=== PATIENT | female | born 1945 | race Caucasian/White ===

== ENCOUNTER → 2016-08-25 | Outpatient (CLI) | payer MEDICARE, OTHER ==
[~2016-08-25] MED LIST: ACID1TAB5 PO; ALLO100T PO; ALPR0.254 PO; ALPR0.5T PO; AMIT25TA9; ASP81CT PO; BARIUM SUSPENSION 2.1% (VANILLA SILQ) 450 ML PO ONE; BSP10T PO; BUSP15TA60 PO; CETI10TA20 PO; CIPR-225 PO; CLCX200C PO; CNC1KV IJ; CYCL1DRO OP; DCS100C PO; DEXL60CA5 PO; ESCI10TA PO; ESCI10TA48 PO; ESCT10T PO; HYDR-3720 PO; HYDR-3812 PO; IBUP-1773 PO; IOHEXOL 350 MG/ML 100 ML (OMNIPAQUE 350) VIAL IV ONE; LACT1CAP62 PO; LANS30CA PO; LUBI24CA PO; LUBI24CA6 PO; LVT.025T PO; METH4TAB10 PO; METR500T PO; NAPR500T3 PO; NFAMINITAB PO; NS 100 ML (IVPB) BAG IV ONE; Nature-Throid; OSTEO BI-FLEX1 EACH PO; OXYC-12 PO; PANT40TA2 PO; POLY17PO23 PO; ROSU5TAB; SCR1T PO; SERT25TA PO; SUCR1TAB36 PO; TEMA30CA PO; THYR32.57 PO; TRAM50TA2 PO; TRAZ150T42 PO; TRAZ150T72 PO; amitiza; aspirin; excedrin; lexapro; mobic; temazepam
--- OUTSIDE RECORDS SUMMARY | 2016-08-25 08:32 | XMS REPORT | Continuity of Care Document ---
Author Author [facility] Organization [facility] Address Unknown Phone Unavailable Care Team Providers Care Patient Observation Assistant Name Role Phone Juan R Mann III PCP [phone] Source Comments Some departments are not documenting in the electronic medical record. If you do not see the information that you expected, contact Release of Information in the Health Information Management department at [phone] for further assistance in locating additional records.[facility] Active Allergies and Adverse Reactions No Known [...] C-Vit Take 1 Cap by mouth Active C-Lopbea-Lec-OM-3 daily. (OCUVITE) 605-54-1-150 zy-esyw-oo-mg cap Lactobacillus rhamnosus Take 1 Cap by [...] Adenocarcinoma of right lung (HCC) 09/16/2015 Overview: Isabelle Walls presents to clinic for consult up CT scan of his chest. As you know, we have been following Isabelle Walls for her history of right lower lobe adenocarcinoma. This was surgically resected via Right VATS right lower lobectomy with Dr. Iona Oconnor on 02/25/15. Pathology confirmed: Adenocarcinoma, papillary predominant, Pathologic Staging (pTNM) [id number], Tumor Size 3.1 x 2.8 x 2.2 [...] to call Dr. Michael Garza's office in [facility] for further care. I will be happy to see her anytime if needed. Pulmonary nodule 02/17/[address] 12/25/2014 Overview: All imaging from [place], [place]- will have all reports scanned RLL [...] Thu Rea 06/01/2016 Documentation Oncology Kika Espinosa, ARCENIOD Social History Tobacco Use Types Packs/Day Years Used Date Former Smoker Cigarettes 0.5 15 Quit: 06/19/1981 Smokeless Tobacco: Never Used Alcohol Use Drinks/Week oz/Week Comments Yes One glass of wine once a month Last Filed Vital Signs Vital Sign Reading Time Taken Blood Pressure 136/56 06/01/2016 2:36 PM MIDWIFE PRACTITIONER Pulse 72 06/01/2016 2:36 PM MIDWIFE PRACTITIONER Temperature 37.4 C (99.3 F) 05/16/2016 10:26 AM MIDWIFE PRACTITIONER Respiratory Rate 16 06/01/2016 2:36 PM MIDWIFE PRACTITIONER Height 1.549 m (5' 0.98") 06/01/2016 2:36 PM MIDWIFE PRACTITIONER Weight 84.641 kg (186 lb 9.6 oz) 06/01/2016 2:36 PM MIDWIFE PRACTITIONER Body Mass Index 35.28 06/01/2016 2:36 PM MIDWIFE PRACTITIONER Oxygen Saturation 98% 06/01/2016 2:36 PM MIDWIFE PRACTITIONER Plan of Care Health Maintenance Due Date Last Done Comments Hepatitis C Screening 1945 Physical (Comprehensive) 1953 Exam Pertussis Vaccine 1957 Tetanus Vaccine 1963 Breast Cancer Screening 1986 Colorectal Cancer 1996 Screening Shingles Vaccine 2006 Osteoporosis Screening 2011 Prevnar/Pneumovax (#1) 2011 Influenza Vaccine 02/17/2017 Results from Last 3 Months [facility] REF LAB SCAN (05/30/2016 9:47 AM)Only the most recent of 3 results within the time period is included. Narrative Ordered by an unspecified provider.
[2016-08-25] MEDS: CATHETER FLUSH 10 ML SYR IV PRN ×2 (08:44→09:00)
--- NOTE | 2016-08-25 12:56 | Diagnostic Imaging Report ---
PROCEDURE: CT chest and abdomen with contrast. TECHNIQUE: Multiple contiguous axial images were obtained through the chest and abdomen after the administration of intravenous contrast. INDICATION: Lung cancer. FINDINGS: The PET/CT exam performed on 11/18/2014 noted several nodular densities in the right lung base. These showed only slightly increased hypermetabolic activity. Reportedly, the patient subsequently underwent a surgical diagnosis and a diagnosis of non-small cell carcinoma was established. The previous CT abdomen/pelvis exam of 02/20/2016 noted a vague ground-glass density in the right lung base as well as several small nodules. Those findings are again visualized on this study and do not seem to have changed significantly. Even so, I am concerned that they could be related to recurrent neoplasm. The right upper lung and left lung are generally clear. There is no sign of a pleural effusion. The heart is enlarged. The aorta is not abnormally dilated. There is no defect within the pulmonary arteries to indicate a pulmonary embolus. There is no significant mediastinal or hilar adenopathy. The thyroid gland is unremarkable. There is no obvious breast mass. The sections through the abdomen and pelvis show that the liver is homogeneous and not enlarged. The liver is of lower density than usually seen. This appearance does suggest fatty metamorphosis. The spleen, pancreas, adrenals, kidneys, aorta, and inferior vena cava are unremarkable for an acute abnormality. As noted on the prior exam, the gallbladder is surgically absent. The stomach is partially filled with oral contrast and consequently difficult to assess. The previous study did show post-kyphoplasty changes involving T11 and T12. Those findings are again evident and no different. There is no fracture or acute bony abnormality appreciated. IMPRESSION: 1. The ground-glass density in the right lung base and the nodules seen in this area on the previous CT abdomen/pelvis exam are again evident and not significantly changed. Even so, these findings are worrisome for recurrent neoplasm. If further imaging is desired, then PET/CT would be recommended. 2. There is no acute cardiopulmonary abnormality noted otherwise. 3. The appearance of the abdomen is stable when compared to the prior exam. 4. These results were discussed with MARCELO Jason. Dictated by: Dictated on workstation # [id number]
--- NOTE | 2016-08-25 18:48 | Diagnostic Imaging Report ---
EXAMINATION: Whole body bone scan. INDICATION: Lung carcinoma. TECHNIQUE: This study was performed following administration of 26.4 mCi of 99m technetium MDP. Anterior and posterior whole body images as well as spot lateral films of the skull and thorax were obtained. COMPARISON: There are no previous bone scans available for comparison. FINDINGS: There is generalized distribution of the radiotracer throughout the osseous structures. There is no focal area of increased or decreased activity to suggest metastatic disease or an acute bony abnormality. There is increased activity about both shoulder and knee joints. This is probably degenerative in nature. Also, there does appear to be a total knee prosthesis in place on the left. There is slightly increased activity in the midportion of left tibia compared to the right tibia. This is of uncertain etiology but could be secondary to the presence of the prosthesis. This does not have the appearance of metastatic disease. Both kidneys do show excretion of the radiotracer. IMPRESSION: There is no abnormal uptake to suggest skeletal metastatic disease. Dictated by: Dictated on workstation # [id number]
== END ==
LOC: RAD 08:28
PROVIDERS: ATTEND Nurse Practitioner Adult Health
DX: C34.81 Malignant neoplasm of overlapping sites of right bronchus and lung (principal)
CPT/HCPCS: 71260; 74160; 78306

== ENCOUNTER 2016-09-13 13:10 | Outpatient (RCR) | payer MEDICARE, OTHER ==
--- OUTSIDE RECORDS SUMMARY | 2016-06-22 09:26 | XMS REPORT | Continuity of Care Document ---
Author Author [facility] Organization [facility] Address Unknown Phone Unavailable Care Team Providers Care Remote Sensing Technologist Name Role Phone Juan R Mann III PCP [phone] Source Comments Some departments are not documenting in the electronic medical record. If you do not see the information that you expected, contact Release of Information in the Health Information Management department at [phone] for further assistance in locating additional records.[facility] Active Allergies and Adverse Reactions No Known Allergies Current Medications Prescription Sig. Disp. Refills Start End Date Status Date busPIRone (BUSPAR) 15 mg Take 15 mg by mouth twice Active tablet daily. dexlansoprazole (+) Take 60 mg by mouth Active (DEXILANT) 60 mg capsule daily. escitalopram oxalate Take 10 mg by mouth at Active (LEXAPRO) 10 mg tablet bedtime daily. traZODone (DESYREL) 150 Take 150 mg by mouth at Active mg tablet bedtime daily. Vit C-Vit Take 1 Cap by mouth Active F-Svyprl-Suz-OM-3 daily. (OCUVITE) 939-97-1-150 yu-tbiw-wd-mg cap Lactobacillus rhamnosus Take 1 Cap by mouth daily Active GG (LACTOBACILLUS as needed. RHAMNOSUS (GG)) 15 billion cell cpSP polyethylene glycol 3350 Take 17 g by mouth daily. Active (GLYCOLAX; MIRALAX) 17 gram/dose powder cyanocobalamin(DIL) Inject 100 mcg to area(s) Active (VITAMIN B-12, RUBRAMIN) as directed every 30 100 mcg/mL days. NATURE-THROID 32.5 mg tab Take 1 Tab by mouth Active daily. traMADol (ULTRAM) 50 mg Take 1-2 Tabs by mouth 60 Tab 0 02/28/20 Active tablet every 6 hours as needed 15 for Pain. LUBIPROSTONE (AMITIZA PO) Take 2 Tabs by mouth. Active afatinib (GILOTRIF) 40 mg Take 1 Tab by mouth 30 Tab 3 06/01/20 Active tablet daily. Take on an empty 16 stomach, at least 1 hour before or 2 hours after food. afatinib (GILOTRIF) 40 mg Take 0.75 Tabs by mouth 30 Tab 3 06/01/20 06/01/20 Discontin tablet daily. Take on an empty 16 16 ued stomach, at least 1 hour before or 2 hours after food. Active Problems Problem Noted Date Adenocarcinoma of right lung (HCC) 09/16/2015 Overview: Mook Carrasco presents to clinic for consult up CT scan of his chest. As you know, we have been following Mook Carrasco for her history of right lower lobe adenocarcinoma. This was surgically resected via Right VATS right lower lobectomy with Dr. Iona Oconnor on 02/25/15. Pathology confirmed: Adenocarcinoma, papillary predominant, Pathologic Staging (pTNM) [id number], Tumor Size 3.1 x 2.8 x 2.2 cm. 04/08/16 CT chest IMPRESSION 1. Increase in size and number of bilateral nodular opacities, concerning for metastatic disease. Infection is an additional, though less likely consideration. 2. No thoracic lymphadenopathy. 04/21/2016- Bronchoscopy - Bronchial Alveolar Lavage, RML: Malignant cells present, consistent with adenocarcinoma. The Grocott stain is negative for Pneumocystis and other fungal organisms. 05/11/2016- Brain MRI- No evidence of intracranial metastatic disease. Moderate chronic microvascular ischemic changes. 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 Last Assessment & Plan: She is here for follow up. I reviewed molecular pathology with her showing exon 19 deletion, this is sensitive EGFR mutation , will have high response rate to EGFR TKI. I discussed I discussed afatinib , EGFR mutation and significant benefit of the drug. I also discussed toxicities including skin rash and diarrhea. Rash management with use of doxycycline and steroid cream discussed and instructed patient to use those medication properly. She will take Afatinib until progression. Dose reduction is possible to manage toxicities. She has knee replacement surgery next week, I want her to start after about a week of surgery. She signed consent, prescription sent to pharmacy. She desires to follow up [place] minimize travel. I encourage her to make appointment and switch care locally. She is planning to call Dr. Michael Garza's office in [facility] for further care. I will be happy to see her anytime if needed. Pulmonary nodule 02/17/[address] 12/25/2014 Overview: All imaging from [place], [place]- will have all reports scanned RLL nodularities near hemidiaphragm. Increased in number since 2009. SUV on PET 2.2 Bronch 6.3.2015- will have all path scanned RLL brush and lavage Negative for malignant cells. Negative AFB, fungal, scant haemophilus (given Levaquin). L ast Assessment & Plan: Reviewed all scans including scan from 2009 and all pathology. Recommending eval with CTS for consideration of resection. Dr. Saeed and I were able to review the prior scan (from 2009) with our radiologist. There is notable increase in nodularity noted in right lung base, despite lack of FDG uptake, there remains a concern for AIS (formally CARMEN). Discussed consultation with surgery, and she is somewhat reluctant. She was agreeable to go for consultation. We discuss alternative to surgery would be serial scan. We could possibly discuss CT guided biopsy with IR, but I think this location would be difficult for them to biopsy. Cough and wheezing 12/25/2014 Last Assessment & Plan: Normal spirometry. Recommended that she try albuterol to see if it helps with her symptoms. Seem to be intermittent. Additional considerations would include GERD she is on Dexilant. Will try the albuterol first to see if it improves her symptoms. Constipation 08/20/2012 Diverticulitis 08/20/2012 Heartburn 08/20/2012 Most Recent Encounters Date Type Specialty Providers Description 06/01/2016 Office Visit Oncology Nikhil Yang MD Adenocarcinoma of right lung (HCC) (Primary Dx) 06/01/2016 Documentation Thu Rea 06/01/2016 Documentation Oncology Kika Espinosa, PHARMD 05/18/2016 [facility] Nikhil Yang MD Malignant neoplasm of Encounter unspecified part of unspecified bronchus or lung 05/16/2016 Office Visit Oncology Iona Oconnor MD Primary lung cancer with Nikhil Yang MD metastasis from lung to other site, right (HCC) (Primary Dx); Adenocarcinoma of right lung (HCC) 05/10/2016 Hospital Radiology Iona Oconnor MD Encounter 05/10/2016 [facility] Radiology Iona Oconnor MD Encounter 05/10/2016 Telephone Oncology Nikhil Yang MD Navigation Assessment 05/10/2016 Screening Form 05/09/2016 Screening Form 04/28/2016 Cancer Cardiothoracic Surgery Luis A Gutierrez Conference MD 04/26/2016 Orders Only Cardiothoracic Surgery Farzaneh Norwood RN Adenocarcinoma of right lung (HCC) (Primary Dx); Recurrent adenocarcinoma of lung, right (HCC) 04/21/2016 [facility] Luis Tamez MD Lung cancer (HCC) Encounter 04/21/2016 Cancer Cardiothoracic Surgery Citlaly Segundo, Conference PLANT ECOLOGIST-AN/SQQ 89(V)15 SONAR SYSTEM JOURNEYMAN 04/21/2016 Surgery Alan Desouza MD BRONCHOSCOPY FLEXIBLE 04/20/2016 Anesthesia Jadyn Martinez MD Event 04/11/2016 Prep for Case Pulmonology Tarah Noel APRN-C 04/08/2016 [facility] Radiology Citlaly Segundo, Encounter PLANT ECOLOGIST-AN/SQQ 89(V)15 SONAR SYSTEM JOURNEYMAN 04/08/2016 Office Visit Cardiothoracic Surgery Citlaly Segundo, Adenocarcinoma of right PLANT ECOLOGIST-AN/SQQ 89(V)15 SONAR SYSTEM JOURNEYMAN lung (HCC) (Primary Dx); Pulmonary nodule; Cough and wheezing; Abnormal chest CT Social History Tobacco Use Types Packs/Day Years Used Date Former Smoker Cigarettes 0.5 15 Quit: 06/19/1981 Smokeless Tobacco: Never Used Alcohol Use Drinks/Week oz/Week Comments Yes One glass of wine once a month Last Filed Vital Signs Vital Sign Reading Time Taken Blood Pressure 136/56 06/01/2016 2:36 PM DIRECTOR BUSINESS DEVELOPMENT Pulse 72 06/01/2016 2:36 PM DIRECTOR BUSINESS DEVELOPMENT Temperature 37.4 C (99.3 F) 05/16/2016 10:26 AM DIRECTOR BUSINESS DEVELOPMENT Respiratory Rate 16 06/01/2016 2:36 PM DIRECTOR BUSINESS DEVELOPMENT Height 1.549 m (5' 0.98") 06/01/2016 2:36 PM DIRECTOR BUSINESS DEVELOPMENT Weight 84.641 kg (186 lb 9.6 oz) 06/01/2016 2:36 PM DIRECTOR BUSINESS DEVELOPMENT Body Mass Index 35.28 06/01/2016 2:36 PM DIRECTOR BUSINESS DEVELOPMENT Oxygen Saturation 98% 06/01/2016 2:36 PM DIRECTOR BUSINESS DEVELOPMENT Plan of Care Health Maintenance Due Date Last Done Comments Hepatitis C Screening 1945 Physical (Comprehensive) 1953 Exam Pertussis Vaccine 1957 Tetanus Vaccine 1963 Breast Cancer Screening 1986 Colorectal Cancer 1996 Screening Shingles Vaccine 2006 Osteoporosis Screening 2011 Prevnar/Pneumovax (#1) 2011 Influenza Vaccine 02/18/2016 Procedures from Last 3 Months Procedure Name Priority Date/Time Associated Diagnosis Comments PROCEDURE RECORD-SCAN 05/24/2016 Results for this 10:41 AM DIRECTOR BUSINESS DEVELOPMENT procedure are in the results section. BRONCHOSCOPY WITH 04/21/2016 Lung cancer (HCC) ULTRASOUND 11:44 AM CDT Special Needs SATTERWHIT E/FREED . PLEASE SCHEDULE 04/21/16 AT 12:00NOON. 90 MIN BLOCK. THANKS BRONCHOSCOPY WITH LAVAGE 04/21/2016 Lung cancer (HCC) 11:44 AM CDT Special Needs SATTERWHIT E/FREED . PLEASE SCHEDULE 04/21/16 AT 12:00NOON. 90 MIN BLOCK. THANKS BRONCHOSCOPY FLEXIBLE 04/21/2016 Lung cancer (HCC) 11:44 AM CDT Special Needs SATTERWHIT E/FREED . PLEASE SCHEDULE 04/21/16 AT 12:00NOON. 90 MIN BLOCK. THANKS Results from Last 3 Months [facility] PATH [facility]LEC REF LAB SCAN (05/30/2016 9:47 AM)Only the most recent of 3 results within the time period is included. Narrative Ordered by an unspecified provider. PROCEDURE RECORD-SCAN (05/24/2016 10:41 AM) Narrative Ordered by an unspecified provider. CYTOGENETICS SCAN (05/20/2016 1:03 PM)Only the most recent of 2 results within the time period is included. Narrative Ordered by an unspecified provider. MISCELLANEOUS SURGICAL PATHOLOGY REFERENCE LAB TEST (05/18/2016 4:00 PM) Component Value Range Test PDL 1 clone 22C3 Reference Lab [facility] Results Ref Lab SEE EMAIL MARKETING INTERN FOR REPORT Specimen Mail slides EPIDERMAL GROWTH FACTOR RECEPTOR (05/18/2016 4:00 PM) Component Value Range Epidermal GFR SEE EMAIL MARKETING INTERN FOR REPORT CHROMOSOMES FISH DNA PROBE (05/18/2016 10:00 AM)Only the most recent of 2 results within the time period is included. Component Value Range Chromosomes Fish DNA SEE EMAIL MARKETING INTERN FOR REPORT Probe MRI HEAD WO/W CONTRAST (05/10/2016 1:06 PM) Impressions 1.No evidence of intracranial metastatic disease. 2.Moderate chronic microvascular ischemic changes. Finalized by SHAYLEE CALRK M.D. on 05/10/2016 1:48 PM. Dictated by SHAYLEE CLARK M.D. on 05/10/2016 1:46 PM. Narrative MRI HEAD WO/W CONTRAST Clinical indication: LUNG CANCER, UNSPECIFIED. Technique: Pre and postcontrast MRI of the brain was performed. Comparison: None Findings: The subarachnoid spaces and ventricles are normal in size for the patient's age. There are moderate supratentorial and pontine white matter FLAIR hyperintensities. No enhancing lesions are identified. There is no mass effect or midline shift. There is no evidence of recent infarct or intracranial hemorrhage. The major and cranial flow voids are preserved. The globes and orbits are unremarkable part from prior bilateral lens surgeries. The paranasal sinuses and mastoid air cells are clear. Procedure Note Interface, Radiant Results - Tue May 10, 2016 1:51 PM DIRECTOR BUSINESS DEVELOPMENT MRI HEAD WO/W CONTRAST Clinical indication: LUNG CANCER, UNSPECIFIED. Technique: Pre and postcontrast MRI of the brain was performed. Comparison: None Findings: The subarachnoid spaces and ventricles are normal in size for the patient's age. There are moderate supratentorial and pontine white matter FLAIR hyperintensities. No enhancing lesions are identified. There is no mass effect or midline shift. There is no evidence of recent infarct or intracranial hemorrhage. The major and cranial flow voids are preserved. The globes and orbits are unremarkable part from prior bilateral lens surgeries. The paranasal sinuses and mastoid air cells are clear. IMPRESSION 1. No evidence of intracranial metastatic disease. 2. Moderate chronic microvascular ischemic changes. Finalized by SHAYLEE CLARK M.D. on 05/10/2016 1:48 PM. Dictated by SHAYLEE CLARK M.D. on 05/10/2016 1:46 PM. POC CREATININE, RAD (05/10/2016 12:42 PM) Component Value Range Creatinine, POC 0.7 0.4-1.00 MG/DL NM PET SCAN TORSO (SKULL-THIGHS) (05/10/2016 10:36 AM) Impressions Low level metabolic activity in known right lower lobe nodular infiltrate with additional nodules remaining to small to accurately characterize by PET. Unchanged differential considerations of infection versus metastatic disease. Biopsy could be obtained for further evaluation if indicated. Approved by Buddy Cao M.D. on 05/11/2016 3:58 PM By my electronic signature, I attest that I have personally reviewed the images for this examination and formulated the interpretations and opinions expressed in this report Finalized by Derek Mendez M.D. on 05/11/2016 3:58 PM. Dictated by Buddy Cao M.D. on 05/11/2016 3:45 PM. Narrative PET/CT NECK, CHEST, ABDOMEN AND PELVIS CLINICAL HISTORY: Female, 70 years old. Lung nodule. COMPARISON: November 18, 2014. RADIOPHARMACEUTICAL: 17.8 mCi IV Fluorine-18 fluorodeoxyglucose (FDG) BLOOD GLUCOSE LEVEL AT THE TIME OF RADIOPHARMACEUTICAL ADMINISTRATION: 86 mg / dL TECHNIQUE: Routine PET images ranging from the base of the skull to the upper thighs were obtained 60 minutes after IV administration of F-18 Fluorodeoxyglucose (FDG). PET images were reviewed in standard orthogonal projections. Low dose non- contrast CT imaging was performed for attenuation correction and localization purposes. FINDINGS: Mean hepatic SUV 2.84, maximum 4.35. Physiologic uptake of F-18 Fluorodeoxyglucose (FDG) tracer is seen within the brain, heart, kidneys, bladder, and bowel. Head / Neck: No metabolically active nodes are visualized in the head or neck. Chest: Low level activity is seen throughout the right lower lobe nodular infiltrates with max SUV of 2.96. Abdomen / Pelvis: No metabolically active nodes are visualized in the abdomen or pelvis. Osseous Structures: No metabolically active areas are visualized in the osseous structures. Additional significant low dose CT findings: Redemonstration of subcentimeter bilateral pulmonary nodules which remain too small to accurately characterize by PET imaging. Prior cholecystectomy. T12 and L1 compression fracture deformities with prior kyphoplasty. Uncorrected PET images:The uncorrected PET images demonstrate no additional abnormality. Procedure Note Interface, Radiant Results - MonMay 11, 2016 4:01 PM DIRECTOR BUSINESS DEVELOPMENT PET/CT NECK, CHEST, ABDOMEN AND PELVIS CLINICAL HISTORY: Female, 70 years old. Lung nodule. COMPARISON: November 18, 2014. RADIOPHARMACEUTICAL: 17.8 mCi IV Fluorine-18 fluorodeoxyglucose (FDG) BLOOD GLUCOSE LEVEL AT THE TIME OF RADIOPHARMACEUTICAL ADMINISTRATION: 86 mg / dL TECHNIQUE: Routine PET images ranging from the base of the skull to the upper thighs were obtained 60 minutes after IV administration of F-18 Fluorodeoxyglucose (FDG). PET images were reviewed in standard orthogonal projections. Low dose non- contrast CT imaging was performed for attenuation correction and localization purposes. FINDINGS: Mean hepatic SUV 2.84, maximum 4.35. Physiologic uptake of F-18 Fluorodeoxyglucose (FDG) tracer is seen within the brain, heart, kidneys, bladder, and bowel. Head / Neck: No metabolically active nodes are visualized in the head or neck. Chest: Low level activity is seen throughout the right lower lobe nodular infiltrates with max SUV of 2.96. Abdomen / Pelvis: No metabolically active nodes are visualized in the abdomen or pelvis. Osseous Structures: No metabolically active areas are visualized in the osseous structures. Additional significant low dose CT findings: Redemonstration of subcentimeter bilateral pulmonary nodules which remain too small to accurately characterize by PET imaging. Prior cholecystectomy. T12 and L1 compression fracture deformities with prior kyphoplasty. Uncorrected PET images: The uncorrected PET images demonstrate no additional abnormality. IMPRESSION Low level metabolic activity in known right lower lobe nodular infiltrate with additional nodules remaining to small to accurately characterize by PET. Unchanged differential considerations of infection versus metastatic disease. Biopsy could be obtained for further evaluation if indicated. Approved by Buddy Cao M.D. on 05/11/2016 3:58 PM By my electronic signature, I attest that I have personally reviewed the images for this examination and formulated the interpretations and opinions expressed in this report Finalized by Derek Mendez M.D. on 05/11/2016 3:58 PM. Dictated by Buddy Cao M.D. on 05/11/2016 3:45 PM. RVP VIRAL PANEL PCR (04/21/2016 2:02 PM) Component Value Range Specimen Source BRONCHIAL ALVEOLAR LAVAGE Adenovirus NOT DETECTED Coronavirus 229E NOT DETECTED Coronavirus HKU1 NOT DETECTED Coronavirus NL63 NOT DETECTED Coronavirus OC43 NOT DETECTED Human Metapneumovirus NOT DETECTED Human NOT DETECTED Rhinovirus/ENTEROVIRUS Influenza A H1N1 2009 NOT DETECTED Influenza A H1 NOT DETECTED Influenza A H3 NOT DETECTED Influenza B NOT DETECTED Parainfluenza 1 NOT DETECTED Parainfluenza 2 NOT DETECTED Parainfluenza 3 NOT DETECTED Parainfluenza 4 NOT DETECTED RSV NOT DETECTED Bordetella Pertussis NOT DETECTED Chlamydophila Pneumoniae NOT DETECTED Mycoplasma Pneumoniae NOT DETECTED Specimen Nasal Wash PJP JIROVECI QUANT PCR (04/21/2016 2:02 PM) Component Value Range PJP Jiroveci BAL PCR Not Detected Quant Unit: DNA copies/ml Assay Range: 84 copies/mL to 1x10e8 copies/mL Expected Value: Not Detected- The limit of quantitation (LOQ) is 84 copies/mL.- Pneumocystis jiroveci DNA detected below the LOQ will be reported as Detected: <84 copies/mL. This test was developed and its performance characteristics determined by [employer]. It has not been cleared or approved by the U.S. Food and Drug Administration.-Results should be used in conjunction with clinical findings, and should not form the sole basis for a diagnosis or treatment decision.- PCR tests are performed pursuant to a license agreement with [employer]. Testing Performed At: [facility] [place] [address] CLIA ID: [id number] Specimen Bronchial Washing RML ASPERGILLUS GALACTOMANN (04/21/2016 2:02 PM) Component Value Range Aspergillus Galactomann 0.057Comment: BAL Reference Value: Index value less than 0.5.- Interpretation:- Patients with an index value of greater than or equal to 0.5 are considered to be positive for galactomannan antigen.-The Platelia(TM) Aspergillus EIA package insert also recommends a new sample be collected from the patient for follow-up testing.-Patients with an index value of less than 0.5 are considered to be negative for galactomannan antigen.-A negative result may indicate that the patients result is below the detectable level of the assay.- Negative results do not rule out the diagnosis of Invasive Aspergillosis.-Pursuant to the package insert, repeat testing is recommended if the result is negative, but the disease is suspected. Due to the potential for environmental contamination when transferred to pour-off tubes, which can lead to false positive results, interpret positive results from samples provided in pour-off tubes with caution.-Results should be used in conjunction with clinical findings, and should not form the sole basis for a diagnosis or treatment decision.- The Platelia Aspergillus Galactomannan EIA is a product of [employer] and is FDA approved for in vitro diagnostic use. Testing Performed At: [facility] [address] [place] [address] CLIA ID: [id number] Specimen Bronchial Washing RML CMV QUANT PCR-FLUID (04/21/2016 2:02 PM) Component Value Range Specimen, CMV BRONCHIAL ALVEOLAR LAVAGE CMV by PCR-fluid Negative for CMV CMV Comment-Fluid This assay uses analyte specific reagents to detect CMV DNA in plasma or fluid. It has not been cleared or approved by the US Food and Drug Administration. The performance characteristics were determined by the [facility]. Results should be correlated with clinical findings. Specimen Fluid - Bronchial Alveolar Lavage GRAM STAIN (04/21/2016 2:02 PM) Component Value Range Battery Name GRAM STAIN Specimen Description BRONCHIAL ALVEOLAR LAVAGE, RML Special Requests NONE Gram Stain RARE NEUTROPHILS FEW RBC'S NO ORGANISMS SEEN Report Status FINAL 04/21/2016 Specimen Bronchial Alveolar Lavage,RML CULTURE-TB (AFB) (04/21/2016 2:02 PM) Component Value Range Battery Name AFB CULTURE Specimen Description BRONCHIAL ALVEOLAR LAVAGE, RML Special Requests NONE Acid Fast Stain NO ACID FAST BACILLI SEEN Culture NO GROWTH OF MYCOBACTERIA AT 6 WEEKS Report Status FINAL 06/06/2016 Specimen Bronchial Alveolar Lavage,RML CULTURE-FUNGAL,OTHER (04/21/2016 2:02 PM) Component Value Range Battery Name FUNGUS CULTURE Specimen Description BRONCHIAL ALVEOLAR LAVAGE, RML Special Requests NONE Culture NO GROWTH OF FUNGUS AT 4 WEEKS Report Status FINAL 05/23/2016 Specimen Bronchial Alveolar Lavage,RML CULTURE-RESP,LOWER W/SENSITIVITY (04/21/2016 2:02 PM) Component Value Range Battery Name LOWER RESP CULTURE Specimen Description BRONCHIAL ALVEOLAR LAVAGE, RML Special Requests NONE Direct Gram Stain RARE NEUTROPHILS FEW RBC'S NO ORGANISMS SEEN Culture Light growth NORMAL OROPHARYNGEAL ROSA Report Status FINAL 04/23/2016 Specimen Bronchial Alveolar Lavage,RML NON-ON AIR DIRECTOR CYTOLOGY (BODY FLUIDS/TISSUE) (04/21/2016 9:59 AM)Only the most recent of 2 results within the time period is included. Component Value Range Cytology [facility] [email or web address] Faith Lancaster MD, Director Cytopathology Department of Pathology and Laboratory Medicine [address] [place] [phone] Office: [phone] CYTOLOGY REPORT NAME: MOOK CARRASCO CYTOLOGY #: [id number] MR #: [id number] ALT ID #: [id number] #: [id number] LOCATION: DATE OF PROCEDURE: 04/21/2016 09:59 AGE: 70 SEX: F DATE RECEIVED: 04/22/2016 : 1945 TIME RECEIVED: 09:59 PHYSICIAN: LUIS TAMEZ DATE OF REPORT: 04/25/2016 COPY TO: Jhoana POLLOCK DATE OF PRINTIN04/25/2016 HISTORY: Date of Last Menstrual Period: None Given Menstrual History: None Given Contraceptive History: None Given Cancer History: None Given Infection History: None Given Treatment History: None Given Other Clinical Conditions: None Given CLINICAL DIAGNOSIS: 70 year old woman with history of adenocarcinoma of the right lung. MATERIAL RECEIVED: A: Bronchial Brushing, RML ################################################## ###################### Final Diagnosis: A. Bronchial Brushing, RML: Negative for malignant cells. Please also see cytology report ([id number]). Attestation: By this signature, I attest that I have personally formulated the final interpretation expressed in this report and that the above diagnosis is based upon my examination of the slides and/or other material indicated in this report. af/04/25/2016 +++Electronically Signed Out By Floyd Stack MD PhD, Attending Physician+++ Cervical cytology is a SCREENING TEST primarily for detecting cancers and precancerous lesions. This screening test has a well documented false negative rate. Your patient's pap test results should be interpreted in conjunction with history and clinical findings. Reported using [facility] terminology. ################################################## ###################### CT CHEST WO CONTRAST (04/08/2016 10:44 AM) Impressions 1.Increase in size and number of bilateral nodular opacities, concerning for metastatic disease. Infection is an additional, though less likely consideration. 2.No thoracic lymphadenopathy. Approved by Fatmata Clark M.D. on 04/08/2016 11:36 AM By my electronic signature, I attest that I have personally reviewed the images for this examination and formulated the interpretations and opinions expressed in this report Finalized by SARA COTE M.D. on 04/08/2016 12:00 PM. Dictated by Fatmata Clark M.D. on 04/08/2016 10:[address] Chest Clinical Indication:Female, 70 years old. Pulmonary nodule Technique: Multiple contiguous axial CT images were obtained through the chest without IV contrast. Post processing coronal and sagittal reconstruction images were made from the axial images. IV contrast: None. Comparison: CT chest from 09/15/2015 Findings: Evaluation of the mediastinum and sd, including the vasculature and for lymphadenopathy, is limited without the use of IV contrast. Axilla, Mediastinum and Sd: No hilar, mediastinal, or axillary lymphadenopathy is identified. Heart and Great Vessels: The heart size is normal without pericardial effusion. Airway, Lungs and Pleura: There has been a previous right lower lobectomy. Clustered nodules in the posterior right lower lung have increased in size and number with progression of adjacent surrounding groundglass opacity. Ground glass nodules have developed in the left upper lobe with a few tiny nodules in the left lower lobe. No pleural effusion or pneumothorax is identified. Upper Abdomen: Prior cholecystectomy is noted. Chest Wall and Osseous Structures: Prior cement augmentation is again seen at T11 and T12 with unchanged compression deformities at these levels. No destructive osseous lesion is identified. Procedure Note Interface, Radiant Results - MonApr 08, 2016 12:[address] Chest Clinical Indication: Female, 70 years old. Pulmonary nodule Technique: Multiple contiguous axial CT images were obtained through the chest without IV contrast. Post processing coronal and sagittal reconstruction images were made from the axial images. IV contrast: None. Comparison: CT chest from 09/15/2015 Findings: Evaluation of the mediastinum and sd, including the vasculature and for lymphadenopathy, is limited without the use of IV contrast. Axilla, Mediastinum and Sd: No hilar, mediastinal, or axillary lymphadenopathy is identified. Heart and Great Vessels: The heart size is normal without pericardial effusion. Airway, Lungs and Pleura: There has been a previous right lower lobectomy. Clustered nodules in the posterior right lower lung have increased in size and number with progression of adjacent surrounding groundglass opacity. Ground glass nodules have developed in the left upper lobe with a few tiny nodules in the left lower lobe. No pleural effusion or pneumothorax is identified. Upper Abdomen: Prior cholecystectomy is noted. Chest Wall and Osseous Structures: Prior cement augmentation is again seen at T11 and T12 with unchanged compression deformities at these levels. No destructive osseous lesion is identified. IMPRESSION 1. Increase in size and number of bilateral nodular opacities, concerning for metastatic disease. Infection is an additional, though less likely consideration. 2. No thoracic lymphadenopathy. Approved by Fatmata Clark M.D. on 04/08/2016 11:36 AM By my electronic signature, I attest that I have personally reviewed the images for this examination and formulated the interpretations and opinions expressed in this report Finalized by SARA COTE M.D. on 04/08/2016 12:00 PM. Dictated by Fatmata Clark M.D. on 04/08/2016 10:53 AM.
[2016-06-22 10:54] LABS: BASOPHILS % (AUTO) 1 % (0-10); EOSINOPHILS # (AUTO) 0.2 10^3/uL (0.0-0.3); EOSINOPHILS % (AUTO) 3 % (0-10); LYMPHOCYTES % (AUTO) 13 % (12-44); MEAN CORPUSCULAR HEMOGLOBIN 27 PG (25-34); MEAN CORPUSCULAR HGB CONC 32 G/DL (32-36); MEAN CORPUSCULAR VOLUME 86 FL (80-99); MEAN PLATELET VOLUME 8.5 FL (7.4-10.4); MONOCYTES # (AUTO) 0.8 X 10^3 (0.0-1.0); MONOCYTES % (AUTO) 10 % (0-12); NEUTROPHILS # (AUTO) 5.8 X 10^3 (1.8-7.8); NEUTROPHILS % (AUTO) 74 % (42-75); PLATELET COUNT 376 10^3/uL (130-400); RED BLOOD COUNT 4.14 10^6/uL (4.35-5.85); RED CELL DISTRIBUTION WIDTH 17.3 % (10.0-14.5); WHITE BLOOD COUNT 7.8 10^3/uL (4.3-11.0)
[2016-06-22 11:42] LABS: ALANINE AMINOTRANSFERASE 17 U/L (0-55); ANION GAP 9 MMOL/L (5-14); ASPARTATE AMINO TRANSFERASE 18 U/L (5-34); BILIRUBIN,TOTAL 0.5 MG/DL (0.1-1.0); BLOOD UREA NITROGEN 16 MG/DL (7-18); BUN/CREATININE RATIO 22; CALCIUM 9.1 MG/DL (8.5-10.1); CARBON DIOXIDE 23 MMOL/L (21-32); CHLORIDE 106 MMOL/L (98-107); CREATININE SERUM 0.74 MG/DL (0.60-1.30); GFR ESTIMATED > 60; GLUCOSE 90 MG/DL (70-105); LACTATE DEHYDROGENASE 276 U/L (125-220); POTASSIUM 4.3 MMOL/L (3.6-5.0); SODIUM 138 MMOL/L (135-145); TOTAL PROTEIN 7.1 G/DL (6.4-8.2)
--- NOTE | 2016-06-22 13:36 | Diagnostic Imaging Report ---
PA and lateral chest at 11:13 a.m. INDICATION: Wxi-lbzww-dwmo carcinoma of lung. FINDINGS: The heart size is within normal limits and stable when compared to 03/12/2015. The prominent epicardial fat pad in the right cardiophrenic angle seen previously is again evident and no different. The lungs are clear. There is no sign of failure, pneumonia or of a pleural effusion to suggest an acute abnormality. There is no parenchymal lung mass identified either. The mediastinum is not widened. The osseous structures are intact. Postkyphoplasty changes involving T12 and L1 are again noted. IMPRESSION: There is no evidence for an acute cardiopulmonary abnormality. Overall, there has been no adverse change since the prior exam. Dictated by: Dictated on workstation # [id number]
[2016-06-27 12:16] LABS: BILIRUBIN,URINE NEGATIVE (NEGATIVE); KETONES,URINE NEGATIVE (NEGATIVE); LEUKOCYTE ESTERASE ,URINE NEGATIVE (NEGATIVE); NITRITE,URINE NEGATIVE (NEGATIVE); PH,URINE 6 (5-9); PROTEIN,URINE NEGATIVE (NEGATIVE); UROBILINOGEN,URINE NORMAL (NORMAL)
[2016-06-27 12:38] LABS: SQUAMOUS EPITHELIAL CELL,UR RARE /HPF
[2016-07-20 11:13] LABS: BASOPHILS % (AUTO) 0 % (0-10); EOSINOPHILS # (AUTO) 0.3 10^3/uL (0.0-0.3); EOSINOPHILS % (AUTO) 6 % (0-10); LYMPHOCYTES % (AUTO) 21 % (12-44); MEAN CORPUSCULAR HEMOGLOBIN 27 PG (25-34); MEAN CORPUSCULAR HGB CONC 32 G/DL (32-36); MEAN CORPUSCULAR VOLUME 84 FL (80-99); MEAN PLATELET VOLUME 9.2 FL (7.4-10.4); MONOCYTES # (AUTO) 0.4 X 10^3 (0.0-1.0); MONOCYTES % (AUTO) 8 % (0-12); NEUTROPHILS % (AUTO) 64 % (42-75); PLATELET COUNT 317 10^3/uL (130-400); WHITE BLOOD COUNT 4.6 10^3/uL (4.3-11.0)
--- NOTE | 2016-07-20 11:25 | Diagnostic Imaging Report ---
INDICATION: Lung cancer EXAMINATION: PA and lateral chest Heart size and pulmonary vascularity are normal. Lungs are clear. There are no effusions or pneumothoraces. IMPRESSION: Negative chest. No change compared to 06/22/2016. Dictated by: Dictated on workstation # [id number]
[2016-07-20 11:46] LABS: ALANINE AMINOTRANSFERASE 14 U/L (0-55); ALBUMIN 4.3 G/DL (3.2-4.5); ANION GAP 10 MMOL/L (5-14); ASPARTATE AMINO TRANSFERASE 19 U/L (5-34); BILIRUBIN,TOTAL 0.6 MG/DL (0.1-1.0); BLOOD UREA NITROGEN 22 MG/DL (7-18); BUN/CREATININE RATIO 28; CALCIUM 9.1 MG/DL (8.5-10.1); CARBON DIOXIDE 25 MMOL/L (21-32); CHLORIDE 106 MMOL/L (98-107); GFR ESTIMATED > 60; GLUCOSE 91 MG/DL (70-105); POTASSIUM 3.7 MMOL/L (3.6-5.0); SODIUM 141 MMOL/L (135-145); TOTAL PROTEIN 7.3 G/DL (6.4-8.2)
[2016-07-21 11:10] LABS: MAGNESIUM 2.1 MG/DL (1.8-2.4)
[2016-08-18 11:10] LABS: BASOPHILS % (AUTO) 0 % (0-10); EOSINOPHILS # (AUTO) 0.2 10^3/uL (0.0-0.3); EOSINOPHILS % (AUTO) 4 % (0-10); LYMPHOCYTES # (AUTO) 1.2 X 10^3 (1.0-4.0); LYMPHOCYTES % (AUTO) 23 % (12-44); MEAN CORPUSCULAR HEMOGLOBIN 27 PG (25-34); MEAN CORPUSCULAR HGB CONC 32 G/DL (32-36); MEAN CORPUSCULAR VOLUME 84 FL (80-99); MEAN PLATELET VOLUME 9.7 FL (7.4-10.4); MONOCYTES # (AUTO) 0.7 X 10^3 (0.0-1.0); MONOCYTES % (AUTO) 12 % (0-12); NEUTROPHILS # (AUTO) 3.3 X 10^3 (1.8-7.8); NEUTROPHILS % (AUTO) 61 % (42-75); PLATELET COUNT 295 10^3/uL (130-400); RED BLOOD COUNT 4.66 10^6/uL (4.35-5.85); RED CELL DISTRIBUTION WIDTH 15.9 % (10.0-14.5); WHITE BLOOD COUNT 5.4 10^3/uL (4.3-11.0)
[2016-08-18 12:06] LABS: ALANINE AMINOTRANSFERASE 16 U/L (0-55); ALBUMIN 4.1 G/DL (3.2-4.5); ANION GAP 11 MMOL/L (5-14); ASPARTATE AMINO TRANSFERASE 21 U/L (5-34); BILIRUBIN,TOTAL 0.5 MG/DL (0.1-1.0); BLOOD UREA NITROGEN 22 MG/DL (7-18); BUN/CREATININE RATIO 29; CALCIUM 8.7 MG/DL (8.5-10.1); CARBON DIOXIDE 22 MMOL/L (21-32); CHLORIDE 108 MMOL/L (98-107); CREATININE SERUM 0.76 MG/DL (0.60-1.30); GFR ESTIMATED > 60; GLUCOSE 90 MG/DL (70-105); MAGNESIUM 2.1 MG/DL (1.8-2.4); POTASSIUM 4.2 MMOL/L (3.6-5.0); SODIUM 141 MMOL/L (135-145); TOTAL PROTEIN 6.5 G/DL (6.4-8.2)
[2016-08-18 14:29] LABS: THYROID STIMULATING HORMONE 1.79 UIU/ML (0.35-4.94)
[~2016-09-13 13:10] MED LIST changes: -BARIUM SUSPENSION 2.1% (VANILLA SILQ) 450 ML PO ONE; -IOHEXOL 350 MG/ML 100 ML (OMNIPAQUE 350) VIAL IV ONE; -NS 100 ML (IVPB) BAG IV ONE
[2016-09-13 13:27] LABS: BASOPHILS % (AUTO) 0 % (0-10); EOSINOPHILS # (AUTO) 0.2 10^3/uL (0.0-0.3); EOSINOPHILS % (AUTO) 3 % (0-10); LYMPHOCYTES # (AUTO) 1.2 X 10^3 (1.0-4.0); LYMPHOCYTES % (AUTO) 18 % (12-44); MEAN CORPUSCULAR HEMOGLOBIN 26 PG (25-34); MEAN CORPUSCULAR HGB CONC 33 G/DL (32-36); MEAN CORPUSCULAR VOLUME 81 FL (80-99); MEAN PLATELET VOLUME 9.6 FL (7.4-10.4); MONOCYTES # (AUTO) 0.6 X 10^3 (0.0-1.0); MONOCYTES % (AUTO) 9 % (0-12); NEUTROPHILS # (AUTO) 4.7 X 10^3 (1.8-7.8); NEUTROPHILS % (AUTO) 70 % (42-75); PLATELET COUNT 335 10^3/uL (130-400); RED BLOOD COUNT 4.95 10^6/uL (4.35-5.85); RED CELL DISTRIBUTION WIDTH 15.6 % (10.0-14.5); WHITE BLOOD COUNT 6.8 10^3/uL (4.3-11.0)
[2016-09-13 14:32] LABS: ALANINE AMINOTRANSFERASE 16 U/L (0-55); ALBUMIN 4.2 G/DL (3.2-4.5); ANION GAP 10 MMOL/L (5-14); ASPARTATE AMINO TRANSFERASE 18 U/L (5-34); BILIRUBIN,TOTAL 0.5 MG/DL (0.1-1.0); BLOOD UREA NITROGEN 14 MG/DL (7-18); BUN/CREATININE RATIO 18; CALCIUM 9.3 MG/DL (8.5-10.1); CARBON DIOXIDE 25 MMOL/L (21-32); CHLORIDE 105 MMOL/L (98-107); CREATININE SERUM 0.76 MG/DL (0.60-1.30); GFR ESTIMATED > 60; GLUCOSE 90 MG/DL (70-105); POTASSIUM 4.1 MMOL/L (3.6-5.0); SODIUM 140 MMOL/L (135-145); TOTAL PROTEIN 7.2 G/DL (6.4-8.2)
== END 2016-09-20 | disposition home or self-care (01) ==
LOC: ONC 13:10
PROVIDERS: ATTEND Internal Medicine Hematology & Oncology
DX: C34.81 Malignant neoplasm of overlapping sites of right bronchus and lung (principal); R53.83 Other fatigue; F41.9 Anxiety disorder, unspecified; F32.9 Major depressive disorder, single episode, unspecified; K21.9 Gastro-esophageal reflux disease without esophagitis; Z79.899 Other long term (current) drug therapy
CPT/HCPCS: 36415; 71020; 80053; 81000; 83615; 83735; 84443; 85025; 99213; 99214

== ENCOUNTER → 2016-11-21 | Outpatient (CLI) | payer MEDICARE, OTHER ==
[~2016-11-21] MED LIST changes: +BARIUM SUSPENSION 2.1% (VANILLA SILQ) 450 ML PO ONE; +CATHETER FLUSH 10 ML SYR IV PRN; +IOHEXOL 350 MG/ML 100 ML (OMNIPAQUE 350) VIAL IV ONE; +NS 100 ML (IVPB) BAG IV ONE
[2016-11-21] MEDS: CATHETER FLUSH 10 ML SYR IV PRN ×2 (11:01→11:24)
--- NOTE | 2016-11-21 13:18 | Diagnostic Imaging Report ---
PROCEDURE: CT chest and abdomen with contrast. INDICATION: Lung cancer. TECHNIQUE: CT imaging of the chest and abdomen following the administration of intravenous contrast. CORRELATION STUDY: 08/25/2016. FINDINGS: CT CHEST: Stable enlargement of the heart. Thoracic aortic contour is unremarkable. There are no pathologically enlarged mediastinal and/or hilar lymph nodes. Small hiatal hernia is present. Postoperative changes of the right lobectomy are noted. There is shift of the mediastinal structures towards the right hemithorax. There are again noted faint wispy-like nodular densities about the residual right lung base. However, these overall are stable to perhaps slightly less pronounced compared to prior imaging. A definitive enlarging mass type of appearance is not suggested. Left lung is clear. Tiny calcified granuloma of the lingula. Visualized osseous structures are without nicole destructive or sclerotic changes. Multilevel kyphoplasty changes of T11-T12 level. CT ABDOMEN: Liver is elongated at greater than 20 cm in length but overall size is likely within normal limits. There is diffuse low attenuation, suggestive of hepatic steatosis. Spleen, pancreas, and adrenal glands are unremarkable. Gallbladder is absent. Abdominal aorta is normal in contour. No pathologically enlarged central or retroperitoneal lymph nodes. Kidneys are with normal enhancement. Partially visualized gastrointestinal tract is unremarkable. The visualized osseous structures are with degenerative changes about the lumbar spine. No lytic or sclerotic changes suggested. Pelvis is not imaged. IMPRESSION: CT CHEST: 1. Postoperative changes of the right lung. Faint areas of nodularity of the right lung base are again demonstrated but overall stable to slightly less pronounced. No definitive new or enlarging mass-type lesion or evidence for thoracic lymphadenopathy. CT ABDOMEN: 1. Negative for acute findings and/or metastatic disease of the abdomen. Dictated by: Dictated on workstation # [id number]
--- NOTE | 2016-11-21 15:10 | Diagnostic Imaging Report ---
Whole body bone scan. Technique: After the intravenous administration of 26.6 mCi of Technetium 99m MDP, whole body delayed phase bone scan images were obtained with lateral views of the head and neck and the chest regions. Indication: Lung cancer. COMPARISON: 08/25/2016 Findings: There is normal distribution of the tracer in the osseous structures with superimposed mild to moderate increased activity around joints particularly the shoulders and the knees in a degenerative pattern. Photopenia in the left knee suggestive of knee replacement is identified. Excretion in the kidneys and bladder seen. There is no intense foci particularly within the axial skeleton to suggest metastasis. IMPRESSION: No scintigraphic evidence of metastasis. Dictated by: Dictated on workstation # [id number]
== END ==
LOC: CARD 10:33
PROVIDERS: ATTEND Nurse Practitioner Adult Health
DX: C34.31 Malignant neoplasm of lower lobe, right bronchus or lung (principal)
CPT/HCPCS: 71260; 74160; 78306

== ENCOUNTER 2016-12-01 14:06 | Outpatient (RCR) | payer MEDICARE, OTHER ==
[2016-09-26 12:08] LABS: BASOPHILS % (AUTO) 0 % (0-10); EOSINOPHILS # (AUTO) 0.2 10^3/uL (0.0-0.3); EOSINOPHILS % (AUTO) 5 % (0-10); LYMPHOCYTES % (AUTO) 22 % (12-44); MEAN CORPUSCULAR HEMOGLOBIN 26 PG (25-34); MEAN CORPUSCULAR HGB CONC 32 G/DL (32-36); MEAN CORPUSCULAR VOLUME 81 FL (80-99); MEAN PLATELET VOLUME 9.9 FL (7.4-10.4); MONOCYTES # (AUTO) 0.5 X 10^3 (0.0-1.0); MONOCYTES % (AUTO) 11 % (0-12); NEUTROPHILS # (AUTO) 2.9 X 10^3 (1.8-7.8); NEUTROPHILS % (AUTO) 62 % (42-75); PLATELET COUNT 287 10^3/uL (130-400); RED BLOOD COUNT 4.96 10^6/uL (4.35-5.85); RED CELL DISTRIBUTION WIDTH 16.3 % (10.0-14.5); WHITE BLOOD COUNT 4.6 10^3/uL (4.3-11.0)
[2016-09-26 13:05] LABS: ALANINE AMINOTRANSFERASE 21 U/L (0-55); ALBUMIN 4.1 G/DL (3.2-4.5); ANION GAP 11 MMOL/L (5-14); ASPARTATE AMINO TRANSFERASE 21 U/L (5-34); BILIRUBIN,TOTAL 0.7 MG/DL (0.1-1.0); BLOOD UREA NITROGEN 16 MG/DL (7-18); BUN/CREATININE RATIO 21; CALCIUM 9.2 MG/DL (8.5-10.1); CARBON DIOXIDE 24 MMOL/L (21-32); CHLORIDE 108 MMOL/L (98-107); CREATININE SERUM 0.76 MG/DL (0.60-1.30); GFR ESTIMATED > 60; GLUCOSE 108 MG/DL (70-105); POTASSIUM 3.8 MMOL/L (3.6-5.0); SODIUM 143 MMOL/L (135-145); TOTAL PROTEIN 7.2 G/DL (6.4-8.2)
--- NOTE | 2016-09-26 13:05 | Diagnostic Imaging Report ---
INDICATION: Lung cancer. COMPARISON: 07/20/2016. FINDINGS: Lower thoracic kyphoplasty treatments noted. No acute-appearing chest wall pathology. Heart size and vascularity are within normal limits. The lungs remain clear. Elevation of the right hemidiaphragm anteriorly a chronic finding. No effusion or pneumothorax. IMPRESSION: Stable chest. Dictated by: Dictated on workstation # [id number]
[2016-09-26 13:25] LABS: THYROID STIMULATING HORMONE 1.85 UIU/ML (0.35-4.94)
--- NOTE | 2016-10-25 13:04 | Diagnostic Imaging Report ---
INDICATION: Lung cancer. EXAMINATION: PA and lateral chest. FINDINGS: Heart size and pulmonary vascularity are normal. Lungs are clear. There are no effusions or pneumothoraces. IMPRESSION: No acute abnormalities of the chest. No interval change since comparison exam dated 09/26/2016. Dictated by: Dictated on workstation # [id number]
[2016-10-25 13:10] LABS: BASOPHILS % (AUTO) 1 % (0-10); EOSINOPHILS # (AUTO) 0.2 10^3/uL (0.0-0.3); EOSINOPHILS % (AUTO) 4 % (0-10); LYMPHOCYTES # (AUTO) 1.5 X 10^3 (1.0-4.0); LYMPHOCYTES % (AUTO) 28 % (12-44); MEAN CORPUSCULAR HEMOGLOBIN 26 PG (25-34); MEAN CORPUSCULAR HGB CONC 33 G/DL (32-36); MEAN CORPUSCULAR VOLUME 80 FL (80-99); MEAN PLATELET VOLUME 10.1 FL (7.4-10.4); MONOCYTES # (AUTO) 0.6 X 10^3 (0.0-1.0); MONOCYTES % (AUTO) 11 % (0-12); NEUTROPHILS % (AUTO) 57 % (42-75); PLATELET COUNT 282 10^3/uL (130-400); RED BLOOD COUNT 4.85 10^6/uL (4.35-5.85); RED CELL DISTRIBUTION WIDTH 16.8 % (10.0-14.5); WHITE BLOOD COUNT 5.3 10^3/uL (4.3-11.0)
[2016-10-25 13:34] LABS: ALANINE AMINOTRANSFERASE 16 U/L (0-55); ALBUMIN 4.2 G/DL (3.2-4.5); ANION GAP 10 MMOL/L (5-14); ASPARTATE AMINO TRANSFERASE 20 U/L (5-34); BILIRUBIN,TOTAL 0.8 MG/DL (0.1-1.0); BLOOD UREA NITROGEN 23 MG/DL (7-18); BUN/CREATININE RATIO 32; CALCIUM 9.1 MG/DL (8.5-10.1); CARBON DIOXIDE 24 MMOL/L (21-32); CHLORIDE 107 MMOL/L (98-107); CREATININE SERUM 0.73 MG/DL (0.60-1.30); GFR ESTIMATED > 60; GLUCOSE 89 MG/DL (70-105); POTASSIUM 3.8 MMOL/L (3.6-5.0); SODIUM 141 MMOL/L (135-145)
[~2016-12-01 14:06] MED LIST changes: -BARIUM SUSPENSION 2.1% (VANILLA SILQ) 450 ML PO ONE; -CATHETER FLUSH 10 ML SYR IV PRN; -IOHEXOL 350 MG/ML 100 ML (OMNIPAQUE 350) VIAL IV ONE; -NS 100 ML (IVPB) BAG IV ONE
[2016-12-01 14:40] LABS: BASOPHILS % (AUTO) 0 % (0-10); EOSINOPHILS # (AUTO) 0.2 10^3/uL (0.0-0.3); EOSINOPHILS % (AUTO) 3 % (0-10); LYMPHOCYTES # (AUTO) 1.4 X 10^3 (1.0-4.0); LYMPHOCYTES % (AUTO) 23 % (12-44); MEAN CORPUSCULAR HEMOGLOBIN 26 PG (25-34); MEAN CORPUSCULAR HGB CONC 32 G/DL (32-36); MEAN CORPUSCULAR VOLUME 82 FL (80-99); MONOCYTES # (AUTO) 0.7 X 10^3 (0.0-1.0); MONOCYTES % (AUTO) 12 % (0-12); NEUTROPHILS # (AUTO) 3.8 X 10^3 (1.8-7.8); NEUTROPHILS % (AUTO) 63 % (42-75); PLATELET COUNT 293 10^3/uL (130-400); RED BLOOD COUNT 4.75 10^6/uL (4.35-5.85); RED CELL DISTRIBUTION WIDTH 17.3 % (10.0-14.5); WHITE BLOOD COUNT 6.1 10^3/uL (4.3-11.0)
[2016-12-01 15:05] LABS: ALANINE AMINOTRANSFERASE 12 U/L (0-55); ALBUMIN 4.3 GM/DL (3.2-4.5); ANION GAP 9 MMOL/L (5-14); ASPARTATE AMINO TRANSFERASE 17 U/L (5-34); BILIRUBIN,TOTAL 0.7 MG/DL (0.1-1.0); BLOOD UREA NITROGEN 17 MG/DL (7-18); BUN/CREATININE RATIO 22 (0-20); CARBON DIOXIDE 22 MMOL/L (21-32); CHLORIDE 108 MMOL/L (98-107); CREATININE SERUM 0.76 MG/DL (0.60-1.30); GFR ESTIMATED > 60; GLUCOSE 93 MG/DL (70-105); HEMOLYSIS 9 (0-29); ICTERUS 0.6 (0-1.9); LIPEMIA 16 (0-49); SODIUM 139 MMOL/L (135-145); TOTAL PROTEIN 6.4 GM/DL (6.4-8.2)
== END 2016-12-25 | disposition home or self-care (01) ==
LOC: ONC 14:06
PROVIDERS: ATTEND Internal Medicine Hematology & Oncology
DX: C34.91 Malignant neoplasm of unspecified part of right bronchus or lung (principal); C78.01 Secondary malignant neoplasm of right lung; C78.02 Secondary malignant neoplasm of left lung; R53.83 Other fatigue; F41.9 Anxiety disorder, unspecified; F32.9 Major depressive disorder, single episode, unspecified; K21.9 Gastro-esophageal reflux disease without esophagitis; K59.00 Constipation, unspecified; R21 Rash and other nonspecific skin eruption; N39.3 Stress incontinence (female) (male); Z79.899 Other long term (current) drug therapy
CPT/HCPCS: 36415; 71020; 80053; 84443; 85025; 99213

== ENCOUNTER 2016-12-28 07:27 | Outpatient (CLI) | payer MEDICARE, OTHER ==
[~2016-12-28] VITALS: Ht 154.9 cm; Wt 77.6 kg
[2016-12-28] MEDS ORDERED: ZOLP10TA PO (10:08)
[2016-12-28] MEDS ORDERED: AFAT20TA PO (10:08)
== END 2016-12-28 10:10 ==
LOC: PREOP 07:27
PROVIDERS: ATTEND Surgery
DX: Z01.818 Encounter for other preprocedural examination (principal); K62.5 Hemorrhage of anus and rectum

== ENCOUNTER 2016-12-30 10:42 | Day surgery (SDC) | payer MEDICARE, OTHER ==
[~2016-12-30] VITALS: Ht 154.9 cm; Wt 77.6 kg
[~2016-12-30 10:42] MED LIST changes: +AFAT20TA PO; -NAPR500T3 PO; +NAPR500T4 PO; +ZOLP10TA PO
--- OUTSIDE RECORDS SUMMARY | 2016-12-30 10:46 | XMS REPORT | Continuity of Care Document ---
Author Author [facility] Organization [facility] Address Unknown Phone Unavailable Care Team Providers Care Emergency Service Worker Name Role Phone Baljit Mann III PCP [phone] Source Comments Some departments are not documenting in the electronic medical record. If you do not see the information that you expected, contact Release of Information in the Health Information Management department at [phone] for further assistance in locating additional records.[facility] Active Allergies and Adverse Reactions No Known Allergies Current Medications Prescription Sig. Disp. Refills Start End Date Status Date busPIRone (BUSPAR) 15 mg Take 15 mg by mouth twice Active tablet daily. dexlansoprazole (+) Take 60 mg by mouth Active (DEXILANT) 60 mg capsule daily. escitalopram oxalate Take 10 mg by mouth at Active (LEXAPRO) 10 mg tablet bedtime daily. Vit C-Vit Take 1 Cap by mouth Active Z-Heoirv-Yiy-OM-3 daily. (OCUVITE) 035-41-4-150 ma-ihvc-tt-mg cap Lactobacillus rhamnosus Take 1 Cap by mouth daily Active GG (LACTOBACILLUS as needed. RHAMNOSUS (GG)) 15 billion cell cpSP polyethylene glycol 3350 Take 17 g by mouth daily. Active (GLYCOLAX; MIRALAX) 17 gram/dose powder cyanocobalamin(DIL) Inject 100 mcg to area(s) Active (VITAMIN B-12, RUBRAMIN) as directed every 30 100 mcg/mL days. NATURE-THROID 32.5 mg tab Take 1 Tab by mouth Active daily. afatinib (GILOTRIF) 20 mg Take 20 mg by mouth Active tablet daily. Take on an empty stomach, at least 1 hour before or 2 hours after food. lubiprostone (AMITIZA) 24 Take 24 mcg by mouth Active mcg cap twice daily with meals. zolpidem (AMBIEN) 10 mg Take 10 mg by mouth at Active tablet bedtime daily. hyoscyamine (ANASPAZ; Place 125 mcg under Active NULEV; SYMAX FASTABS; tongue every 4 hours as HYOMAX-FT; ED-SPAZ; needed for Cramps. OSCIMIN) 0.125 mg rapid dissolve tablet traZODone (DESYREL) 150 Take 150 mg by mouth at 12/29/19 Discontin mg tablet bedtime daily. 17 ued traMADol (ULTRAM) 50 mg Take 1-2 Tabs by mouth 60 Tab 0 02/28/2006/07 Discontin tablet every 6 hours as needed 15 17 ued for Pain. LUBIPROSTONE (AMITIZA PO) Take 2 Tabs by mouth. 12/29/19 Discontin 17 ued afatinib (GILOTRIF) 40 mg Take 1 Tab by mouth 30 Tab 3 06/01/2006/07 Discontin tablet daily. Take on an empty 16 17 ued stomach, at least 1 hour before [...] confirmed: Adenocarcinoma, papillary predominant, Pathologic Staging (pTNM) [id number]/a, Tumor Size 3.1 x 2.8 x 2.2 [...] to call Dr. Michael Garza's office in [facility] for further care. I will be happy to see her anytime if needed. Pulmonary nodule 02/17/[address] 12/25/2014 Overview: All imaging from [place], [place]- will have all reports scanned RLL [...] Recent Encounters Date Type Specialty Providers Description 12/22/2016 Documentation Oncology Radha Chavez Social History Tobacco Use Types Packs/Day Years Used Date Former Smoker Cigarettes 0.5 15 Quit: 06/19/1981 Smokeless Tobacco: Never Used Alcohol Use Drinks/Week oz/Week Comments Yes One glass of wine once a month Last Filed Vital Signs Vital Sign Reading Time Taken Blood Pressure 136/56 06/01/2016 2:36 PM COFFEE SUPERVISOR Pulse 72 06/01/2016 2:36 PM COFFEE SUPERVISOR Temperature 37.4 C (99.3 F) 05/16/2016 10:26 AM COFFEE SUPERVISOR Respiratory Rate 16 06/01/2016 2:36 PM COFFEE SUPERVISOR Height 1.549 m (5' 0.98") 06/01/2016 2:36 PM COFFEE SUPERVISOR Weight 84.641 kg (186 lb 9.6 oz) 06/01/2016 2:36 PM COFFEE SUPERVISOR Body Mass Index 35.28 06/01/2016 2:36 PM COFFEE SUPERVISOR Oxygen Saturation 98% 06/01/2016 2:36 PM COFFEE SUPERVISOR Plan of Care Health Maintenance Due Date Last Done Comments Hepatitis C Screening 1945 Physical (Comprehensive) 1953 Exam Pertussis Vaccine 1957 Tetanus Vaccine 1963 Breast Cancer Screening 1986 Colorectal Cancer 1996 Screening Shingles Vaccine 2006 Osteoporosis Screening 2011 Prevnar/Pneumovax (#1) 2011 Influenza Vaccine 02/17/2017 Results from Last 3 Months Not on file
[2016-12-30] MEDS ORDERED: LIDOCAINE JELLY 2% (XYLOCAINE) 5 ML TUBE MM PRN (11:00)
[2016-12-30] MEDS ORDERED: NS IV 500 ML 500 ML IV PRN (11:15)
[2016-12-30 11:28] VITALS: BP 135/78
[2016-12-30] MEDS ORDERED: MIDAZOLAM 2 MG/2 ML (VERSED) VIAL ONE ×5 (11:30→13:21)
[2016-12-30] MEDS ORDERED: fentaNYL INJECTION 100 MCG/2 ML AMP ONE ×2 (11:31)
[2016-12-30] MEDS ORDERED: LIDOCAINE JELLY 2% (XYLOCAINE) 5 ML TUBE ONE (11:31)
--- NOTE | 2016-12-30 13:02 | Conscious Sedation/ASA ---
Conscious Sedation Pre-Proced Time Reviewed: 12:30 ASA Class: 3 Airway Mallampati Classification: (fort mojave appropriate class) I. II. III, IV Lungs Heart ASA score ASA 1: a normal healthy patient ASA 2: a patient with a mild systemic disease (mid diabetes, controlled hypertension, obesity ASA 3: a patient with a severe systemic disease that limits activity (angina , COPD, prior Myocardial infarction) ASA 4: a patient with an incapacitating disease that is a constant threat to life (CHF, renal failure) ASA 5: a moribund patient not expected to survive 24 hrs. (ruptured aneurysm) ASA 6: a declared brain patient whose organs are being harvested. For emergent operations, add the letter E after the classification Grade 2 Sedation Plan: Analgesia, Amnesia, Plan communicated to team members, Discussed options with patient/fam, Discussed risks with patient/fam Note The patient is an appropriate candidate to undergo the planned procedure, sedation, and anesthesia. The patient immediately re-assessed prior to indication. ROZ ARNOLD MD Dec 30, 2016 1:02 pm
--- NOTE | 2016-12-30 13:04 | Progress Note-Pre Operative ---
Pre-Operative Progress Note H&P Reviewed The H&P was reviewed, patient examined and no changes noted. Date Seen by Provider: Dec 30, 2016 Time Seen by Provider: 12:30 Date H&P Reviewed: Dec 30, 2016 Time H&P Reviewed: 12:30 Pre-Operative Diagnosis: rectal bleeding, hx lung ca ROZ ARNOLD MD Dec 30, 2016 1:04 pm
[2016-12-30] MEDS: MIDAZOLAM 2 MG/2 ML (VERSED) VIAL IVP PRN ×5 (13:05→13:24)
[2016-12-30] MEDS: fentaNYL INJECTION 100 MCG/2 ML AMP IVP PRN ×4 (13:06→13:18)
[2016-12-30] MEDS ORDERED: ONDANSETRON 4 MG/2 ML (SDV) Z0FRAN IV PRN (13:15)
[2016-12-30] MEDS ORDERED: morphine INJ 10 MG/ML 1ML (SYR OR VIAL) IV PRN (13:15)
[2016-12-30] MEDS ORDERED: HYDROcodone/APAP 5 MG/325 MG (LORTAB) TAB PO PRN (13:15)
[2016-12-30] MEDS ORDERED: ACETAMINOPHEN 325 MG TABLET/CAPLET (TYLENOL) PO PRN (13:15)
--- NOTE | 2016-12-30 14:01 | Progress Note-Post Operative ---
Post-Operative Progess Note Surgeon (s)/Software Test Engineer (s) Surgeon ROZ ARNOLD MD Software Test Engineer: none Pre-Operative Diagnosis rectal bleeding, hx lung ca Post-Operative Diagnosis chronic stage 2 ext and int hemorrhoids, moderate-severe sigmoid diverticulosis, mild colitis splenic flexure, no active bleeding. Procedure & Operative Findings Date of Procedure 12/30/16 Procedure Performed/Findings Colonoscopy with bx. Anesthesia Type CS Estimated Blood Loss Estimated blood loss (mL): minimal Specimens/Packing Specimens Removed splenic flexure ROZ ARNOLD MD Dec 30, 2016 2:01 pm
--- NOTE | 2016-12-30 14:04 | Discharge Inst-Surgical ---
D/C Lap Instructions-CAT[place] Follow Up PRN Activity as tolerated High Fiber Diet 25g or more per day Avoid Alcohol, Caffeine, Spicy Maben and Acid foods. Drink 64 fluid oz or more of fluids per day. Symptoms to Report: Fever over 101 degree F, Nausea/Vomiting If any problems/questions: Contact your physician or go to Emergency Room ROZ ARNOLD MD Dec 30, 2016 2:04 pm
[2016-12-30 14:05] VITALS: BP 106/66
[2016-12-30 14:30] VITALS: BP 106/66
--- NOTE | 2017-01-02 10:40 | OPERATIVE REPORT ---
PROCEDURE PHYSICIAN: ROZ HUERTAS DATE OF PROCEDURE: 12/30/2016 ATTENDING PRIMARY CARE PHYSICIAN: Dr. Kelly PREOPERATIVE DIAGNOSIS: Rectal bleeding with history of lung cancer. POSTOPERATIVE DIAGNOSES: 1. Chronic stage II external and internal hemorrhoids. 2. Moderate to severe sigmoid diverticulosis with no active bleeding. 3. Mild descending colitis with no active bleeding. 4. No polyps or any neoplasms identified. PROCEDURE: Colonoscopy with biopsy. SURGEON: Dr. Huertas. ANESTHESIA: Conscious sedation. ESTIMATED BLOOD LOSS: Minimal. FINDINGS: 1. Chronic, stage II external and internal hemorrhoids, not actively edematous or inflamed and no bleeding. 2. There was a moderate to severe sigmoid diverticulosis with no bleeding or mucosal inflammatory changes, as well as no bleeding. 3. There was a mild colitis of the descending colon near the splenic flexure. No other abnormalities were detected. DISPOSITION: The patient tolerated the procedure well. Ms. Isabelle Walls is a 71-year-old female known to us. She has had multiple gastrointestinal issues, including diarrhea, as well as rectal bleeding. She has undergone EGD and colonoscopy by us before in the past. She was found to have reflux esophagitis, mild diffuse gastritis and all biopsies negative. She has also had issues of moderate external and internal hemorrhoids as well as sigmoid diverticulosis. Her hemorrhoids became worse despite maximal medical therapy. She did undergo a formal hemorrhoidectomy In 2012. In 2014 she was diagnosed with lung cancer and underwent thoracotomy, right lower lobectomy February 2015. She did have issues with pain in the left lower abdominal quadrant and underwent another EGD and colonoscopy in 07/2015. EGD showed the same reflux esophagitis and small hiatal hernia, as well as gastritis. Colonoscopy showed chronic, stage II external and internal hemorrhoids and a moderate sigmoid diverticulosis. There was also a small area identified at the hepatic flexure that was inflamed consistent with a focal active colitis on pathology. She was referred to gastroenterology where some medication regimen was started; however, this discontinued. She was started on an oral chemotherapeutic regimen for her lung cancer called Afatinib 30 mg daily. Since that time she had reported noticing small amounts of red blood per rectum. The patient was brought to the endoscopy suite, laid in the left lateral decubitus position. After adequate IV pain and sedative medications and conscious sedation anesthesia, a digital rectal examination was performed. Chronic, stage II external and internal hemorrhoids were identified were identified which were not actively edematous or inflamed and no bleeding. Normal sphincter tone was felt and there were no palpable masses. The endoscope was then intubated into the anus, rectum gently insufflated. The endoscope was then advanced through the valves of [place] of the rectum with no polyps or any neoplasms identified. Through the sigmoid colon a moderate to severe sigmoid diverticulosis identified. There were no mucosal inflammatory changes to indicate any active diverticulitis as well as no bleeding. The endoscope was then advanced through descending colon around the splenic flexure. Around this region, there was a mild colitis identified once again. There was no active bleeding identified. A biopsy was taken of this area using forceps and visualization of good hemostasis. The endoscope was then advanced through the remainder of the transverse and ascending colon to the cecum. These segments were normal. Throughout the colon and rectum there were no active bleeding sites as well as no neoplasms identified. The endoscope was then slowly withdrawn while taking a second look and suctioning residual air with no additional findings. The patient tolerated the procedure well. We will await the biopsy results however treat her conservatively with a high fiber diet with at least 25 to 30 grams of fiber per day, as well as at least 64 fluid ounces of water to promote soft stools on a daily basis. We are unsure of etiology of the rectum bleeding, however, may be due to, internal hemorrhoid flare-up versus mild diverticular bleeding versus mild colitis. We feel that due to her previous history this might be related to a low-level underlying ischemic colitis. Job ID: [id number] Dictated Date: 12/30/2016 13:59:17 Fsr Date: 01/02/2017 10:18:57 / demi GARCIA
== END 2016-12-30 14:30 | disposition home or self-care (01) ==
LOC: ENDO 10:42
PROVIDERS: ATTEND Surgery
DX: K62.5 Hemorrhage of anus and rectum (principal); K64.1 Second degree hemorrhoids; K57.30 Diverticulosis of large intestine without perforation or abscess without bleeding; K52.9 Noninfective gastroenteritis and colitis, unspecified; K63.89 Other specified diseases of intestine; C34.91 Malignant neoplasm of unspecified part of right bronchus or lung; K21.9 Gastro-esophageal reflux disease without esophagitis; K58.1 Irritable bowel syndrome with constipation; E03.9 Hypothyroidism, unspecified; Z79.899 Other long term (current) drug therapy

== ENCOUNTER → 2017-02-16 | Outpatient (CLI) | payer MEDICARE, OTHER ==
[~2017-02-16] MED LIST changes: +BARIUM SUSPENSION 2.1% (VANILLA SILQ) 450 ML PO ONE; +CATHETER FLUSH 10 ML SYR IV PRN; +IOHEXOL 350 MG/ML 100 ML (OMNIPAQUE 350) VIAL IV ONE; +NAPR500T3 PO; -NAPR500T4 PO; +NS 100 ML (IVPB) BAG IV ONE
[2017-02-16] MEDS: CATHETER FLUSH 10 ML SYR IV PRN ×2 (11:06→11:24)
--- NOTE | 2017-02-16 14:04 | Diagnostic Imaging Report ---
PROCEDURE: CT chest and abdomen with contrast. TECHNIQUE: Multiple contiguous axial images were obtained through the chest and abdomen after the administration of intravenous contrast. INDICATION: Lung cancer. The previous CT chest and abdomen exam of 11/21/16 failed to show any sign of malignancy or of an acute abnormality. FINDINGS: As on the prior exam, there are postsurgical changes consistent with prior partial lobectomy of the right lung. The volume loss on the right seen previously is again evident and no different. The lungs are generally clear. The vague area of slightly increased density in the right midlung seen previously is again evident and no different. There is still no sign of an acute cardiopulmonary abnormality. The heart size is enlarged but stable. The aorta is not abnormally dilated and there is no defect within the pulmonary arteries to indicate a pulmonary embolus. There is no mediastinal or hilar adenopathy. The thyroid gland is generally unremarkable. There is no obvious breast mass. The sections through the abdomen show that the liver is of lower density than usually seen. This does suggest fatty metamorphosis. The liver itself is prominent but unchanged in size when compared to the prior exam. The spleen measures 10.4 cm in length and appears similar to the prior study. The pancreas, the adrenals, the aorta and the inferior vena cava are unchanged when compared to the prior exam. The gallbladder is surgically absent. The stomach is partially filled with oral contrast and consequently difficult to assess. There are a few small lymph nodes in the periaortic region. These are similar to the prior study. The bone windows are unremarkable for a fracture or for a destructive lesion. The post kyphoplasty changes involving T11 and T12 seen previously are again evident and no different. IMPRESSION: The appearance of the chest and abdomen is stable when compared to the prior exam. There is no acute cardiopulmonary abnormality identified and there is no sign of neoplastic disease. Dictated by: Dictated on workstation # [id number]
--- NOTE | 2017-02-16 20:32 | Diagnostic Imaging Report ---
EXAMINATION: Whole body bone scan. INDICATION: Lung CA. TECHNIQUE: This study was performed following administration of 25.7 mCi of 99m-technetium MDP. Anterior and posterior whole-body images were obtained. Spot films of the thorax and calvarium were also performed in the lateral projection. FINDINGS: The previous whole body bone scan performed on 11/21/2014 failed to show any sign of metastatic disease. On this exam, there is still generalized uptake of the radiotracer throughout the osseous structures. There is no focal area of increased or decreased activity to suggest metastatic disease. As noted on the prior exam, there is abnormal uptake involving both knee and shoulder joints. Most likely, this is due to degenerative disease. Also, as suggested on the prior exam, there does appear to be a total knee prosthesis in place on the left. Both kidneys do show excretion of the radiotracer. IMPRESSION: The appearance of the bone scan is stable when compared to the prior exam. There is still no abnormal uptake to suggest metastatic disease. Dictated by: Dictated on workstation # [id number]
== END ==
LOC: CARD 10:41
PROVIDERS: ATTEND Nurse Practitioner Adult Health
DX: C34.81 Malignant neoplasm of overlapping sites of right bronchus and lung (principal)
CPT/HCPCS: 71260; 74160; 78306

== ENCOUNTER 2017-03-06 08:41 | Outpatient (RCR) | payer MEDICARE, OTHER ==
[2017-01-12 13:24] LABS: BASOPHILS % (AUTO) 0 % (0-10); EOSINOPHILS # (AUTO) 0.2 10^3/uL (0.0-0.3); EOSINOPHILS % (AUTO) 3 % (0-10); LYMPHOCYTES # (AUTO) 1.3 X 10^3 (1.0-4.0); LYMPHOCYTES % (AUTO) 22 % (12-44); MEAN CORPUSCULAR HEMOGLOBIN 26 PG (25-34); MEAN CORPUSCULAR HGB CONC 32 G/DL (32-36); MEAN CORPUSCULAR VOLUME 82 FL (80-99); MEAN PLATELET VOLUME 9.4 FL (7.4-10.4); MONOCYTES # (AUTO) 0.6 X 10^3 (0.0-1.0); MONOCYTES % (AUTO) 10 % (0-12); NEUTROPHILS # (AUTO) 3.8 X 10^3 (1.8-7.8); NEUTROPHILS % (AUTO) 64 % (42-75); PLATELET COUNT 301 10^3/uL (130-400); RED BLOOD COUNT 4.55 10^6/uL (4.35-5.85); RED CELL DISTRIBUTION WIDTH 15.7 % (10.0-14.5); WHITE BLOOD COUNT 5.9 10^3/uL (4.3-11.0)
[2017-01-12 13:49] LABS: ALANINE AMINOTRANSFERASE 13 U/L (0-55); ALBUMIN 4.1 GM/DL (3.2-4.5); ANION GAP 12 MMOL/L (5-14); ASPARTATE AMINO TRANSFERASE 15 U/L (5-34); BILIRUBIN,TOTAL 0.6 MG/DL (0.1-1.0); BLOOD UREA NITROGEN 20 MG/DL (7-18); BUN/CREATININE RATIO 26; CALCIUM 8.7 MG/DL (8.5-10.1); CARBON DIOXIDE 22 MMOL/L (21-32); CHLORIDE 107 MMOL/L (98-107); CREATININE SERUM 0.76 MG/DL (0.60-1.30); GFR ESTIMATED > 60; GLUCOSE 102 MG/DL (70-105); SODIUM 141 MMOL/L (135-145); TOTAL PROTEIN 7.2 GM/DL (6.4-8.2)
--- NOTE | 2017-01-12 14:20 | Diagnostic Imaging Report ---
PA and lateral views of the chest. INDICATION: Lung cancer. FINDINGS: There is stable opacity in the left lung base probably related to right middle lobe atelectasis. The rest of the lungs appear grossly unremarkable. There is elevation of the right hemidiaphragm with colonic gas seen under the right hemidiaphragm eventration anteriorly. Kyphoplasty changes in the lower thoracic spine seen. When compared to 10/25/2016, no significant change is seen. IMPRESSION: Stable right middle lobe consolidation and atelectasis. Dictated by: Dictated on workstation # [id number]
[2017-02-21 12:37] LABS: BASOPHILS % (AUTO) 0 % (0-10); EOSINOPHILS # (AUTO) 0.3 10^3/uL (0.0-0.3); EOSINOPHILS % (AUTO) 4 % (0-10); LYMPHOCYTES # (AUTO) 1.3 X 10^3 (1.0-4.0); LYMPHOCYTES % (AUTO) 23 % (12-44); MEAN CORPUSCULAR HEMOGLOBIN 25 PG (25-34); MEAN CORPUSCULAR HGB CONC 32 G/DL (32-36); MEAN CORPUSCULAR VOLUME 79 FL (80-99); MEAN PLATELET VOLUME 9.7 FL (7.4-10.4); MONOCYTES # (AUTO) 0.8 X 10^3 (0.0-1.0); MONOCYTES % (AUTO) 14 % (0-12); NEUTROPHILS # (AUTO) 3.4 X 10^3 (1.8-7.8); NEUTROPHILS % (AUTO) 59 % (42-75); PLATELET COUNT 308 10^3/uL (130-400); RED BLOOD COUNT 4.84 10^6/uL (4.35-5.85); RED CELL DISTRIBUTION WIDTH 15.6 % (10.0-14.5); WHITE BLOOD COUNT 5.8 10^3/uL (4.3-11.0)
[2017-02-21 12:58] LABS: ALANINE AMINOTRANSFERASE 14 U/L (0-55); ALBUMIN 4.3 GM/DL (3.2-4.5); ANION GAP 11 MMOL/L (5-14); ASPARTATE AMINO TRANSFERASE 20 U/L (5-34); BILIRUBIN,TOTAL 0.7 MG/DL (0.1-1.0); BLOOD UREA NITROGEN 17 MG/DL (7-18); BUN/CREATININE RATIO 21; CALCIUM 9.2 MG/DL (8.5-10.1); CARBON DIOXIDE 23 MMOL/L (21-32); CHLORIDE 107 MMOL/L (98-107); GFR ESTIMATED > 60; GLUCOSE 95 MG/DL (70-105); POTASSIUM 3.9 MMOL/L (3.6-5.0); SODIUM 141 MMOL/L (135-145); TOTAL PROTEIN 7.6 GM/DL (6.4-8.2)
[~2017-03-06 08:41] MED LIST changes: -BARIUM SUSPENSION 2.1% (VANILLA SILQ) 450 ML PO ONE; -CATHETER FLUSH 10 ML SYR IV PRN; -IOHEXOL 350 MG/ML 100 ML (OMNIPAQUE 350) VIAL IV ONE; -NS 100 ML (IVPB) BAG IV ONE
[2017-03-06 09:15] LABS: BASOPHILS % (AUTO) 0 % (0-10); EOSINOPHILS # (AUTO) 0.2 10^3/uL (0.0-0.3); EOSINOPHILS % (AUTO) 4 % (0-10); LYMPHOCYTES # (AUTO) 1.4 X 10^3 (1.0-4.0); LYMPHOCYTES % (AUTO) 27 % (12-44); MEAN CORPUSCULAR HEMOGLOBIN 25 PG (25-34); MEAN CORPUSCULAR HGB CONC 32 G/DL (32-36); MEAN CORPUSCULAR VOLUME 78 FL (80-99); MEAN PLATELET VOLUME 9.8 FL (7.4-10.4); MONOCYTES # (AUTO) 0.6 X 10^3 (0.0-1.0); MONOCYTES % (AUTO) 12 % (0-12); NEUTROPHILS % (AUTO) 58 % (42-75); PLATELET COUNT 293 10^3/uL (130-400); RED BLOOD COUNT 4.79 10^6/uL (4.35-5.85); RED CELL DISTRIBUTION WIDTH 16.1 % (10.0-14.5); WHITE BLOOD COUNT 5.2 10^3/uL (4.3-11.0)
[2017-03-06 10:07] LABS: ALANINE AMINOTRANSFERASE 13 U/L (0-55); ALBUMIN 4.2 GM/DL (3.2-4.5); ANION GAP 7 MMOL/L (5-14); ASPARTATE AMINO TRANSFERASE 16 U/L (5-34); BILIRUBIN,TOTAL 0.8 MG/DL (0.1-1.0); BLOOD UREA NITROGEN 15 MG/DL (7-18); BUN/CREATININE RATIO 21; CALCIUM 9.1 MG/DL (8.5-10.1); CARBON DIOXIDE 26 MMOL/L (21-32); CHLORIDE 107 MMOL/L (98-107); CREATININE SERUM 0.72 MG/DL (0.60-1.30); GFR ESTIMATED > 60; GLUCOSE 99 MG/DL (70-105); POTASSIUM 3.7 MMOL/L (3.6-5.0); SODIUM 140 MMOL/L (135-145); TOTAL PROTEIN 7.1 GM/DL (6.4-8.2)
== END 2017-03-13 09:33 | disposition home or self-care (01) ==
LOC: ONC 08:41
PROVIDERS: ATTEND Internal Medicine Hematology & Oncology
DX: C34.31 Malignant neoplasm of lower lobe, right bronchus or lung (principal); C78.01 Secondary malignant neoplasm of right lung; C78.02 Secondary malignant neoplasm of left lung; R53.83 Other fatigue; F41.9 Anxiety disorder, unspecified; F32.9 Major depressive disorder, single episode, unspecified; K21.9 Gastro-esophageal reflux disease without esophagitis; K59.00 Constipation, unspecified; R21 Rash and other nonspecific skin eruption; N39.3 Stress incontinence (female) (male); Z79.899 Other long term (current) drug therapy
CPT/HCPCS: 36415; 71020; 80053; 85025; 99213

== ENCOUNTER 2017-07-14 10:21 | Outpatient (RCR) | payer MEDICARE, OTHER ==
[~2017-07-14 10:21] MED LIST changes: +ACHD5005 PO; -HYDR-3812 PO; +NAPR-915 PO; -NAPR500T3 PO
[2017-07-14 11:05] LABS: BASOPHILS % (AUTO) 0 % (0-10); EOSINOPHILS # (AUTO) 0.2 10^3/uL (0.0-0.3); EOSINOPHILS % (AUTO) 3 % (0-10); HEMATOCRIT 37 % (35-52); LYMPHOCYTES # (AUTO) 1.3 X 10^3 (1.0-4.0); LYMPHOCYTES % (AUTO) 25 % (12-44); MEAN CORPUSCULAR HEMOGLOBIN 25 PG (25-34); MEAN CORPUSCULAR HGB CONC 33 G/DL (32-36); MEAN CORPUSCULAR VOLUME 76 FL (80-99); MEAN PLATELET VOLUME 9.7 FL (7.4-10.4); MONOCYTES # (AUTO) 0.6 X 10^3 (0.0-1.0); MONOCYTES % (AUTO) 12 % (0-12); NEUTROPHILS # (AUTO) 3.3 X 10^3 (1.8-7.8); NEUTROPHILS % (AUTO) 61 % (42-75); PLATELET COUNT 313 10^3/uL (130-400); RED BLOOD COUNT 4.81 10^6/uL (4.35-5.85); RED CELL DISTRIBUTION WIDTH 16.7 % (10.0-14.5); WHITE BLOOD COUNT 5.5 10^3/uL (4.3-11.0)
[2017-07-14 11:40] LABS: ALANINE AMINOTRANSFERASE 12 U/L (0-55); ALBUMIN 4.2 GM/DL (3.2-4.5); ALKALINE PHOSPHATASE 147 U/L (40-136); BILIRUBIN,TOTAL 0.7 MG/DL (0.1-1.0); BUN/CREATININE RATIO 27; CARBON DIOXIDE 20 MMOL/L (21-32); CHLORIDE 107 MMOL/L (98-107); GFR ESTIMATED > 60; GLUCOSE 97 MG/DL (70-105); POTASSIUM 3.8 MMOL/L (3.6-5.0); SODIUM 139 MMOL/L (135-145); TOTAL PROTEIN 7.3 GM/DL (6.4-8.2)
--- NOTE | 2017-07-14 11:56 | Diagnostic Imaging Report ---
INDICATION: Lung cancer, followup. TIME OF EXAM: 10:44 AM COMPARISON: Correlation is made with prior chest from 01/12/2017. FINDINGS: The heart size is stable. The lungs appear clear. The pulmonary vascularity is normal. No infiltrate, effusion or pneumothorax is seen. Lower thoracic kyphoplasty changes are again noted. IMPRESSION: Stable chest. No acute feature is detected. Dictated by: Dictated on workstation # [id number]
== END 2017-08-17 | disposition home or self-care (01) ==
LOC: ONC 10:21
PROVIDERS: ATTEND Internal Medicine Hematology & Oncology
DX: C34.31 Malignant neoplasm of lower lobe, right bronchus or lung (principal); C78.01 Secondary malignant neoplasm of right lung; C78.02 Secondary malignant neoplasm of left lung; R53.83 Other fatigue; F41.9 Anxiety disorder, unspecified; F32.9 Major depressive disorder, single episode, unspecified; K21.9 Gastro-esophageal reflux disease without esophagitis; K59.00 Constipation, unspecified; R21 Rash and other nonspecific skin eruption; N39.3 Stress incontinence (female) (male); Z79.899 Other long term (current) drug therapy; C34.81 Malignant neoplasm of overlapping sites of right bronchus and lung
CPT/HCPCS: 36415; 71046; 80053; 85025; 99213

== ENCOUNTER → 2017-08-14 | Outpatient (CLI) | payer MEDICARE, OTHER ==
[~2017-08-14] MED LIST changes: +IOHEXOL 350 MG/ML 100 ML (OMNIPAQUE 350) VIAL IV ONE; +NS 250 ML (IVPB) BAG IV ONE
[2017-08-14 08:26] LABS: HEMOGLOBIN 11.9 G/DL (11.5-16.0); MEAN PLATELET VOLUME 9.4 FL (7.4-10.4); RED BLOOD COUNT 4.77 10^6/uL (4.35-5.85); RED CELL DISTRIBUTION WIDTH 16.8 % (10.0-14.5); WHITE BLOOD COUNT 4.7 10^3/uL (4.3-11.0)
[2017-08-14 08:51] LABS: ALANINE AMINOTRANSFERASE 13 U/L (0-55); ALBUMIN 4.2 GM/DL (3.2-4.5); ALKALINE PHOSPHATASE 137 U/L (40-136); BILIRUBIN,TOTAL 0.6 MG/DL (0.1-1.0); BUN/CREATININE RATIO 24; CALCIUM 8.9 MG/DL (8.5-10.1); CARBON DIOXIDE 22 MMOL/L (21-32); CHLORIDE 108 MMOL/L (98-107); CREATININE SERUM 0.71 MG/DL (0.60-1.30); GFR ESTIMATED > 60; GLUCOSE 98 MG/DL (70-105); POTASSIUM 4.1 MMOL/L (3.6-5.0); SODIUM 141 MMOL/L (135-145); TOTAL PROTEIN 6.9 GM/DL (6.4-8.2)
--- NOTE | 2017-08-14 09:41 | Diagnostic Imaging Report ---
PROCEDURE: CT abdomen and pelvis with contrast. TECHNIQUE: Multiple contiguous axial images were obtained through the abdomen and pelvis after administration of intravenous contrast. INDICATION: Left lower quadrant pain. COMPARISON: Comparison is made with prior exam from 02/16/2017. FINDINGS: Imaging through the lung bases demonstrates minimal subsegmental atelectasis or scarring in the right lower lobe. No discrete liver mass is identified. The gallbladder is surgically absent. Pancreas and spleen are unremarkable. No adrenal mass is identified. The kidneys are unremarkable. The aorta is non-aneurysmal. The small and large bowel loops are normal caliber. No obstruction is identified. There is mild sigmoid diverticulosis but no evidence of acute diverticulitis. There is no ascites. The bladder is unremarkable. No central retroperitoneal or mesenteric lymphadenopathy is seen. The pelvis is unremarkable. Bony structures demonstrate post-kyphoplasty changes at the T11 and T12 levels. IMPRESSION: Essentially unremarkable CT of the abdomen and pelvis. No acute features detected. There is sigmoid diverticulosis without evidence of acute diverticulitis. Dictated by: Dictated on workstation # [id number]
== END ==
LOC: RAD 08:11
PROVIDERS: ATTEND Surgery
DX: K57.30 Diverticulosis of large intestine without perforation or abscess without bleeding (principal); Z90.49 Acquired absence of other specified parts of digestive tract
CPT/HCPCS: 36415; 74177; 80053; 85027

== ENCOUNTER → 2017-08-30 | Outpatient (CLI) | payer MEDICARE, OTHER ==
[~2017-08-30] MED LIST changes: +CATHETER FLUSH 10 ML SYR IV PRN
--- NOTE | 2017-08-30 10:19 | Diagnostic Imaging Report ---
PROCEDURE: CT chest with contrast only. TECHNIQUE: Multiple contiguous axial images were obtained through the chest after administration of intravenous contrast. INDICATION: Lung cancer. FINDINGS: The previous CT chest exam performed on 02/16/2017 failed to show any sign of neoplastic disease or acute abnormality. On this study, the lungs remain clear. There is still no sign of failure, pneumonia or pleural effusion to suggest an acute abnormality. There is no parenchymal mass identified either. The heart is stable in size. The aorta is not abnormally dilated and there is no sign of a dissection. There is no defect within the pulmonary arteries to indicate a pulmonary embolus. There is no mediastinal or hilar adenopathy. Thyroid gland is unremarkable. There is no obvious breast mass. According to our records, the patient has not had a recent (within the last year) mammogram. If patient has had a recent mammogram elsewhere than no further imaging will be necessary. If the patient has not had a recent mammogram, then mammography would be recommended for further evaluation. The sections through the upper abdomen failed to show any sign of acute abnormality. The bone windows are unremarkable for fracture or for destructive lesion. The post kyphoplasty changes involving T11-T12 seen previously are again evident. IMPRESSION: 1. There is no evidence for an acute cardiopulmonary abnormality. There is no sign of a mass lesion to suggest neoplastic disease either. 2. There is no obvious breast mass. Recommendations as above. Dictated by: Dictated on workstation # [id number]
== END ==
LOC: RAD 08:53
PROVIDERS: ATTEND Internal Medicine Hematology & Oncology
DX: C34.31 Malignant neoplasm of lower lobe, right bronchus or lung (principal)
CPT/HCPCS: 71260

== ENCOUNTER → 2017-09-27 | Outpatient (CLI) | payer MEDICARE, OTHER ==
[~2017-09-27] MED LIST changes: -CATHETER FLUSH 10 ML SYR IV PRN; -IOHEXOL 350 MG/ML 100 ML (OMNIPAQUE 350) VIAL IV ONE; -NS 250 ML (IVPB) BAG IV ONE
--- NOTE | 2017-09-27 09:25 | Diagnostic Imaging Report ---
PROCEDURE: US Thyroid. TECHNIQUE: Multiple real-time grayscale images were obtained of the thyroid in various projections. INDICATION: Thyroid nodules. Study is performed for followup. Correlation is made with prior ultrasound from 08/31/2015. The right lobe of the thyroid measures 3.7 x 1.5 x 1.2 cm and the left lobe measures 3.7 x 1.2 x 1.7 cm. Previously noted circumscribed hypoechoic nodule in the lower pole right lobe is again noted measuring 5 mm x 5 mm x 8 mm, stable when compared with prior exam. No new thyroid mass is identified. IMPRESSION: Stable thyroid ultrasound when compared with examination from 08/31/2015. Dictated by: Dictated on workstation # [id number]
== END ==
LOC: RAD 07:47
PROVIDERS: ATTEND Internal Medicine
DX: E04.2 Nontoxic multinodular goiter (principal)
CPT/HCPCS: 76536

== ENCOUNTER → 2017-11-20 | Outpatient (CLI) | payer MEDICARE, OTHER ==
--- NOTE | 2017-11-20 16:56 | Diagnostic Imaging Report ---
PROCEDURE: MRI left joint lower extremity without contrast. TECHNIQUE: Multiplanar, multisequence non contrast-enhanced MRI of the left lower extremity was accomplished. INDICATION: Pain. FINDINGS: There is diffuse edema in the distal talus. There is an elliptical defect in the distal talus likely subchondral fracture or possibly osteochondral lesion. This does appear to fill in with fluid. There is diffuse soft tissue edema about the ankle. Talar dome and plafonds are intact. Distal fibula is intact. Calcaneus is unremarkable. Cuboid, tarsal navicular and cuneiforms are unremarkable. Achilles tendon is normal in appearance. Plantar fascia is unremarkable. IMPRESSION: Focal osteochondral fracture in the distal talus with diffuse marrow edema in the distal 50% of the talus. There is some overlying soft tissue edema and swelling as well. No other internal derangement of the ankle. Dictated by: Dictated on workstation # [id number]
== END ==
LOC: RAD 12:05
PROVIDERS: ATTEND Podiatrist
DX: M84.372A Stress fracture, left ankle, initial encounter for fracture (principal)
CPT/HCPCS: 73721

== ENCOUNTER → 2017-11-22 | Outpatient (CLI) | payer MEDICARE, OTHER ==
--- NOTE | 2017-11-22 12:46 | Diagnostic Imaging Report ---
PROCEDURE: MRI lumbar spine. TECHNIQUE: Multiplanar, multisequence MRI of the lumbar spine was performed without contrast. INDICATION: Back pain. FINDINGS: The previous MRI lumbar spine exam performed on 08/31/2010 noted a mild compression deformity of the superior endplate of T12 as well as a nonacute T11 inferior endplate compression. In the interval since the prior exam, the patient has undergone kyphoplasty procedure of both T11 and T12. The kyphoplasty cement appears to be in good position. On the T1 series of this exam, there are vague areas of diminished signal involving the inferior and anterior inferior endplate of L2, the anterior superior endplate of L3, and the anterior superior endplate of L4. There is also a very small area of slightly diminished signal involving the anterior inferior endplate of L5. There are corresponding areas of slight increased signal on the T2 fat-saturated series. These findings may be related to mild subacute compression deformities of L2, L3, and L4. It would be less likely that these are chronic in nature. If further imaging is desired, then a nuclear medicine bone scan would be recommended. There is no other abnormal signal arising from the osseous structures. The previous study did reveal degenerative disc disease throughout the lumbar spine including mild central stenosis at L4-L5. On this exam, the degenerative disc disease at the L4-L5 level does not appear to have progressed. There is a disc bulge centrally at this level which narrows the AP diameter of the thecal sac to 10.7 mm as opposed to 10.8 mm on the previous study. There is moderate narrowing of the neural foramina bilaterally. This may be slightly worse than on the prior study. In the interval since the prior study, a mild disc bulge has developed at the L3-L4 level. The disc indents the ventral aspect of the thecal sac and narrows the AP diameter to 9.5 mm. On the prior exam, the AP diameter of the thecal sac at this level measured 12.6 mm. There is also narrowing of the neural foramina bilaterally at this level. The neuroforaminal narrowing is somewhat more pronounced than on the prior exam as well. The remainder of the lumbar spine is unremarkable for spinal stenosis or any significant neuroforaminal narrowing. There is no abnormality involving the cord. The central canal is somewhat more prominent than on the prior study. The reason for this is not certain. There is no paraspinal mass visualized. IMPRESSION: 1. In the interval since the prior exam, the patient has undergone a kyphoplasty procedure of T11 and T12. The kyphoplasty cement appears to be in good position and there is no acute abnormality of T11 or T12. 2. The areas of altered signal involving L2, L3, L4, and L5 are of uncertain etiology. Considerations and recommendations as above. 3. The degenerative disc and bony disease at L4-L5 noted on the prior exam has not progressed; however, there is now borderline central stenosis at L3-L4 with moderate narrowing of the neural foramina bilaterally at this level. 4. No new area of spinal stenosis or nerve root encroachment has developed otherwise. Dictated by: Dictated on workstation # [id number]
== END ==
LOC: RAD 10:25
PROVIDERS: ATTEND Internal Medicine
DX: M51.36 Other intervertebral disc degeneration, lumbar region (principal); M99.73 Connective tissue and disc stenosis of intervertebral foramina of lumbar region
CPT/HCPCS: 72148

== ENCOUNTER 2017-11-27 08:55 | Outpatient (RCR) | payer MEDICARE, OTHER ==
[2017-08-30 08:55] LABS: BASOPHILS % (AUTO) 1 % (0-10); EOSINOPHILS # (AUTO) 0.2 10^3/uL (0.0-0.3); EOSINOPHILS % (AUTO) 4 % (0-10); HEMATOCRIT 38 % (35-52); HEMOGLOBIN 12.3 G/DL (11.5-16.0); LYMPHOCYTES # (AUTO) 1.3 X 10^3 (1.0-4.0); LYMPHOCYTES % (AUTO) 24 % (12-44); MEAN CORPUSCULAR HEMOGLOBIN 25 PG (25-34); MEAN CORPUSCULAR HGB CONC 33 G/DL (32-36); MEAN CORPUSCULAR VOLUME 77 FL (80-99); MEAN PLATELET VOLUME 9.7 FL (7.4-10.4); MONOCYTES # (AUTO) 0.5 X 10^3 (0.0-1.0); MONOCYTES % (AUTO) 10 % (0-12); NEUTROPHILS # (AUTO) 3.2 X 10^3 (1.8-7.8); NEUTROPHILS % (AUTO) 61 % (42-75); PLATELET COUNT 332 10^3/uL (130-400); RED BLOOD COUNT 4.95 10^6/uL (4.35-5.85); RED CELL DISTRIBUTION WIDTH 17.6 % (10.0-14.5); WHITE BLOOD COUNT 5.2 10^3/uL (4.3-11.0)
[2017-08-30 09:10] LABS: ALANINE AMINOTRANSFERASE 14 U/L (0-55); ALBUMIN 4.4 GM/DL (3.2-4.5); ALKALINE PHOSPHATASE 147 U/L (40-136); BILIRUBIN,TOTAL 0.6 MG/DL (0.1-1.0); BUN/CREATININE RATIO 18; CALCIUM 9.1 MG/DL (8.5-10.1); CARBON DIOXIDE 22 MMOL/L (21-32); CHLORIDE 108 MMOL/L (98-107); CREATININE SERUM 0.78 MG/DL (0.60-1.30); GFR ESTIMATED > 60; GLUCOSE 103 MG/DL (70-105); POTASSIUM 4.3 MMOL/L (3.6-5.0); SODIUM 139 MMOL/L (135-145); TOTAL PROTEIN 7.3 GM/DL (6.4-8.2)
[~2017-11-27 08:55] MED LIST changes: +FERRIC CARBOXYMALTOSE (CANCER) 750 MG in NS (IVPB) CANCER CENTER 250 ML IV SCH
[2017-11-27 09:14] LABS: BASOPHILS % (AUTO) 1 % (0-10); EOSINOPHILS # (AUTO) 0.2 10^3/uL (0.0-0.3); EOSINOPHILS % (AUTO) 4 % (0-10); HEMATOCRIT 43 % (35-52); HEMOGLOBIN 14.5 G/DL (11.5-16.0); LYMPHOCYTES # (AUTO) 1.2 X 10^3 (1.0-4.0); LYMPHOCYTES % (AUTO) 24 % (12-44); MEAN CORPUSCULAR HEMOGLOBIN 29 PG (25-34); MEAN CORPUSCULAR HGB CONC 34 G/DL (32-36); MEAN CORPUSCULAR VOLUME 85 FL (80-99); MEAN PLATELET VOLUME 9.4 FL (7.4-10.4); MONOCYTES # (AUTO) 0.5 X 10^3 (0.0-1.0); MONOCYTES % (AUTO) 10 % (0-12); NEUTROPHILS # (AUTO) 3.1 X 10^3 (1.8-7.8); NEUTROPHILS % (AUTO) 61 % (42-75); PLATELET COUNT 258 10^3/uL (130-400); RED BLOOD COUNT 5.06 10^6/uL (4.35-5.85); RED CELL DISTRIBUTION WIDTH 19.9 % (10.0-14.5)
[2017-11-27 09:39] LABS: ALANINE AMINOTRANSFERASE 16 U/L (0-55); ALBUMIN 4.4 GM/DL (3.2-4.5); ALKALINE PHOSPHATASE 269 U/L (40-136); BILIRUBIN,TOTAL 0.8 MG/DL (0.1-1.0); BUN/CREATININE RATIO 20; CALCIUM 9.2 MG/DL (8.5-10.1); CARBON DIOXIDE 20 MMOL/L (21-32); CHLORIDE 109 MMOL/L (98-107); CREATININE SERUM 0.69 MG/DL (0.60-1.30); GFR ESTIMATED > 60; GLUCOSE 106 MG/DL (70-105); POTASSIUM 3.8 MMOL/L (3.6-5.0); SODIUM 140 MMOL/L (135-145); TOTAL PROTEIN 7.2 GM/DL (6.4-8.2)
== END 2017-11-28 | disposition home or self-care (01) ==
LOC: ONC 08:55
PROVIDERS: ATTEND Internal Medicine Hematology & Oncology
DX: C34.31 Malignant neoplasm of lower lobe, right bronchus or lung (principal); C78.01 Secondary malignant neoplasm of right lung; C78.02 Secondary malignant neoplasm of left lung; E61.1 Iron deficiency; K90.49 Malabsorption due to intolerance, not elsewhere classified; R53.83 Other fatigue; F41.9 Anxiety disorder, unspecified; F32.9 Major depressive disorder, single episode, unspecified; K21.9 Gastro-esophageal reflux disease without esophagitis; R21 Rash and other nonspecific skin eruption; N39.3 Stress incontinence (female) (male); Z79.899 Other long term (current) drug therapy
CPT/HCPCS: 36415; 80053; 82728; 83540; 85025; 96365; 99213

== ENCOUNTER → 2017-12-18 | Outpatient (CLI) | payer MEDICARE, OTHER ==
[~2017-12-18] MED LIST changes: -FERRIC CARBOXYMALTOSE (CANCER) 750 MG in NS (IVPB) CANCER CENTER 250 ML IV SCH; +GADOBUTROL 10 MMOL/10 ML (GADAVIST) VIAL IV ONE
--- NOTE | 2017-12-18 14:32 | Diagnostic Imaging Report ---
PROCEDURE: MRI lumbar spine with and without contrast. TECHNIQUE: Multiplanar, multisequence MRI of the lumbar spine was performed with and without contrast. INDICATION: Lung cancer, pain. COMPARISON: Study is correlated with a CT performed on 12/14/2017 and also compared with nonenhanced MRI lumbar spine performed on 11/22/2017. FINDINGS: T11 and T12 kyphoplasty cement treats stable compression deformities of those levels without marrow edema or evidence for progressive stature loss. Lumbar statures are within normal limits. Some mild heterogeneity of the lumbar marrow signal intensity, probably reflective of combination of osteopenia as well as secondary arthritic change. No geographic lumbar marrow lesion is found and no abnormal lumbar enhancement following the administration of IV contrast is evident. There is however abnormal marrow signal intensity T2 hyper and T1 hypointense involving the partially visualized sacral ala, left more so than right. This is below the smywi-[id number] on the axial images and is only identified on the parasagittal sequences. These areas do show moderate enhancement following IV contrast, consistent with an active process. When the CT is reviewed, I cannot identify convincing evidence for lucent fracture line however there is some questionable sclerosis in the left sacral ala paralleling the left SI joint. We note that on a bone scan performed from an outside facility on 12/04/2017 at [facility], there was abnormal left greater than right uptake in the sacral ala as well as some mild degenerative lumbar endplate uptake. Findings in the sacral ala, left more so than right, are most suggestive of healing insufficiency-type fractures. Bilateral sacral alar bony metastatic disease would be felt less likely. As this area is only partially visualized and on a limited basis at today's study, pre and post contrast-enhanced MRI through the sacrococcygeal spine recommended. That would be useful particularly if treatment such as sacroplasty would be considered in a patient with painful recent sacral insufficiency fractures as well as to allow us to more confidently exclude the less likely consideration for metastatic disease accounting for these abnormalities. The lumbar alignment is anatomic. There was no paravertebral mass, hemorrhage, or fluid collection. The conus appeared normal. There is normal dispersal of the nerves of the cauda equina and there is no acute intrathecal abnormality. No high-grade lumbar canal, foraminal, or recess stenoses. [id number] lumbar spondylosis is stable and mild. IMPRESSION: 1. The lumbar spine appears nonacute. There are stable, chronic, treated lower thoracic compression fractures. 2. There is however marrow edema and likely an active process involving the patient's left greater than right sacral ala, most suggestive of but inconclusive for sacral insufficiency-type fractures. As this benign diagnosis cannot be confirmed upon review of recent CT, I would suggest a dedicated sacrococcygeal pre and post contrast-enhanced MRI as further evaluation. Dictated by: Dictated on workstation # [id number]
== END ==
LOC: RAD 11:37
PROVIDERS: ATTEND Internal Medicine Hematology & Oncology
DX: C34.31 Malignant neoplasm of lower lobe, right bronchus or lung (principal); M54.5 Low back pain
CPT/HCPCS: 72158

== ENCOUNTER 2018-02-14 10:21 | Outpatient (RCR) | payer MEDICARE, OTHER ==
[~2018-02-14 10:21] MED LIST changes: -GADOBUTROL 10 MMOL/10 ML (GADAVIST) VIAL IV ONE
== END 2018-02-16 | disposition home or self-care (01) ==
LOC: ONC 10:21
PROVIDERS: ATTEND Internal Medicine Hematology & Oncology
DX: C34.31 Malignant neoplasm of lower lobe, right bronchus or lung (principal); C78.01 Secondary malignant neoplasm of right lung; C78.02 Secondary malignant neoplasm of left lung; R53.83 Other fatigue; F41.9 Anxiety disorder, unspecified; F32.9 Major depressive disorder, single episode, unspecified; K21.9 Gastro-esophageal reflux disease without esophagitis; K59.00 Constipation, unspecified; R21 Rash and other nonspecific skin eruption; N39.3 Stress incontinence (female) (male); Z79.899 Other long term (current) drug therapy
CPT/HCPCS: 99213

== ENCOUNTER 2018-04-03 09:57 | Outpatient (CLI) | payer MEDICARE, OTHER ==
[~2018-04-03] VITALS: Ht 154.9 cm; Wt 77.6 kg
[2018-04-03] MEDS ORDERED: CYAN100092 IJ (10:29)
[2018-04-03] MEDS ORDERED: CHOL500049 PO (10:29)
[2018-04-03] MEDS ORDERED: BUSP15TA60 PO (11:04)
[2018-04-04] MEDS ORDERED: SUCR1TAB36 PO (13:22)
== END 2018-04-03 11:05 | disposition home or self-care (01) ==
LOC: PREOP 09:57
PROVIDERS: ATTEND Surgery
DX: Z01.818 Encounter for other preprocedural examination (principal)

== ENCOUNTER 2018-04-04 11:46 | Day surgery (SDC) | payer MEDICARE, OTHER ==
[~2018-04-04] VITALS: Ht 154.9 cm; Wt 77.6 kg
[~2018-04-04 11:46] MED LIST changes: +CHOL500049 PO; +CYAN100092 IJ
[2018-04-04] MEDS ORDERED: LIDOCAINE JELLY 2% 6 ML SYRINGE MM PRN (12:00)
[2018-04-04] MEDS ORDERED: HURRICAINE EXT TUBE (BENZOCAINE) XX PRN (12:00)
[2018-04-04] MEDS ORDERED: LACTATED RINGERS 1,000 ML IV PRN (12:00)
--- NOTE | 2018-04-04 12:10 | Conscious Sedation/ASA ---
Conscious Sedation Pre-Proced Time 11:30 ASA Score 3 For ASA 3 and 4: Consider anesthesia and medical clearance. Also, for patients with a history of failed moderate sedation consider anesthesia. Airway Lungs Heart ASA score ASA 1: a normal healthy patient ASA 2: a patient with a mild systemic disease (mid diabetes, controlled hypertension, obesity ASA 3: a patient with a severe systemic disease that limits activity (angina , COPD, prior Myocardial infarction) ASA 4: a patient with an incapacitating disease that is a constant threat to life (CHF, renal failure) ASA 5: a moribund patient not expected to survive 24 hrs. (ruptured aneurysm) ASA 6: a declared brain patient whose organs are being harvested. For emergent operations, add the letter E after the classification Mallampati Classification Grade 2 Sedation Plan Analgesia, Amnesia, Plan communicated to team members, Discussed options with patient/fam, Discussed risks with patient/fam The patient is an appropriate candidate to undergo the planned procedure, sedation, and anesthesia. The patient immediately re-assessed prior to indication. ROZ ARNOLD MD Apr 04, 2018 12:10 pm
--- NOTE | 2018-04-04 12:10 | Progress Note-Pre Operative ---
Pre-Operative Progress Note H&P Reviewed The H&P was reviewed, patient examined and no changes noted. Date Seen by Provider: Apr 04, 2018 Time Seen by Provider: 11:30 Date H&P Reviewed: Apr 04, 2018 Time H&P Reviewed: 11:30 Pre-Operative Diagnosis: GERD, hx lung cancer ROZ ARNOLD MD Apr 04, 2018 12:10 pm
[2018-04-04] MEDS ORDERED: ONDANSETRON 4 MG/2 ML (SDV) Z0FRAN IV PRN (12:15)
[2018-04-04] MEDS ORDERED: ACETAMINOPHEN 325 MG TABLET PO PRN (12:15)
[2018-04-04] MEDS ORDERED: HYDROcodone/APAP 5 MG/325 MG (LORTAB) TAB PO PRN (12:15)
[2018-04-04] MEDS ORDERED: morphine INJ 10 MG/ML 1ML (SYR OR VIAL) IV PRN (12:15)
[2018-04-04] MEDS ORDERED: proPOfol 200 MG/20 ML (DIPRIVAN) VIAL IV ONE (12:34)
[2018-04-04] MEDS ORDERED: MIDAZOLAM 2 MG/2 ML (VERSED) VIAL ONE (12:34)
[2018-04-04] MEDS ORDERED: LIDOCAINE JELLY 2% 6 ML SYRINGE ONE (12:52)
[2018-04-04] MEDS ORDERED: HURRICAINE EXT TUBE (BENZOCAINE) ONE (12:52)
[2018-04-04 13:20] VITALS: BP 135/64
[2018-04-04 13:21] VITALS: BP 126/71
--- NOTE | 2018-04-04 13:21 | Progress Note-Post Operative ---
Post-Operative Progess Note Surgeon (s)/Education Assistant (s) Surgeon ROZ ARNOLD MD Education Assistant: none Pre-Operative Diagnosis GERD, hx lung cancer Post-Operative Diagnosis reflux esophagitis(stage 2), moderate 3cm HH. moderate gastritis. Procedure & Operative Findings Date of Procedure 04/04/18 Procedure Performed/Findings EGD with bx. Anesthesia Type MAC Estimated Blood Loss Estimated blood loss (mL): minimal Specimens/Packing Specimens Removed GE jxn, antrum ROZ ARNOLD MD Apr 04, 2018 1:21 pm
[2018-04-04] MEDS ORDERED: SUCR1TAB36 PO (13:22)
--- NOTE | 2018-04-04 13:23 | Discharge Inst-Surgical ---
D/C Lap Instructions-KIDO New, Converted, or Re-Newed RX: RX on Chart Follow Up Appt in 6 weeks Activity as tolerated High Fiber Diet 25g or more per day Avoid Alcohol, Caffeine, Spicy [place] and Acid foods. Drink 64 fluid oz or more of fluids per day. Symptoms to Report: Fever over 101 degree F, Nausea/Vomiting If any problems/questions: Contact your physician or go to Emergency Room ROZ ARNOLD MD Apr 04, 2018 1:23 pm
[2018-04-04 13:40] VITALS: BP 136/68
[2018-04-04 13:58] VITALS: BP 136/68
--- NOTE | 2018-04-04 14:16 | Anesthesia-General Post-Op ---
MAC Patient Condition Mental Status/LOC: Same as Preop Cardiovascular: Satisfactory Nausea/Vomiting: Absent Respiratory: Satisfactory Pain: Controlled Complications: Absent Post Op Complications Complications None Follow Up Care/Instructions Patient Instructions None needed. Anesthesiology Discharge Order Discharge Order Patient is doing well, no complaints, stable vital signs, no apparent adverse anesthesia problems. No complications reported per nursing. MINA ROSA CRNA Apr 04, 2018 14:16
--- NOTE | 2018-04-04 21:08 | OPERATIVE REPORT ---
DATE OF SERVICE: 04/04/2018 ATTENDING PRIMARY CARE PHYSICIAN: Dr. Mann. PREOPERATIVE DIAGNOSIS: Worsening gastroesophageal reflux disease with history of right lung cancer. POSTOPERATIVE DIAGNOSES: Reflux esophagitis stage II. Moderate sized hiatal hernia approximately 3 cm in size. Moderate gastritis. PROCEDURE: EGD with biopsy. SURGEON: Roz Arnold MD ANESTHESIA: Monitored anesthesia care. ESTIMATED BLOOD LOSS: Minimal. FINDINGS: Reflux esophagitis stage II with no ulcerations or strictures. Moderate sized hiatal hernia approximately 3 cm in size, moderate severity gastritis with no formal ulcerations, polyps or any neoplasms and no distal obstructions. DISPOSITION: The patient tolerated the procedure well. INDICATIONS: The patient is a 72-year-old female known to us. She has had multiple gastrointestinal issues for many years. She has had reflux, diarrhea and rectal bleeding. We have done previous colonoscopies as well as EGDs on her in the past. We did a formal hemorrhoidectomy in 2012 due to stage III symptomatic hemorrhoids. She has also undergone EGDs with the last one done in 2015, which showed a stage II reflux esophagitis, small hiatal hernia as well as a moderate gastritis. In the fall of 2014, she was diagnosed with lung cancer and did undergo a right thoracotomy and right lower lobe lobectomy in 02/2015. She is currently undergoing oral chemotherapy and followed by [facility] by oncology for this. She also did have an episode of rectal bleeding and she was started on mesalamine, which she states did help her symptoms. She then underwent a followup colonoscopy, which did not show any inflammatory changes. She reports in the past 6 weeks, she has had worsening epigastric burning sensation as well as crampy pain with radiation towards the back. DESCRIPTION OF PROCEDURE: The patient was brought to the endoscopy suite, laid in the left lateral decubitus position with head slightly elevated. After adequate IV pain and sedative medications and monitored anesthesia care, the mouthpiece was applied. Endoscope was placed in the mouth, visualizing the pharynx and hypopharyngeal region. Vocal cords, epiglottis and vallecula identified and appeared normal. The endoscope was then gently intubated in the esophageal opening and esophagus insufflated. The endoscope was then advanced through the first, second and third portions of the esophagus at the level of the GE junction. A reflux esophagitis stage II was identified with no ulcers or strictures identified. A biopsy was taken of the GE junction with forceps with visualization of good hemostasis. The endoscope was then advanced into the stomach and endoscope retroflexed, visualizing a moderate sized hiatal hernia approximately 3 cm in size. We feel that this is the most likely cause of her symptomatology. There was also a moderate severity gastritis; however, no formal ulcerations, polyps or any neoplasms. A biopsy was taken of the stomach antrum to rule out H. pylori with visualization of good hemostasis. The endoscope was then advanced to the pylorus into the first and second portion of the duodenum, which appeared normal with no distal obstructions. The patient tolerated the procedure well. We feel that the majority of her symptoms are due to reflux and hiatal hernia as well as acid hypersecretion. She is currently on Dexilant; however, is still symptomatic. We will add Carafate 1 gram q.i.d. for the next two weeks on a p.r.n. basis. She will also need to proceed with the necessary lifestyle and diet accommodation including small and more frequent meals, avoidance of eating at night as well as head elevation while lying supine. She does have a history of lung cancer with active disease and does not appear to be a surgical candidate at this time. We will continue with medical management at this time and continue to monitor her progress. Job ID: [id number] DocumentID: [id number] Dictated Date: 04/04/2018 13:21:04 Casing In Line Feeder Date: 04/04/2018 21:07:37 Dictated By: ROZ ARNOLD MD MTDD
== END 2018-04-04 13:45 | disposition home or self-care (01) ==
LOC: ENDO 11:46
PROVIDERS: ATTEND Surgery
DX: K21.0 Gastro-esophageal reflux disease with esophagitis (principal); K44.9 Diaphragmatic hernia without obstruction or gangrene; K29.70 Gastritis, unspecified, without bleeding; C34.91 Malignant neoplasm of unspecified part of right bronchus or lung; E03.9 Hypothyroidism, unspecified; Z79.899 Other long term (current) drug therapy; Z87.891 Personal history of nicotine dependence
CPT/HCPCS: 88305

== ENCOUNTER → 2018-04-13 | Outpatient (CLI) | payer MEDICARE, OTHER ==
--- NOTE | 2018-04-13 16:56 | Diagnostic Imaging Report ---
PROCEDURE: US Thyroid. TECHNIQUE: Multiple real-time grayscale images were obtained of the thyroid in various projections. INDICATION: Thyromegaly. FINDINGS: The previous thyroid ultrasound exam performed on 09/27/2017 noted that the thyroid gland was not enlarged but there was a circumscribed hypoechoic nodule in the lower pole of the right lobe measuring 5 x 5 x 8 mm. On this exam, that nodule is again identified and does measure slightly larger. It is now estimated to be 7 x 5 x 6 mm. Furthermore in the interval since the prior exam, a new solid-appearing nodule has developed in the midportion of the left lobe. This measures 7 x 4 x 5 mm. I suspect that these nodules are benign and as they are less than 1 cm in size, I doubt that they could be resolved by nuclear medicine thyroid imaging. I would recommend that a short-term (three month) followup ultrasound exam be performed for further study. The thyroid gland itself is not enlarged. The right lobe measures 3.3 x 1.2 x 1.5 cm while the left lobe is estimated to be 3.3 x 1.7 x 0.5 cm (normal gland size 4-5 x 2 x 2 cm or less). IMPRESSION: 1. The small nodule in the inferior pole of the right lobe seen previously is minimally larger on this exam. A new small nodule has also developed in the left lobe. These nodules are most likely benign. Even so, a short-term (three month) followup ultrasound exam would be recommended for continued evaluation. Dictated by: Dictated on workstation # [id number]
== END ==
LOC: RAD 12:13
PROVIDERS: ATTEND Internal Medicine
DX: E01.0 Iodine-deficiency related diffuse (endemic) goiter (principal)
CPT/HCPCS: 76536

== ENCOUNTER 2018-05-24 14:52 | Outpatient (CLI) | payer MEDICARE, OTHER ==
[~2018-05-24] VITALS: Ht 154.9 cm; Wt 81.2 kg
[2018-05-24 14:59] VITALS: BP 140/75
[2018-05-24] MEDS ORDERED: ESCI10TA PO (15:05)
[2018-05-24] MEDS ORDERED: LEVO50TA6 PO (15:05)
[2018-05-24] MEDS ORDERED: AFAT20TA PO (15:05)
[2018-05-24] MEDS ORDERED: ACYC400T PO (15:05)
[2018-05-24] MEDS ORDERED: POLY119P5 PO (15:05)
[2018-05-24] MEDS ORDERED: DEXL60CA PO (15:05)
== END 2018-05-24 15:15 | disposition home or self-care (01) ==
LOC: PREOP 14:52
PROVIDERS: ATTEND Obstetrics & Gynecology
DX: Z01.818 Encounter for other preprocedural examination (principal)
CPT/HCPCS: 87081

== ENCOUNTER 2018-05-29 08:45 | Day surgery (SDC) | payer MEDICARE, OTHER ==
[~2018-05-29] VITALS: Ht 154.9 cm; Wt 80.3 kg
[~2018-05-29 08:45] MED LIST changes: +ACYC400T PO; +DEXL60CA PO; +LEVO50TA6 PO; +POLY119P5 PO
[2018-05-29 09:00] VITALS: BP 133/63
[2018-05-29] MEDS ORDERED: FAMOTIDINE 20MG/2ML IV (PEPCID) IV ONE (09:30)
[2018-05-29] MEDS ORDERED: ceFAZolin INJECTION 1,000 MG in NS (IVPB) 50 ML IV ONE (09:30)
[2018-05-29] MEDS ORDERED: fentaNYL INJECTION 100 MCG/2 ML AMP ONE (09:31)
[2018-05-29] MEDS ORDERED: LIDOCAINE PF 2% 5 ML (XYLOCAINE) VIAL ONE (09:31)
[2018-05-29] MEDS ORDERED: ONDANSETRON 4 MG/2 ML (SDV) Z0FRAN ONE (09:31)
[2018-05-29] MEDS ORDERED: proPOfol 200 MG/20 ML (DIPRIVAN) VIAL IV ONE (09:31)
[2018-05-29] MEDS ORDERED: DEXAMETHASONE 10 MG/ML (DECADRON) 1 ML VIAL ONE (09:31)
[2018-05-29] MEDS ORDERED: SEVOFLURANE (ULTANE) 15 ML INHAL SOLN ONE (09:31)
[2018-05-29] MEDS ORDERED: VASOPRESSIN INJECTION 20 UNIT/ML VIAL ONE (09:36)
[2018-05-29] MEDS ORDERED: NS (IVPB) 100 ML ONE (09:36)
[2018-05-29] MEDS: LACTATED RINGERS 1,000 ML IV PRN ×2 (09:40→10:50)
--- NOTE | 2018-05-29 09:46 | Progress Note-Pre Operative ---
Pre-Operative Progress Note H&P Reviewed The H&P was reviewed, patient examined and no changes noted. Date Seen by Provider: May 29, 2018 Time Seen by Provider: 09:45 Date H&P Reviewed: May 29, 2018 Time H&P Reviewed: 09:45 Pre-Operative Diagnosis: cystocele, stress incontinence MABEL ROBERT DO May 29, 2018 09:46
[2018-05-29] MEDS ORDERED: ESTRADIOL VAGINAL CREAM 42.5 GM (ESTRACE) VG ONE (10:54)
--- NOTE | 2018-05-29 11:12 | Operative Report ---
Operative Report Date of Procedure/Surgery May 29, 2018 Surgeon (s) MABEL ROBERT DO Carton Marker Machine (s): NA Post-Operative Diagnosis cystocele Procedure Performed anterior colporrhaphy Description of Procedure Anesthesia Type: General Estimated blood loss (mL): 50 Specimen(s) collected/removed none Description of the Procedure With informed consent the patient was taken to the operating room where general anesthesia was found to be adequate. A Albert catheter was placed in the bladder. She was then prepped and draped in the usual sterile fashion. The previously repaired cystocele had recurred after previous cystocele raid. She also had previously had a Solyx pubovaginal sling. I was concerned that this felt as though one of the wings (the left side) had flipped. However, once she was asleep and relaxed, I could not feel the sling. Her urethra was well supported. There was no evidence of mesh visible or palpable. I injected the anterior vaginal epithelium with dilute Vasopressin. I then grasped in the midline with an Allis clamp and then made a midline incision with the scalpel. I then dissected the pubovaginal fascia off of the vaginal epithelium. I then repaired the midline defect with 2-0 Vicryl in mattress style interrupted sutures in two layers reducing the defect laterally to the white line. Then I did a Tiffanie plication under the urethra with the 2-0 Vicryl supporting the urethra. The excessive vaginal epithelium was now excised and the defect was closed with 2-0 Vicryl in a running fashion. The vagina was now irrigated with saline and then packed with a vaginal pack coated with Estrace cream. The patient was now awakened and taken to the recovery room in a stable condition. Sponge, lap, needle and instrument counts were correct times two. Findings of the Procedure 3-4 + cystocele with good support of the urethra Allergies and Home Medications Allergies Coded Allergies: No Known Drug Allergies (Unverified , 11/09/15) Home Medications Acyclovir 400 Mg Tablet, 400 MG PO DAILY PRN for mouth sores, (Reported) Afatinib Dimaleate 20 Mg Tablet, 20 MG PO DAILY, (Reported) Alprazolam 0.25 Mg Tablet, 0.25 MG PO BID, (Reported) Buspirone HCl 15 Mg Tablet, 15 MG PO BID, (Reported) Cetirizine HCl 10 Mg Tablet, 10 MG PO HS PRN for allergies, (Reported) Cyanocobalamin (Vitamin B-12) 1,000 Mcg/1 Ml Kit, 1,000 MCG IJ monthly, ( Reported) Dexlansoprazole 60 Mg , 60 MG PO DAILY, (Reported) Escitalopram Oxalate 10 Mg Tablet, 10 MG PO DAILY, (Reported) Hydrocodone Bit/Acetaminophen 1 Tab Tab, 2 TAB PO Q6H PRN for PAIN Prescribed by: MABEL ROBERT on 05/29/181226 Ibuprofen 600 Mg Tablet, 600 MG PO Q6H Prescribed by: MABEL ROBERT on 05/29/181226 Levothyroxine Sodium 50 Mcg Tablet, 50 MCG PO DAILY, (Reported) Lubiprostone 24 Mcg Capsule, 24 MCG PO BID, (Reported) Polyethylene Glycol 3350 119 Gm Powder, 17 GM PO DAILY, (Reported) Zolpidem Tartrate 10 Mg Tablet, 10 MG PO HS, (Reported) [Benzocaine/Menthol] 56 ML AEROSOL, 56 ML TP UD PRN for PAIN-MILD EXTERNAL USE ONLY Prescribed by: MABEL ROBERT on 05/29/187 Patient Home Medication List Home Medication List Reviewed: Yes MABEL ROBERT DO May 29, 2018 11:12 am
[2018-05-29] MEDS ORDERED: morphine INJ 10 MG/ML 1ML (SYR OR VIAL) ONE (11:16)
[2018-05-29] MEDS ORDERED: KETOROLAC 30 MG/ML VIAL ONE (11:16)
[2018-05-29] MEDS: KETOROLAC 15 MG/ML VIAL IVP SCH ×2 (11:20→17:02)
[2018-05-29] MEDS ORDERED: morphine INJ 10 MG/ML 1ML (SYR OR VIAL) IVP ONE (11:30)
[2018-05-29] MEDS ORDERED: HYDROmorphone 2 MG/ML VIAL (DILAUDID) IV ONE (11:30)
[2018-05-29] MEDS ORDERED: ONDANSETRON 4 MG/2 ML (SDV) Z0FRAN IVP PRN (11:30)
[2018-05-29] MEDS ORDERED: LACTATED RINGERS 1,000 ML IV SCH (12:18)
[2018-05-29 12:27] VITALS: BP 93/52
[2018-05-29] MEDS ORDERED: IBUP-844 PO (12:27)
[2018-05-29] MEDS ORDERED: ACHD5005 PO (12:27)
[2018-05-29] MEDS ORDERED: Benzocaine/Menthol TP (12:27)
--- NOTE | 2018-05-29 12:28 | Discharge Inst-Women's Service ---
Discharge Inst-Women's Serv Depart Medication/Instructions New, Converted or Re-Newed RX: RX on Chart Final Diagnosis recurrent cystocele Proc - cystocele repair/anterior colporrhaphy Consults/Follow Up Additional Follow Up: Yes (2 weeks with Shea Gomez and 6 weeks with [facility]) Activity Activity: Activity as Tolerated Driving Instructions: No Driving for 24 Hours NO SMOKING: NO SMOKING Nothing Inside Vagina: No Douching, No [place], No Tampons Diet Discharge Diet: No Restrictions Symptoms to Report to : Bleeding Excessive, Pain Increased, Fever Over 101 Degrees F, Urination Difficulty, Cramps in Feet or Legs, Vaginal Discharge Foul For Any Problems or Questions: Contact Your Physician Skin/Wound Care Bathing Instructions: MABEL Gallegos DO May 29, 2018 12:28
[2018-05-29] MEDS ORDERED: HYDROcodone/APAP 5 MG/325 MG (LORTAB) TAB PO PRN (12:30)
[2018-05-29] MEDS ORDERED: morphine INJ 10 MG/ML 1ML (SYR OR VIAL) IV PRN (12:30)
[2018-05-29] MEDS ORDERED: BENZOCAINE/MENTHOL (DERMOPLAST) 56 ML CAN TP PRN (12:30)
[2018-05-29 16:50] VITALS: BP 116/62
[2018-05-30] MEDS ORDERED: IBUPROFEN 600 MG (MOTRIN) TAB PO SCH (08:00)
[2018-05-30] MEDS ORDERED: DOCUSATE SODIUM 100 MG (COLACE) CAP PO SCH (09:00)
--- NOTE | 2018-05-30 14:03 | Anesthesia-General Post-Op ---
General Patient Condition Mental Status/LOC: Same as Preop Cardiovascular: Satisfactory Nausea/Vomiting: Absent Respiratory: Satisfactory Pain: Controlled Complications: Absent Post Op Complications Complications None Follow Up Care/Instructions Patient Instructions None needed. Anesthesia/Patient Condition Patient Condition Patient is already discharged to home. No complications noted per nursing staff. JULY HOUSER DO May 30, 2018 14:03
== END 2018-05-29 18:23 | disposition home or self-care (01) ==
LOC: SDC 08:45 → WS 12:10 → SDC 18:23
PROVIDERS: ATTEND Obstetrics & Gynecology
DX: N81.11 Cystocele, midline (principal); R39.14 Feeling of incomplete bladder emptying; E03.9 Hypothyroidism, unspecified; K21.9 Gastro-esophageal reflux disease without esophagitis; F41.9 Anxiety disorder, unspecified; Z85.118 Personal history of other malignant neoplasm of bronchus and lung; Z79.899 Other long term (current) drug therapy; Z87.891 Personal history of nicotine dependence
CPT/HCPCS: 94664

== ENCOUNTER 2018-06-20 12:57 | Outpatient (RCR) | payer MEDICARE, OTHER ==
[2018-04-17 13:05] LABS: BASOPHILS % (AUTO) 1 % (0-10); EOSINOPHILS # (AUTO) 0.2 10^3/uL (0.0-0.3); EOSINOPHILS % (AUTO) 4 % (0-10); HEMATOCRIT 42 % (35-52); HEMOGLOBIN 14.2 G/DL (11.5-16.0); LYMPHOCYTES # (AUTO) 1.4 X 10^3 (1.0-4.0); LYMPHOCYTES % (AUTO) 25 % (12-44); MEAN CORPUSCULAR HEMOGLOBIN 30 PG (25-34); MEAN CORPUSCULAR HGB CONC 34 G/DL (32-36); MEAN CORPUSCULAR VOLUME 89 FL (80-99); MEAN PLATELET VOLUME 9.7 FL (7.4-10.4); MONOCYTES # (AUTO) 0.6 X 10^3 (0.0-1.0); MONOCYTES % (AUTO) 10 % (0-12); NEUTROPHILS # (AUTO) 3.5 X 10^3 (1.8-7.8); NEUTROPHILS % (AUTO) 61 % (42-75); PLATELET COUNT 231 10^3/uL (130-400); RED CELL DISTRIBUTION WIDTH 14.3 % (10.0-14.5); WHITE BLOOD COUNT 5.8 10^3/uL (4.3-11.0)
[2018-04-17 13:23] LABS: ALANINE AMINOTRANSFERASE 14 U/L (0-55); ALBUMIN 4.4 GM/DL (3.2-4.5); ALKALINE PHOSPHATASE 129 U/L (40-136); BILIRUBIN,TOTAL 0.6 MG/DL (0.1-1.0); BUN/CREATININE RATIO 22; CALCIUM 9.4 MG/DL (8.5-10.1); CARBON DIOXIDE 23 MMOL/L (21-32); CHLORIDE 105 MMOL/L (98-107); CREATININE SERUM 0.72 MG/DL (0.60-1.30); GFR ESTIMATED > 60; GLUCOSE 85 MG/DL (70-105); SODIUM 138 MMOL/L (135-145); TOTAL PROTEIN 7.4 GM/DL (6.4-8.2)
[~2018-06-20 12:57] MED LIST changes: +Benzocaine/Menthol TP; +IBUP-844 PO
[2018-06-20 13:11] LABS: BASOPHILS % (AUTO) 0 % (0-10); EOSINOPHILS # (AUTO) 0.2 10^3/uL (0.0-0.3); EOSINOPHILS % (AUTO) 3 % (0-10); HEMATOCRIT 42 % (35-52); LYMPHOCYTES # (AUTO) 1.6 X 10^3 (1.0-4.0); LYMPHOCYTES % (AUTO) 20 % (12-44); MEAN CORPUSCULAR HEMOGLOBIN 29 PG (25-34); MEAN CORPUSCULAR HGB CONC 33 G/DL (32-36); MEAN CORPUSCULAR VOLUME 89 FL (80-99); MEAN PLATELET VOLUME 9.6 FL (7.4-10.4); MONOCYTES # (AUTO) 0.9 X 10^3 (0.0-1.0); MONOCYTES % (AUTO) 11 % (0-12); NEUTROPHILS % (AUTO) 65 % (42-75); PLATELET COUNT 267 10^3/uL (130-400); RED CELL DISTRIBUTION WIDTH 14.9 % (10.0-14.5); WHITE BLOOD COUNT 7.7 10^3/uL (4.3-11.0)
[2018-06-20 13:37] LABS: ALANINE AMINOTRANSFERASE 18 U/L (0-55); ALBUMIN 4.3 GM/DL (3.2-4.5); ALKALINE PHOSPHATASE 141 U/L (40-136); BILIRUBIN,TOTAL 0.6 MG/DL (0.1-1.0); BUN/CREATININE RATIO 21; CALCIUM 8.8 MG/DL (8.5-10.1); CARBON DIOXIDE 24 MMOL/L (21-32); CHLORIDE 104 MMOL/L (98-107); CREATININE SERUM 0.76 MG/DL (0.60-1.30); GFR ESTIMATED > 60; GLUCOSE 112 MG/DL (70-105); POTASSIUM 3.9 MMOL/L (3.6-5.0); SODIUM 138 MMOL/L (135-145); TOTAL PROTEIN 7.2 GM/DL (6.4-8.2)
== END 2018-07-16 | disposition home or self-care (01) ==
LOC: ONC 12:57
PROVIDERS: ATTEND Internal Medicine Hematology & Oncology
DX: C34.31 Malignant neoplasm of lower lobe, right bronchus or lung (principal); C78.01 Secondary malignant neoplasm of right lung; C78.02 Secondary malignant neoplasm of left lung; R53.83 Other fatigue; F41.9 Anxiety disorder, unspecified; F32.9 Major depressive disorder, single episode, unspecified; K21.9 Gastro-esophageal reflux disease without esophagitis; K59.00 Constipation, unspecified; R21 Rash and other nonspecific skin eruption; N39.3 Stress incontinence (female) (male); Z79.899 Other long term (current) drug therapy
CPT/HCPCS: 36415; 80053; 85025; 99213

== ENCOUNTER → 2018-08-14 | Outpatient (CLI) | payer MEDICARE, OTHER ==
--- NOTE | 2018-08-14 13:28 | Diagnostic Imaging Report ---
Indication: Lung cancer. Comparison made with prior examination of 07/14/2017. Findings: Heart size normal. Mediastinum is unremarkable. No pleural effusion, pneumothorax or pneumonia. Impression: No acute cardiopulmonary abnormality. Dictated by: Dictated on workstation # [id number]
== END ==
LOC: RAD 06-20 13:08
PROVIDERS: ATTEND Nurse Practitioner Adult Health
DX: C34.91 Malignant neoplasm of unspecified part of right bronchus or lung (principal)
CPT/HCPCS: 71046

== ENCOUNTER → 2018-10-12 | Outpatient (CLI) | payer MEDICARE, OTHER ==
[~2018-10-12] MED LIST changes: +CATHETER FLUSH 10 ML SYR IV PRN
--- NOTE | 2018-10-12 13:05 | Diagnostic Imaging Report ---
PROCEDURE: CT chest with contrast, CT abdomen with and without contrast. TECHNIQUE: Precontrast acquisitions were acquired through the abdomen. Multiple contiguous axial images were obtained through the chest and abdomen after administration of intravenous contrast. Auto Exposure Controls were utilized during the CT exam to meet ALARA standards for radiation dose reduction. INDICATION: Lung cancer Comparison made to study from 12/14/2017. Lungs appear clear. There are no infiltrates, effusions or pneumothoraces. Axilla are clear. There is no hilar or mediastinal lymphadenopathy. IMPRESSION: Stable negative CT chest. CT abdomen: Liver appears normal. The gallbladder is surgically absent. The adrenal glands appear normal. The spleen is not enlarged. Kidneys appear normal. There is no mesenteric or retroperitoneal lymphadenopathy. Visualized portions of bowel appear normal. IMPRESSION: Stable negative CT abdomen. Dictated by: Dictated on workstation # [id number]
--- NOTE | 2018-10-12 17:41 | Diagnostic Imaging Report ---
INDICATION: History of lung cancer. TECHNIQUE: Patient received 27.1 mCi technetium 99m MDP intravenously and after 4 hours whole body planar imaging was performed. FINDINGS: There is an arthritic pattern of uptake about the medial compartment of the right knee and findings presumed to reflect left knee replacement. Mild degenerative uptake about the shoulders appears symmetric. Calvarium, spine, ribs, sternum, manubrium and pelvis appear unremarkable. Some mild heterogeneity of uptake about the distal ribs, inferiorly, at the costochondral junctions is present, believed to be incidental and with no CT pathological correlate from an earlier exam. There were no findings suggestive of scintigraphic evidence of metastatic disease. IMPRESSION: Degenerative and postsurgical changes. No findings of healing fracture or bony metastases. Dictated by: Dictated on workstation # [id number]
== END ==
LOC: CARD 11:24
PROVIDERS: ATTEND Internal Medicine Hematology & Oncology
DX: C34.81 Malignant neoplasm of overlapping sites of right bronchus and lung (principal)
CPT/HCPCS: 71260; 74170; 78306

== ENCOUNTER 2018-10-15 13:26 | Outpatient (RCR) | payer MEDICARE, OTHER ==
[2018-08-14 13:11] LABS: BASOPHILS % (AUTO) 0 % (0-10); EOSINOPHILS # (AUTO) 0.2 10^3/uL (0.0-0.3); EOSINOPHILS % (AUTO) 2 % (0-10); HEMATOCRIT 43 % (35-52); LYMPHOCYTES # (AUTO) 1.6 X 10^3 (1.0-4.0); LYMPHOCYTES % (AUTO) 19 % (12-44); MEAN CORPUSCULAR HEMOGLOBIN 30 PG (25-34); MEAN CORPUSCULAR HGB CONC 35 G/DL (32-36); MEAN CORPUSCULAR VOLUME 88 FL (80-99); MEAN PLATELET VOLUME 9.4 FL (7.4-10.4); MONOCYTES # (AUTO) 0.8 X 10^3 (0.0-1.0); MONOCYTES % (AUTO) 9 % (0-12); NEUTROPHILS % (AUTO) 70 % (42-75); PLATELET COUNT 337 10^3/uL (130-400); RED CELL DISTRIBUTION WIDTH 15.3 % (10.0-14.5); WHITE BLOOD COUNT 8.6 10^3/uL (4.3-11.0)
[2018-08-14 13:33] LABS: ALANINE AMINOTRANSFERASE 15 U/L (0-55); ALBUMIN 4.4 GM/DL (3.2-4.5); ALKALINE PHOSPHATASE 134 U/L (40-136); BILIRUBIN,TOTAL 0.7 MG/DL (0.1-1.0); BUN/CREATININE RATIO 21; CARBON DIOXIDE 24 MMOL/L (21-32); CHLORIDE 105 MMOL/L (98-107); CREATININE SERUM 0.84 MG/DL (0.60-1.30); GFR ESTIMATED > 60; GLUCOSE 120 MG/DL (70-105); POTASSIUM 3.7 MMOL/L (3.6-5.0); SODIUM 140 MMOL/L (135-145); TOTAL PROTEIN 7.4 GM/DL (6.4-8.2)
[2018-10-10 10:14] LABS: BASOPHILS % (AUTO) 0 % (0-10); EOSINOPHILS # (AUTO) 0.2 10^3/uL (0.0-0.3); EOSINOPHILS % (AUTO) 3 % (0-10); HEMATOCRIT 45 % (35-52); HEMOGLOBIN 14.8 G/DL (11.5-16.0); LYMPHOCYTES # (AUTO) 1.3 X 10^3 (1.0-4.0); LYMPHOCYTES % (AUTO) 19 % (12-44); MEAN CORPUSCULAR HEMOGLOBIN 29 PG (25-34); MEAN CORPUSCULAR HGB CONC 33 G/DL (32-36); MEAN CORPUSCULAR VOLUME 88 FL (80-99); MEAN PLATELET VOLUME 9.2 FL (7.4-10.4); MONOCYTES # (AUTO) 0.7 X 10^3 (0.0-1.0); MONOCYTES % (AUTO) 10 % (0-12); NEUTROPHILS # (AUTO) 4.7 X 10^3 (1.8-7.8); NEUTROPHILS % (AUTO) 68 % (42-75); PLATELET COUNT 289 10^3/uL (130-400)
[2018-10-10 10:39] LABS: ALANINE AMINOTRANSFERASE 21 U/L (0-55); ALBUMIN 4.5 GM/DL (3.2-4.5); ALKALINE PHOSPHATASE 132 U/L (40-136); BILIRUBIN,TOTAL 1.1 MG/DL (0.1-1.0); BUN/CREATININE RATIO 17; CALCIUM 9.7 MG/DL (8.5-10.1); CARBON DIOXIDE 23 MMOL/L (21-32); CHLORIDE 108 MMOL/L (98-107); CREATININE SERUM 0.75 MG/DL (0.60-1.30); GFR ESTIMATED > 60; GLUCOSE 102 MG/DL (70-105); POTASSIUM 3.7 MMOL/L (3.6-5.0); SODIUM 141 MMOL/L (135-145); TOTAL PROTEIN 7.5 GM/DL (6.4-8.2)
[~2018-10-15 13:26] MED LIST changes: -CATHETER FLUSH 10 ML SYR IV PRN
== END 2018-11-12 | disposition home or self-care (01) ==
LOC: ONC 13:26
PROVIDERS: ATTEND Internal Medicine Hematology & Oncology
DX: C34.31 Malignant neoplasm of lower lobe, right bronchus or lung (principal); C78.01 Secondary malignant neoplasm of right lung; C78.02 Secondary malignant neoplasm of left lung; R53.83 Other fatigue; F41.9 Anxiety disorder, unspecified; F32.9 Major depressive disorder, single episode, unspecified; K21.9 Gastro-esophageal reflux disease without esophagitis; K59.00 Constipation, unspecified; R21 Rash and other nonspecific skin eruption; N39.3 Stress incontinence (female) (male); Z79.899 Other long term (current) drug therapy
CPT/HCPCS: 36415; 71046; 80053; 85025; 99213

== ENCOUNTER → 2018-11-14 | Outpatient (CLI) | payer MEDICARE, OTHER ==
--- NOTE | 2018-11-14 15:25 | Diagnostic Imaging Report ---
INDICATION: Right shoulder pain. Time of exam 1:44 p.m. FINDINGS: Three views of the right shoulder show normal glenohumeral and acromioclavicular alignment. There are calcific densities projected in the acromiohumeral space. There are likely calcifications within the rotator cuff from calcific tendinitis. No fractures are seen. IMPRESSION: Calcific tendinitis of the rotator cuff. Dictated by: Dictated on workstation # [id number]
--- NOTE | 2018-11-14 18:49 | Diagnostic Imaging Report ---
INDICATION: Right shoulder pain. Time of exam: 1:42 PM Glenohumeral and acromioclavicular alignment are normal. There are some calcific densities projected in the acromiohumeral space suggestive of calcific tendinitis of the rotator cuff. No fractures are seen. No osteolytic or blastic lesions are seen. IMPRESSION: Findings suggestive of calcific tendinitis of the rotator cuff. Dictated by: Dictated on workstation # [id number]
== END ==
LOC: RAD 13:29
PROVIDERS: ATTEND Nurse Practitioner Adult Health
DX: M75.31 Calcific tendinitis of right shoulder (principal); C34.31 Malignant neoplasm of lower lobe, right bronchus or lung
CPT/HCPCS: 73030; 73060

== ENCOUNTER → 2018-12-04 | Outpatient (CLI) | payer MEDICARE, OTHER ==
--- NOTE | 2018-12-04 13:29 | Diagnostic Imaging Report ---
INDICATION: Lung cancer. TIME OF EXAM: 1:01 p.m. COMPARISON: Comparison is made with prior chest from 08/14/2018. FINDINGS: Volume loss in the right hemithorax is stable. Heart size is stable. Pulmonary vascularity is unremarkable. No infiltrate, effusion, or pneumothorax is seen. No mass is detected. There are kyphoplasty changes in the lower thoracic spine. IMPRESSION: Stable chest. No acute feature is detected. Dictated by: Dictated on workstation # [id number]
== END ==
LOC: RAD 12:43
PROVIDERS: ATTEND Nurse Practitioner Adult Health
DX: C34.90 Malignant neoplasm of unspecified part of unspecified bronchus or lung (principal); Z98.890 Other specified postprocedural states
CPT/HCPCS: 71046

== ENCOUNTER 2019-02-04 12:50 | Outpatient (RCR) | payer MEDICARE, OTHER ==
[2018-12-04 13:18] LABS: BASOPHILS % (AUTO) 0 % (0-10); EOSINOPHILS # (AUTO) 0.2 10^3/uL (0.0-0.3); EOSINOPHILS % (AUTO) 3 % (0-10); HEMATOCRIT 42 % (35-52); HEMOGLOBIN 13.9 G/DL (11.5-16.0); LYMPHOCYTES # (AUTO) 1.2 X 10^3 (1.0-4.0); LYMPHOCYTES % (AUTO) 16 % (12-44); MEAN CORPUSCULAR HEMOGLOBIN 29 PG (25-34); MEAN CORPUSCULAR HGB CONC 33 G/DL (32-36); MEAN CORPUSCULAR VOLUME 88 FL (80-99); MEAN PLATELET VOLUME 9.6 FL (7.4-10.4); MONOCYTES # (AUTO) 0.7 X 10^3 (0.0-1.0); MONOCYTES % (AUTO) 9 % (0-12); NEUTROPHILS # (AUTO) 5.7 X 10^3 (1.8-7.8); NEUTROPHILS % (AUTO) 73 % (42-75); PLATELET COUNT 258 10^3/uL (130-400); RED CELL DISTRIBUTION WIDTH 14.9 % (10.0-14.5); WHITE BLOOD COUNT 7.8 10^3/uL (4.3-11.0)
[2018-12-04 13:39] LABS: ALANINE AMINOTRANSFERASE 22 U/L (0-55); ALBUMIN 4.4 GM/DL (3.2-4.5); ALKALINE PHOSPHATASE 135 U/L (40-136); BILIRUBIN,TOTAL 0.9 MG/DL (0.1-1.0); BUN/CREATININE RATIO 21; CALCIUM 9.2 MG/DL (8.5-10.1); CARBON DIOXIDE 19 MMOL/L (21-32); CHLORIDE 108 MMOL/L (98-107); CREATININE SERUM 0.84 MG/DL (0.60-1.30); GFR ESTIMATED > 60; GLUCOSE 93 MG/DL (70-105); POTASSIUM 3.5 MMOL/L (3.6-5.0); SODIUM 139 MMOL/L (135-145); TOTAL PROTEIN 7.3 GM/DL (6.4-8.2)
[2019-02-04 13:08] LABS: BASOPHILS % (AUTO) 0 % (0-10); EOSINOPHILS # (AUTO) 0.3 10^3/uL (0.0-0.3); EOSINOPHILS % (AUTO) 4 % (0-10); HEMATOCRIT 42 % (35-52); HEMOGLOBIN 13.9 G/DL (11.5-16.0); LYMPHOCYTES # (AUTO) 1.3 X 10^3 (1.0-4.0); LYMPHOCYTES % (AUTO) 18 % (12-44); MEAN CORPUSCULAR HEMOGLOBIN 29 PG (25-34); MEAN CORPUSCULAR HGB CONC 33 G/DL (32-36); MEAN CORPUSCULAR VOLUME 89 FL (80-99); MEAN PLATELET VOLUME 9.4 FL (7.4-10.4); MONOCYTES # (AUTO) 0.8 X 10^3 (0.0-1.0); MONOCYTES % (AUTO) 11 % (0-12); NEUTROPHILS # (AUTO) 4.7 X 10^3 (1.8-7.8); NEUTROPHILS % (AUTO) 67 % (42-75); PLATELET COUNT 276 10^3/uL (130-400); RED CELL DISTRIBUTION WIDTH 15.3 % (10.0-14.5); WHITE BLOOD COUNT 7.1 10^3/uL (4.3-11.0)
[2019-02-04 13:31] LABS: ALANINE AMINOTRANSFERASE 11 U/L (0-55); ALBUMIN 4.4 GM/DL (3.2-4.5); ALKALINE PHOSPHATASE 130 U/L (40-136); BILIRUBIN,TOTAL 0.6 MG/DL (0.1-1.0); BUN/CREATININE RATIO 28; CALCIUM 9.3 MG/DL (8.5-10.1); CARBON DIOXIDE 25 MMOL/L (21-32); CHLORIDE 107 MMOL/L (98-107); CREATININE SERUM 0.74 MG/DL (0.60-1.30); GFR ESTIMATED > 60; GLUCOSE 82 MG/DL (70-105); SODIUM 141 MMOL/L (135-145); TOTAL PROTEIN 7.2 GM/DL (6.4-8.2)
== END 2019-02-12 | disposition home or self-care (01) ==
LOC: ONC 12:50
PROVIDERS: ATTEND Internal Medicine Hematology & Oncology
DX: C34.31 Malignant neoplasm of lower lobe, right bronchus or lung (principal); C78.01 Secondary malignant neoplasm of right lung; C78.02 Secondary malignant neoplasm of left lung; R53.83 Other fatigue; F41.9 Anxiety disorder, unspecified; F32.9 Major depressive disorder, single episode, unspecified; K21.9 Gastro-esophageal reflux disease without esophagitis; K59.00 Constipation, unspecified; R21 Rash and other nonspecific skin eruption; N39.3 Stress incontinence (female) (male); Z79.899 Other long term (current) drug therapy
CPT/HCPCS: 36415; 80053; 85025; 99213

== ENCOUNTER → 2019-02-04 | Outpatient (CLI) | payer MEDICARE, OTHER ==
--- NOTE | 2019-02-04 14:23 | Diagnostic Imaging Report ---
Indication: Lung cancer. Time of exam 1:07 PM Correlation is made with prior study 12/04/2018. The heart size is stable. Volume loss right hemithorax is similar to prior study. No infiltrates are detected. Pulmonary vascularity is normal. No effusion is seen. Kyphoplasty changes lower thoracic spine are noted. Impression: Stable chest since exam from 12/04/2018. No acute feature is identified. Dictated by: Dictated on workstation # [id number]
== END ==
LOC: RAD 12:55
PROVIDERS: ATTEND Nurse Practitioner Adult Health
DX: C34.91 Malignant neoplasm of unspecified part of right bronchus or lung (principal)
CPT/HCPCS: 71046; 99213

== ENCOUNTER → 2019-02-06 | Outpatient (CLI) | payer MEDICARE, OTHER ==
[~2019-02-06] MED LIST changes: +HOLD METFORMIN - RECEIVED CONTRAST 20 ML VIAL IV SCH; +IOHEXOL 350 MG/ML 100 ML (OMNIPAQUE 350) VIAL IV ONE; +NS 100 ML (IVPB) BAG IV ONE
--- NOTE | 2019-02-06 14:27 | Diagnostic Imaging Report ---
PROCEDURE: CT head with and without contrast. TECHNIQUE: Multiple contiguous axial images were obtained through the brain before and after the administration of intravenous contrast. Auto Exposure Controls were utilized during the CT exam to meet ALARA standards for radiation dose reduction. INDICATION: Lung cancer. Patient has headaches and dizziness. COMPARISON: No prior studies are available for comparison. FINDINGS: Ventricular size and sulcal pattern are within normal limits. Significant periventricular hypodensity is noted consistent with chronic microvascular ischemia. No sulcal effacement, midline shift or hemorrhage is detected. Postcontrast imaging is without an abnormal enhancing lesion. Cisterns are patent. Visualized paranasal sinuses are clear. IMPRESSION: Changes of chronic microvascular ischemia. No acute intracranial process is detected. There are no findings to suggest intracranial metastatic disease. Dictated by: Dictated on workstation # [id number]
--- NOTE | 2019-02-06 14:47 | Diagnostic Imaging Report ---
PROCEDURE: CT chest with contrast only. TECHNIQUE: Multiple contiguous axial images were obtained through the chest after administration of intravenous contrast. Auto Exposure Controls were utilized during the CT exam to meet ALARA standards for radiation dose reduction. INDICATION: Lung cancer. FINDINGS: Comparison is 10/12/2018. There are postsurgical changes of right lower lobectomy. No evidence for local recurrence of disease. No suspicious pulmonary nodules. No edema or pneumonia. No pleural effusion or pneumothorax. Heart size is normal. No pericardial effusion. Aorta is normal in caliber. There is no axillary, supraclavicular or mediastinal lymphadenopathy. Gallbladder is absent. Upper abdomen is otherwise normal. There are no suspicious osseous lesions. Two lower thoracic compression fractures have been treated with vertebroplasty. IMPRESSION: 1. Right lower lobectomy without evidence for local recurrence. Dictated by: Dictated on workstation # [id number]
== END ==
LOC: RAD 12:23
PROVIDERS: ATTEND Internal Medicine Hematology & Oncology
DX: I67.82 Cerebral ischemia (principal); Z90.2 Acquired absence of lung [part of]; Z85.118 Personal history of other malignant neoplasm of bronchus and lung
CPT/HCPCS: 70470; 71260

== ENCOUNTER 2019-07-02 12:57 | Outpatient (RCR) | payer MEDICARE, OTHER ==
[2019-04-04 13:53] LABS: BASOPHILS % (AUTO) 0 % (0-10); EOSINOPHILS % (AUTO) 0 % (0-10); HEMATOCRIT 43 % (35-52); HEMOGLOBIN 14.3 G/DL (11.5-16.0); LYMPHOCYTES # (AUTO) 0.6 X 10^3 (1.0-4.0); LYMPHOCYTES % (AUTO) 8 % (12-44); MEAN CORPUSCULAR HEMOGLOBIN 30 PG (25-34); MEAN CORPUSCULAR HGB CONC 33 G/DL (32-36); MEAN CORPUSCULAR VOLUME 90 FL (80-99); MEAN PLATELET VOLUME 9.6 FL (7.4-10.4); MONOCYTES # (AUTO) 0.3 X 10^3 (0.0-1.0); MONOCYTES % (AUTO) 4 % (0-12); NEUTROPHILS # (AUTO) 6.8 X 10^3 (1.8-7.8); NEUTROPHILS % (AUTO) 88 % (42-75); PLATELET COUNT 234 10^3/uL (130-400); RED CELL DISTRIBUTION WIDTH 14.9 % (10.0-14.5); WHITE BLOOD COUNT 7.8 10^3/uL (4.3-11.0)
[2019-04-04 14:20] LABS: ALANINE AMINOTRANSFERASE 14 U/L (0-55); ALBUMIN 4.4 GM/DL (3.2-4.5); ALKALINE PHOSPHATASE 140 U/L (40-136); BILIRUBIN,TOTAL 0.6 MG/DL (0.1-1.0); BUN/CREATININE RATIO 20; CALCIUM 9.1 MG/DL (8.5-10.1); CARBON DIOXIDE 23 MMOL/L (21-32); CHLORIDE 105 MMOL/L (98-107); CREATININE SERUM 0.74 MG/DL (0.60-1.30); GFR ESTIMATED > 60; GLUCOSE 124 MG/DL (70-105); POTASSIUM 4.2 MMOL/L (3.6-5.0); SODIUM 138 MMOL/L (135-145); TOTAL PROTEIN 7.3 GM/DL (6.4-8.2)
[~2019-07-02 12:57] MED LIST changes: -HOLD METFORMIN - RECEIVED CONTRAST 20 ML VIAL IV SCH; -IOHEXOL 350 MG/ML 100 ML (OMNIPAQUE 350) VIAL IV ONE; -NS 100 ML (IVPB) BAG IV ONE; -TRAM50TA2 PO; +TRM50T PO
[2019-07-02 13:35] LABS: BASOPHILS % (AUTO) 0 % (0-10); EOSINOPHILS # (AUTO) 0.2 10^3/uL (0.0-0.3); EOSINOPHILS % (AUTO) 5 % (0-10); HEMATOCRIT 42 % (35-52); HEMOGLOBIN 13.6 G/DL (11.5-16.0); LYMPHOCYTES # (AUTO) 1.1 X 10^3 (1.0-4.0); LYMPHOCYTES % (AUTO) 21 % (12-44); MEAN CORPUSCULAR HEMOGLOBIN 29 PG (25-34); MEAN CORPUSCULAR HGB CONC 33 G/DL (32-36); MEAN CORPUSCULAR VOLUME 88 FL (80-99); MEAN PLATELET VOLUME 9.6 FL (7.4-10.4); MONOCYTES # (AUTO) 0.5 X 10^3 (0.0-1.0); MONOCYTES % (AUTO) 11 % (0-12); NEUTROPHILS # (AUTO) 3.2 X 10^3 (1.8-7.8); NEUTROPHILS % (AUTO) 63 % (42-75); PLATELET COUNT 289 10^3/uL (130-400); RED CELL DISTRIBUTION WIDTH 15.4 % (10.0-14.5)
[2019-07-02 13:54] LABS: ALANINE AMINOTRANSFERASE 23 U/L (0-55); ALBUMIN 4.5 GM/DL (3.2-4.5); ALKALINE PHOSPHATASE 111 U/L (40-136); BILIRUBIN,TOTAL 0.7 MG/DL (0.1-1.0); BUN/CREATININE RATIO 18; CALCIUM 9.2 MG/DL (8.5-10.1); CARBON DIOXIDE 21 MMOL/L (21-32); CHLORIDE 109 MMOL/L (98-107); CREATININE SERUM 0.74 MG/DL (0.60-1.30); GFR ESTIMATED > 60; GLUCOSE 115 MG/DL (70-105); POTASSIUM 3.7 MMOL/L (3.6-5.0); SODIUM 141 MMOL/L (135-145); TOTAL PROTEIN 7.2 GM/DL (6.4-8.2)
== END 2019-07-03 | disposition home or self-care (01) ==
LOC: ONC 12:57
PROVIDERS: ATTEND Internal Medicine Hematology & Oncology
DX: C34.31 Malignant neoplasm of lower lobe, right bronchus or lung (principal); C34.81 Malignant neoplasm of overlapping sites of right bronchus and lung; M84.48XA Pathological fracture, other site, initial encounter for fracture; R51 Headache; Z90.2 Acquired absence of lung [part of]; Z79.899 Other long term (current) drug therapy
CPT/HCPCS: 36415; 80053; 85025; 99213

== ENCOUNTER → 2019-08-13 | Outpatient (CLI) | payer MEDICARE, OTHER ==
[~2019-08-13] VITALS: Ht 172 cm; Wt 98.0 kg
[~2019-08-13] MED LIST changes: +CATHETER FLUSH 10 ML SYR IV PRN; -CETI10TA20 PO; +CETI10TA21 PO; +REGADENOSON 0.4 MG/5 ML SYR (LEXISCAN) IV ONE
[2019-08-13] MEDS: CATHETER FLUSH 10 ML SYR IV PRN ×2 (07:15→07:21)
[2019-08-13 08:11] VITALS: BP 139/76
--- NOTE | 2019-08-13 18:26 | STRESS TEST ---
DATE OF SERVICE: 08/13/2019 RESTING AND POST REGADENOSON TECHNETIUM-99M TETROFOSMIN SPECT CT IMAGING Baseline images were carried out after injection of 10.62 mCi of technetium-99m Tetrofosmin. This was followed by 0.4 mg regadenoson and 32.2 mCi of technetium-99m Tetrofosmin for stress imaging. The electrocardiogram showed sinus rhythm with isolated premature ventricular contractions. The study was performed under Dr. Mann's supervision and the electrocardiographic portion of the study is reported separately by him. Review of images at rest and following stress does not indicate any significant perfusion defects consistent with significant myocardial ischemia or infarction. Gated images show normal global left ventricular systolic function with normal regional wall motion. Left ventricular ejection fraction is calculated to be 79%. Left ventricular end diastolic volume is 30 mL. TID is absent (1.03). CONCLUSIONS: 1. No evidence of any significant myocardial ischemia or infarction on this study. 2. Normal regional wall motion. 3. Normal global left ventricular systolic function with a calculated ejection fraction of 79%. Job ID: [id number] DocumentID: [id number] Dictated Date: 08/13/2019 17:39:13 Electro Mechanical Technologist Date: 08/13/2019 18:25:28 Dictated By: SHAHZAD HACKETT MD, MA, FACP, FACC,
== END ==
LOC: CARD 06:38
PROVIDERS: ATTEND Internal Medicine
DX: R42 Dizziness and giddiness (principal)
CPT/HCPCS: 78452; 93017

== ENCOUNTER → 2019-08-19 | Outpatient (CLI) | payer MEDICARE, OTHER ==
[~2019-08-19] MED LIST changes: -CATHETER FLUSH 10 ML SYR IV PRN; -REGADENOSON 0.4 MG/5 ML SYR (LEXISCAN) IV ONE
--- NOTE | 2019-08-19 13:57 | Diagnostic Imaging Report ---
INDICATION: Cancer follow-up. PA and lateral chest. FINDINGS: Heart size and pulmonary vascularity are normal. Lungs are clear. There are no effusions or pneumothoraces. IMPRESSION: No acute abnormalities in the chest. Dictated by: Dictated on workstation # [id number]
== END ==
LOC: RAD 12:48
PROVIDERS: ATTEND Nurse Practitioner Adult Health
DX: C34.90 Malignant neoplasm of unspecified part of unspecified bronchus or lung (principal)
CPT/HCPCS: 71046

== ENCOUNTER → 2019-08-30 | Outpatient (CLI) | payer MEDICARE, OTHER ==
--- NOTE | 2019-08-30 15:37 | Diagnostic Imaging Report ---
PROCEDURE: US Thyroid. TECHNIQUE: Multiple real-time grayscale images were obtained of the thyroid in various projections. INDICATION: Thyroid nodules. COMPARISON: Correlation is made with prior thyroid ultrasound from 04/13/2018. FINDINGS: Right lobe of the thyroid measures 4.8 x 1.6 x 1.0 cm and the left lobe measures 3.6 x 1.4 x 0.9 cm. Isthmus is 3 mm in thickness. Circumscribed hypoechoic nodule in lower pole of right lobe is stable at 6 mm x 4 mm x 6 mm. Mixed echogenicity nodule in mid left lobe of the thyroid is stable at 7 mm x 3 mm x 5 mm. No new mass is seen. No dominant lesion is identified. IMPRESSION: Stable bilateral thyroid nodules when compared with examination from 04/13/2018. Dictated by: Dictated on workstation # [id number]
--- NOTE | 2019-08-30 16:05 | Diagnostic Imaging Report ---
INDICATION: Routine screening. COMPARISON: 09/06/2011 and 06/10/2010. TECHNIQUE: 2D and 3D bilateral screening mammography was performed with CAD. FINDINGS: Scattered fibroglandular densities are identified bilaterally. No dominant mass or malignant appearing microcalcifications are identified. The axillae are unremarkable. IMPRESSION: No mammographic features suspicious for malignancy are identified. ACR BI-RADS Category 1: Negative. Result letter will be mailed to the patient. Note: At least 10% of breast cancer is not imaged by mammography. Dictated by: Dictated on workstation # [id number]
== END ==
LOC: RAD 14:56
PROVIDERS: ATTEND Nurse Practitioner Family
DX: Z12.31 Encounter for screening mammogram for malignant neoplasm of breast (principal); E04.2 Nontoxic multinodular goiter
CPT/HCPCS: 76536; 77067

== ENCOUNTER 2019-11-14 09:40 | Outpatient (RCR) | payer MEDICARE, OTHER ==
[2019-08-19 13:22] LABS: BASOPHILS % (AUTO) 0 % (0-10); EOSINOPHILS # (AUTO) 0.2 10^3/uL (0.0-0.3); EOSINOPHILS % (AUTO) 3 % (0-10); HEMATOCRIT 43 % (35-52); LYMPHOCYTES # (AUTO) 1.4 X 10^3 (1.0-4.0); LYMPHOCYTES % (AUTO) 21 % (12-44); MEAN CORPUSCULAR HEMOGLOBIN 29 PG (25-34); MEAN CORPUSCULAR HGB CONC 32 G/DL (32-36); MEAN CORPUSCULAR VOLUME 89 FL (80-99); MEAN PLATELET VOLUME 9.6 FL (7.4-10.4); MONOCYTES # (AUTO) 0.7 X 10^3 (0.0-1.0); MONOCYTES % (AUTO) 10 % (0-12); NEUTROPHILS # (AUTO) 4.4 X 10^3 (1.8-7.8); NEUTROPHILS % (AUTO) 66 % (42-75); PLATELET COUNT 244 10^3/uL (130-400); WHITE BLOOD COUNT 6.6 10^3/uL (4.3-11.0)
[2019-08-19 13:42] LABS: ALANINE AMINOTRANSFERASE 24 U/L (0-55); ALBUMIN 4.5 GM/DL (3.2-4.5); ALKALINE PHOSPHATASE 119 U/L (40-136); BILIRUBIN,TOTAL 0.6 MG/DL (0.1-1.0); BUN/CREATININE RATIO 15; CALCIUM 9.2 MG/DL (8.5-10.1); CARBON DIOXIDE 24 MMOL/L (21-32); CHLORIDE 107 MMOL/L (98-107); CREATININE SERUM 0.75 MG/DL (0.60-1.30); GFR ESTIMATED > 60; GLUCOSE 95 MG/DL (70-105); POTASSIUM 3.8 MMOL/L (3.6-5.0); SODIUM 139 MMOL/L (135-145); TOTAL PROTEIN 7.2 GM/DL (6.4-8.2)
[2019-09-12 11:04] LABS: BASOPHILS % (AUTO) 0 % (0-10); EOSINOPHILS # (AUTO) 0.2 10^3/uL (0.0-0.3); EOSINOPHILS % (AUTO) 4 % (0-10); HEMATOCRIT 44 % (35-52); HEMOGLOBIN 14.4 G/DL (11.5-16.0); LYMPHOCYTES # (AUTO) 1.2 X 10^3 (1.0-4.0); LYMPHOCYTES % (AUTO) 20 % (12-44); MEAN CORPUSCULAR HEMOGLOBIN 29 PG (25-34); MEAN CORPUSCULAR HGB CONC 33 G/DL (32-36); MEAN CORPUSCULAR VOLUME 88 FL (80-99); MEAN PLATELET VOLUME 9.6 FL (7.4-10.4); MONOCYTES # (AUTO) 0.6 X 10^3 (0.0-1.0); MONOCYTES % (AUTO) 10 % (0-12); NEUTROPHILS # (AUTO) 3.9 X 10^3 (1.8-7.8); NEUTROPHILS % (AUTO) 66 % (42-75); PLATELET COUNT 275 10^3/uL (130-400); RED CELL DISTRIBUTION WIDTH 16.2 % (10.0-14.5); WHITE BLOOD COUNT 5.9 10^3/uL (4.3-11.0)
[2019-09-12 11:25] LABS: ALANINE AMINOTRANSFERASE 22 U/L (0-55); ALBUMIN 4.6 GM/DL (3.2-4.5); ALKALINE PHOSPHATASE 124 U/L (40-136); BILIRUBIN,TOTAL 0.7 MG/DL (0.1-1.0); BUN/CREATININE RATIO 26; CALCIUM 9.2 MG/DL (8.5-10.1); CARBON DIOXIDE 24 MMOL/L (21-32); CHLORIDE 106 MMOL/L (98-107); CREATININE SERUM 0.73 MG/DL (0.60-1.30); GFR ESTIMATED > 60; GLUCOSE 102 MG/DL (70-105); POTASSIUM 3.9 MMOL/L (3.6-5.0); SODIUM 141 MMOL/L (135-145); TOTAL PROTEIN 7.4 GM/DL (6.4-8.2)
[2019-11-14 10:10] LABS: BASOPHILS % (AUTO) 0 % (0-10); EOSINOPHILS # (AUTO) 0.2 10^3/uL (0.0-0.3); EOSINOPHILS % (AUTO) 3 % (0-10); HEMATOCRIT 42 % (35-52); HEMOGLOBIN 13.8 G/DL (11.5-16.0); LYMPHOCYTES # (AUTO) 1.1 X 10^3 (1.0-4.0); LYMPHOCYTES % (AUTO) 20 % (12-44); MEAN CORPUSCULAR HEMOGLOBIN 30 PG (25-34); MEAN CORPUSCULAR HGB CONC 33 G/DL (32-36); MEAN CORPUSCULAR VOLUME 91 FL (80-99); MEAN PLATELET VOLUME 9.2 FL (7.4-10.4); MONOCYTES # (AUTO) 0.6 X 10^3 (0.0-1.0); MONOCYTES % (AUTO) 10 % (0-12); NEUTROPHILS # (AUTO) 3.5 X 10^3 (1.8-7.8); NEUTROPHILS % (AUTO) 66 % (42-75); PLATELET COUNT 264 10^3/uL (130-400); RED CELL DISTRIBUTION WIDTH 15.2 % (10.0-14.5); WHITE BLOOD COUNT 5.3 10^3/uL (4.3-11.0)
[2019-11-14 10:36] LABS: ALANINE AMINOTRANSFERASE 14 U/L (0-55); ALBUMIN 4.4 GM/DL (3.2-4.5); ALKALINE PHOSPHATASE 113 U/L (40-136); BILIRUBIN,TOTAL 0.7 MG/DL (0.1-1.0); BUN/CREATININE RATIO 19; CALCIUM 9.3 MG/DL (8.5-10.1); CARBON DIOXIDE 26 MMOL/L (21-32); CHLORIDE 107 MMOL/L (98-107); CREATININE SERUM 0.72 MG/DL (0.60-1.30); GFR ESTIMATED > 60; GLUCOSE 95 MG/DL (70-105); POTASSIUM 4.1 MMOL/L (3.6-5.0); SODIUM 142 MMOL/L (135-145); TOTAL PROTEIN 7.5 GM/DL (6.4-8.2)
== END 2019-11-17 | disposition home or self-care (01) ==
LOC: ONC 09:40
PROVIDERS: ATTEND Internal Medicine Hematology & Oncology
DX: C34.31 Malignant neoplasm of lower lobe, right bronchus or lung (principal); C34.81 Malignant neoplasm of overlapping sites of right bronchus and lung; M84.48XA Pathological fracture, other site, initial encounter for fracture; R51 Headache; Z90.2 Acquired absence of lung [part of]; Z79.899 Other long term (current) drug therapy
CPT/HCPCS: 80053; 85025; 99213

== ENCOUNTER → 2019-11-14 | Outpatient (CLI) | payer MEDICARE, OTHER ==
--- NOTE | 2019-11-14 10:17 | Diagnostic Imaging Report ---
INDICATION: Lung cancer. Time of exam 9:59 AM Correlation is made with prior chest from 08/19/2019. Heart size stable. Lungs remain clear. Vascularity is normal. No infiltrates are seen. There is no effusion or pneumothorax. There are kyphoplasty changes lower thoracic spine. IMPRESSION: Stable chest. No acute features detected. Dictated by: Dictated on workstation # [id number]
== END ==
LOC: RAD 09:43
PROVIDERS: ATTEND Nurse Practitioner Adult Health
DX: C34.31 Malignant neoplasm of lower lobe, right bronchus or lung (principal); C34.81 Malignant neoplasm of overlapping sites of right bronchus and lung
CPT/HCPCS: 71046

== ENCOUNTER → 2019-12-10 | Outpatient (CLI) | payer MEDICARE, OTHER ==
[~2019-12-10] MED LIST changes: +CATHETER FLUSH 10 ML SYR IV PRN; +HOLD METFORMIN - RECEIVED CONTRAST 20 ML VIAL IV SCH; +IOHEXOL 350 MG/ML 100 ML (OMNIPAQUE 350) VIAL IV ONE; +NS 100 ML (IVPB) BAG IV ONE
--- NOTE | 2019-12-10 11:01 | Diagnostic Imaging Report ---
PROCEDURE: CT chest with contrast, CT abdomen with and without contrast. TECHNIQUE: Precontrast acquisitions were acquired through the abdomen. Multiple contiguous axial images were obtained through the chest and abdomen after administration of intravenous contrast. Auto Exposure Controls were utilized during the CT exam to meet ALARA standards for radiation dose reduction. INDICATION: Lung cancer. Correlation is made with prior CT chest from 02/06/[address] abdomen from 10/12/2018. CT CHEST: No axillary lymphadenopathy is detected. No mediastinal or hilar lymphadenopathy is detected. No pericardial or pleural fluid is identified. Postsurgical changes right lower lobectomy are again noted. No recurrent mass is identified. No infiltrates are seen. There are no nodules. Kyphoplasty changes lower thoracic spine are again noted. IMPRESSION: Stable CT chest since exam from 02/06/2019. There are postoperative changes right lower lobectomy. No recurrence or metastatic disease is detected. CT ABDOMEN: There is mild generalized low density throughout the liver suggestive of hepatic steatosis. No discrete liver mass is detected. Gallbladder is surgically absent. No biliary ductal dilatation is identified. The pancreas and spleen are unremarkable. No adrenal mass is detected. Kidneys are unremarkable. Aorta is nonaneurysmal. No central retroperitoneal or mesenteric lymphadenopathy is seen. The bowel loops are of normal caliber. There is no ascites. IMPRESSION: Stable CT abdomen since 10/12/2018. There is no evidence of metastatic disease. Dictated by: Dictated on workstation # [id number]
--- NOTE | 2019-12-10 14:01 | Diagnostic Imaging Report ---
INDICATION: Lung carcinoma. Patient was administered 27.0 mCi technetium 99m MDP intravenously and whole-body imaging was performed after a three-hour delay. Comparison is made with prior whole body bone scan from 10/12/2018. There is normal uptake of activity by the axial and appendicular skeleton. There is uptake by the kidneys with excretion into urinary bladder. Postoperative changes total knee arthroplasty on the left again noted. There are some degenerative changes involving the medial compartment of the right knee. Mild degenerative changes lower cervical spine on the left are noted, likely facet arthropathy. No suspicious focus is identified to suggest osseous metastatic disease. IMPRESSION: Stable whole body bone scan with no scintigraphic evidence of osseous metastatic disease. Dictated by: Dictated on workstation # [id number]
== END ==
LOC: CARD 10:13
PROVIDERS: ATTEND Nurse Practitioner Adult Health
DX: Z51.11 Encounter for antineoplastic chemotherapy (principal); C34.81 Malignant neoplasm of overlapping sites of right bronchus and lung; Z98.890 Other specified postprocedural states; Z90.49 Acquired absence of other specified parts of digestive tract; Z96.652 Presence of left artificial knee joint
CPT/HCPCS: 71260; 74170; 78306; A9503

== ENCOUNTER 2020-01-21 14:53 | Outpatient (RCR) | payer MEDICARE, OTHER ==
[~2020-01-21 14:53] MED LIST changes: +ALPR.25T PO; -ALPR0.254 PO; -CATHETER FLUSH 10 ML SYR IV PRN; -CETI10TA21 PO; +CETI10TA49 PO; -HOLD METFORMIN - RECEIVED CONTRAST 20 ML VIAL IV SCH; -IOHEXOL 350 MG/ML 100 ML (OMNIPAQUE 350) VIAL IV ONE; -NS 100 ML (IVPB) BAG IV ONE
[2020-01-21 15:05] LABS: BASOPHILS % (AUTO) 0 % (0-10); EOSINOPHILS # (AUTO) 0.2 10^3/uL (0.0-0.3); EOSINOPHILS % (AUTO) 3 % (0-10); HEMATOCRIT 42 % (35-52); HEMOGLOBIN 13.8 G/DL (11.5-16.0); LYMPHOCYTES # (AUTO) 1.4 X 10^3 (1.0-4.0); LYMPHOCYTES % (AUTO) 22 % (12-44); MEAN CORPUSCULAR HEMOGLOBIN 30 PG (25-34); MEAN CORPUSCULAR HGB CONC 33 G/DL (32-36); MEAN CORPUSCULAR VOLUME 90 FL (80-99); MONOCYTES # (AUTO) 0.5 X 10^3 (0.0-1.0); MONOCYTES % (AUTO) 8 % (0-12); NEUTROPHILS # (AUTO) 4.1 X 10^3 (1.8-7.8); NEUTROPHILS % (AUTO) 67 % (42-75); PLATELET COUNT 254 10^3/uL (130-400); WHITE BLOOD COUNT 6.1 10^3/uL (4.3-11.0)
[2020-01-21 15:21] LABS: ALANINE AMINOTRANSFERASE 17 U/L (0-55); ALBUMIN 4.3 GM/DL (3.2-4.5); ALKALINE PHOSPHATASE 110 U/L (40-136); BILIRUBIN,TOTAL 0.6 MG/DL (0.1-1.0); BUN/CREATININE RATIO 25; CALCIUM 8.6 MG/DL (8.5-10.1); CARBON DIOXIDE 24 MMOL/L (21-32); CHLORIDE 106 MMOL/L (98-107); CREATININE SERUM 0.79 MG/DL (0.60-1.30); GFR ESTIMATED > 60; GLUCOSE 107 MG/DL (70-105); POTASSIUM 4.1 MMOL/L (3.6-5.0); SODIUM 140 MMOL/L (135-145)
== END 2020-04-20 | disposition home or self-care (01) ==
LOC: ONC 14:53
PROVIDERS: ATTEND Internal Medicine Hematology & Oncology
DX: C34.81 Malignant neoplasm of overlapping sites of right bronchus and lung (principal); M84.48XA Pathological fracture, other site, initial encounter for fracture; R51.9 Headache, unspecified; K21.9 Gastro-esophageal reflux disease without esophagitis; Z79.899 Other long term (current) drug therapy; Z90.2 Acquired absence of lung [part of]
CPT/HCPCS: 80053; 85025; G0463; 99213

== ENCOUNTER 2020-04-22 10:36 | Outpatient (RCR) | payer MEDICARE, OTHER ==
[2020-04-22 10:47] LABS: BASOPHILS % (AUTO) 0 % (0-10); EOSINOPHILS # (AUTO) 0.2 10^3/uL (0.0-0.3); EOSINOPHILS % (AUTO) 3 % (0-10); HEMATOCRIT 41 % (35-52); HEMOGLOBIN 12.8 g/dL (11.5-16.0); LYMPHOCYTES # (AUTO) 1.1 10^3/uL (1.0-4.0); LYMPHOCYTES % (AUTO) 20 % (12-44); MEAN CORPUSCULAR HEMOGLOBIN 28 pg (25-34); MEAN CORPUSCULAR HGB CONC 31 g/dL (32-36); MEAN CORPUSCULAR VOLUME 91 fL (80-99); MEAN PLATELET VOLUME 9.2 fL (9.0-12.2); MONOCYTES # (AUTO) 0.4 10^3/uL (0.0-1.0); MONOCYTES % (AUTO) 8 % (0-12); NEUTROPHILS # (AUTO) 3.7 10^3/uL (1.8-7.8); NEUTROPHILS % (AUTO) 69 % (42-75); PLATELET COUNT 277 10^3/uL (130-400); WHITE BLOOD COUNT 5.4 10^3/uL (4.3-11.0)
[2020-04-22 11:08] LABS: ALANINE AMINOTRANSFERASE 20 U/L (0-55); ALBUMIN 4.5 GM/DL (3.2-4.5); ALKALINE PHOSPHATASE 128 U/L (40-136); BILIRUBIN,TOTAL 0.9 MG/DL (0.1-1.0); BUN/CREATININE RATIO 25; CARBON DIOXIDE 24 MMOL/L (21-32); CHLORIDE 105 MMOL/L (98-107); CREATININE SERUM 0.72 MG/DL (0.60-1.30); GFR ESTIMATED > 60; GLUCOSE 118 MG/DL (70-105); SODIUM 138 MMOL/L (135-145); TOTAL PROTEIN 7.1 GM/DL (6.4-8.2)
== END 2020-06-22 09:23 | disposition home or self-care (01) ==
LOC: ONC 10:36
PROVIDERS: ATTEND Internal Medicine Hematology & Oncology
DX: C34.81 Malignant neoplasm of overlapping sites of right bronchus and lung (principal); M84.48XA Pathological fracture, other site, initial encounter for fracture; K21.9 Gastro-esophageal reflux disease without esophagitis; R51.9 Headache, unspecified; Z79.899 Other long term (current) drug therapy; Z90.2 Acquired absence of lung [part of]
CPT/HCPCS: 80053; 85025; G0463

== ENCOUNTER → 2020-04-22 | Outpatient (CLI) | payer MEDICARE, OTHER ==
--- NOTE | 2020-04-22 11:54 | Diagnostic Imaging Report ---
INDICATION: Lung carcinoma. TIME OF EXAM: 11:32 a.m. COMPARISON: Correlation is made with prior chest 11/14/2019. FINDINGS: Heart size is stable. Pulmonary vascularity is normal. Volume loss in right hemithorax is unchanged. No mass is detected. There is no infiltrate. No effusion or pneumothorax is seen. Kyphoplasty changes in lower thoracic spine are noted. IMPRESSION: Stable chest. No acute feature is identified. Dictated by: Dictated on workstation # [id number]
== END ==
LOC: RAD 11:23
PROVIDERS: ATTEND Nurse Practitioner Adult Health
DX: C34.81 Malignant neoplasm of overlapping sites of right bronchus and lung (principal)
CPT/HCPCS: 71046

== ENCOUNTER 2020-06-02 12:50 | Outpatient (RCR) | payer MEDICARE, OTHER ==
[2020-07-03] MEDS ORDERED: DOCU-238 PO (12:59)
== END 2020-07-06 | disposition home or self-care (01) ==
PROVIDERS: ATTEND Orthopaedic Surgery
DX: Z47.1 Aftercare following joint replacement surgery (principal); Z96.651 Presence of right artificial knee joint

== ENCOUNTER → 2020-06-15 | Outpatient (CLI) | payer MEDICARE, OTHER ==
[~2020-06-15] MED LIST changes: +CATHETER FLUSH 10 ML SYR IV PRN; +HOLD METFORMIN - RECEIVED CONTRAST 20 ML VIAL IV SCH; +IOHEXOL 350 MG/ML 100 ML (OMNIPAQUE 350) VIAL IV ONE; +NS 100 ML (IVPB) BAG IV ONE
--- NOTE | 2020-06-15 13:41 | Diagnostic Imaging Report ---
INDICATION: Lung carcinoma and anterior right-sided rib pain. Patient was administered 27.1 mCi technetium 99m MDP intravenously and whole-body imaging was performed after a three-hour delay. Correlation is made with prior whole body bone scan from 12/10/2019. Normal uptake of activity by the axial and appendicular skeleton is noted. There is uptake by the kidneys with excretion into the urinary bladder. Photopenia over bilateral knees is noted consistent with bilateral knee replacements. Vague uptake involving anterior right lower rib is noted, nonspecific. There is mild uptake in the lower cervical spine, likely owing to degenerative facet disease. No other suspicious foci are seen. IMPRESSION: Very mild uptake involving the lower anterior right rib, indeterminate between a solitary metastasis versus posttraumatic changes. The remainder of the study is unremarkable. Dictated by: Dictated on workstation # [id number]
--- NOTE | 2020-06-15 14:04 | Diagnostic Imaging Report ---
PROCEDURE: CT chest with contrast, CT abdomen and pelvis with and without contrast. TECHNIQUE: Pre and post intravenous contrast axial imaging of the abdomen and pelvis and post contrast axial imaging of the chest were performed. Auto Exposure Controls were utilized during the CT exam to meet ALARA standards for radiation dose reduction. INDICATION: Lung carcinoma, follow-up. COMPARISON: Correlation is made with prior CT from 12/10/2019. FINDINGS: CT chest: No axillary lymphadenopathy is identified. No mediastinal or hilar lymphadenopathy is identified. There is no pericardial or pleural fluid detected. Postsurgical changes from right lower lobectomy are noted. No recurrent mass is detected. No nodular infiltrate is detected. Kyphoplasty changes in lower thoracic spine are noted. IMPRESSION: Stable post lobectomy changes in the right lower lobe. No thoracic lymphadenopathy or evidence of pulmonary metastatic disease is identified. CT abdomen and pelvis: No discrete liver mass is detected. Gallbladder is surgically absent. There is no biliary ductal dilatation. Pancreas and spleen are unremarkable. No adrenal mass is detected. Kidneys are unremarkable. Aorta is nonaneurysmal. No central retroperitoneal or mesenteric lymphadenopathy is seen. Small and large bowel loops are normal caliber. There is no obstruction. There is no free fluid or fluid collection. Bladder is unremarkable. Uterus appears to be surgically absent. No pelvic lymphadenopathy is seen. Bony structures are unremarkable. IMPRESSION: Stable CT abdomen and pelvis since exam from 12/10/2019. No lymphadenopathy or evidence of metastatic disease is identified. Dictated by: Dictated on workstation # [id number]
== END ==
LOC: CARD 09:38
PROVIDERS: ATTEND Nurse Practitioner Adult Health
DX: C34.31 Malignant neoplasm of lower lobe, right bronchus or lung (principal)
CPT/HCPCS: 71260; 74178; 78306; A9503

== ENCOUNTER 2020-07-07 05:29 | Outpatient (RCR) | payer MEDICARE, OTHER ==
[~2020-07-07] VITALS: Ht 154.9 cm; Wt 81.7 kg
[~2020-07-07 05:29] MED LIST changes: -CATHETER FLUSH 10 ML SYR IV PRN; +DOCU-238 PO; -HOLD METFORMIN - RECEIVED CONTRAST 20 ML VIAL IV SCH; -IOHEXOL 350 MG/ML 100 ML (OMNIPAQUE 350) VIAL IV ONE; -NS 100 ML (IVPB) BAG IV ONE
== END 2020-07-07 09:27 | disposition home or self-care (01) ==
LOC: PREOP 05:29
PROVIDERS: ATTEND Surgery
DX: Z01.818 Encounter for other preprocedural examination (principal); R10.9 Unspecified abdominal pain; Z85.118 Personal history of other malignant neoplasm of bronchus and lung

== ENCOUNTER 2020-07-09 08:22 | Day surgery (SDC) | payer MEDICARE, OTHER ==
[2020-07-09] VITALS (10 sets, daily range): BP systolic 103–125; BP diastolic 51–80
[~2020-07-09] VITALS: Ht 154.9 cm; Wt 81.7 kg
[2020-07-09] MEDS: LACTATED RINGERS 1,000 ML IV PRN ×2 (08:39→10:24)
[2020-07-09] MEDS ORDERED: ROCURONIUM 10 MG/ML 5 ML SYRINGE IV ONE (08:44)
[2020-07-09] MEDS ORDERED: GLYCOPYRROLATE 0.2 MG/ML (ROBINUL) 2 ML VIAL ONE (08:44)
[2020-07-09] MEDS ORDERED: proPOfol 200 MG/20 ML (DIPRIVAN) VIAL IV ONE ×2 (08:44→10:58)
[2020-07-09] MEDS ORDERED: ONDANSETRON 4 MG/2 ML (SDV) Z0FRAN ONE (08:44)
[2020-07-09] MEDS ORDERED: LIDOCAINE PF 2% 5 ML (XYLOCAINE) VIAL ONE (08:44)
[2020-07-09] MEDS ORDERED: NEOSTIGMINE 3 MG/3 ML VIAL ONE (08:44)
[2020-07-09] MEDS ORDERED: ISOFLURANE (FORANE) 15 ML/15 MIN INHALATION ONE (08:44)
[2020-07-09] MEDS ORDERED: fentaNYL INJECTION 100 MCG/2 ML AMP ONE (08:45)
[2020-07-09] MEDS ORDERED: MIDAZOLAM 2 MG/2 ML (VERSED) VIAL ONE (08:45)
[2020-07-09] MEDS ORDERED: ceFAZolin 2 GM IV Premixed 50 ML IV ONE (08:45)
[2020-07-09] MEDS ORDERED: CATHETER FLUSH 10 ML SYR IV PRN (08:45)
--- NOTE | 2020-07-09 08:46 | Progress Note-Pre Operative ---
Pre-Operative Progress Note H&P Reviewed The H&P was reviewed, patient examined and no changes noted. Date Seen by Provider: Jul 09, 2020 Time Seen by Provider: 08:45 Date H&P Reviewed: Jul 09, 2020 Time H&P Reviewed: 08:40 Pre-Operative Diagnosis: Right side abdominal pain, history of right lung cancer CHANTEL BURKETT APRN Jul 09, 2020 08:46
--- NOTE | 2020-07-09 08:49 | Discharge Inst-Surgical ---
D/C Lap Instructions-KIDO Reconcile Patient Problems Problems Reviewed?: Yes New, Converted, or Re-Newed RX: RX on Chart Follow Up Appt in 2 weeks Activity as tolerated No driving for 24 hours No driving while on pain medications Incentive Spirometry use every 2 hours while awake High Fiber Diet 25g or more per day Avoid Alcohol, Caffeine, Spicy [place] and Acid foods. Drink 64 fluid oz or more of fluids per day. Bathing instructions: May shower Operative Area Clean/Dry; Keep incision clean/dry Symptoms to Report: Fever over 101 degree F, Nausea/Vomiting Infection Signs and Symptoms to report: Increased redness, Foul odor of wound, Increased drainage If any problems/questions: Contact your physician or go to Emergency Room CHANTEL BURKETT APRN Jul 09, 2020 08:49
[2020-07-09] MEDS ORDERED: HYDR-3817 PO (08:51)
[2020-07-09 08:56] LABS: BASOPHILS % (AUTO) 1 % (0-10); EOSINOPHILS # (AUTO) 0.2 10^3/uL (0.0-0.3); EOSINOPHILS % (AUTO) 4 % (0-10); HEMATOCRIT 44 % (35-52); LYMPHOCYTES % (AUTO) 19 % (12-44); MEAN CORPUSCULAR HEMOGLOBIN 28 pg (25-34); MEAN CORPUSCULAR HGB CONC 32 g/dL (32-36); MEAN CORPUSCULAR VOLUME 87 fL (80-99); MEAN PLATELET VOLUME 9.6 fL (9.0-12.2); MONOCYTES # (AUTO) 0.6 10^3/uL (0.0-1.0); MONOCYTES % (AUTO) 11 % (0-12); NEUTROPHILS # (AUTO) 3.5 10^3/uL (1.8-7.8); NEUTROPHILS % (AUTO) 65 % (42-75); PLATELET COUNT 275 10^3/uL (130-400); WHITE BLOOD COUNT 5.4 10^3/uL (4.3-11.0)
[2020-07-09] MEDS ORDERED: ONDANSETRON 4 MG/2 ML (SDV) Z0FRAN IVP PRN ×2 (09:00→11:45)
[2020-07-09] MEDS ORDERED: morphine INJ 10 MG/ML 1ML (SYR OR VIAL) IVP PRN (09:00)
[2020-07-09] MEDS ORDERED: HYDROcodone/APAP 5 MG/325 MG (LORTAB) TAB PO ONE (09:00)
[2020-07-09] MEDS ORDERED: ACETAMINOPHEN 325 MG TABLET PO PRN (09:00)
[2020-07-09] MEDS ORDERED: LIDOCAINE/EPI 1%-1:100,000 (XYLOCAINE) 50 ML ONE (09:07)
--- NOTE | 2020-07-09 11:07 | Progress Note-Post Operative ---
Post-Operative Progess Note Surgeon (s)/Spacer Type Bar And Segment (s) Surgeon Dr. Sloan Huertas M.D. Spacer Type Bar And Segment: Gilmar Burkett CORDWAINER Pre-Operative Diagnosis Right side abdominal pain, history of right lung cancer Post-Operative Diagnosis Right side abdominal wall subcutaneous lipoma 4x4 cm in size, reflux esophagitis stage II, small hiatal hernia (2 cm), moderate gastritis, mild anal stricture, moderate to severe sigmoid diverticulosis Procedure & Operative Findings Date of Procedure 07/09/20 Procedure Performed/Findings Excision of right abdominal wall lipoma 4x4 cm in size, EGD with biopsy, and colonoscopy Anesthesia Type GET Estimated Blood Loss Estimated blood loss (mL): minimal Specimens/Packing Specimens Removed 1) Right side abdominal wall lipoma 2) Antrum 3) GE junction GILMAR BURKETT CORDWAINER Jul 09, 2020 11:07
--- NOTE | 2020-07-09 11:41 | Anesthesia-General Post-Op ---
General Patient Condition Mental Status/LOC: Same as Preop Cardiovascular: Satisfactory Nausea/Vomiting: Absent Respiratory: Satisfactory Pain: Controlled Complications: Absent Post Op Complications Complications None Follow Up Care/Instructions Patient Instructions None needed. Anesthesia/Patient Condition Patient Condition Patient is doing well, no complaints, stable vital signs, no apparent adverse anesthesia problems. No complications reported per nursing. MICHAEL HAYES CRNA Jul 09, 2020 11:41
[2020-07-09] MEDS ORDERED: morphine INJ 10 MG/ML 1ML (SYR OR VIAL) IVP ONE (11:45)
[2020-07-09] MEDS ORDERED: fentaNYL INJECTION 100 MCG/2 ML AMP IVP ONE (11:45)
[2020-07-09] MEDS ORDERED: MEPERIDINE (DEMEROL) INJ 50 MG/ML IVP ONE (11:45)
--- NOTE | 2020-07-09 17:17 | OPERATIVE REPORT ---
DATE OF SERVICE: 07/09/2020 ATTENDING PRIMARY CARE PHYSICIAN: Baljit Mann DO PREOPERATIVE DIAGNOSES: Right lateral abdominal wall pain. PET scan showing hypermetabolic activity along the right upper abdomen with history of lung cancer. POSTOPERATIVE DIAGNOSES: Subcutaneous abdominal wall lipoma, 4 x 4 cm in size of the right lateral and mid abdomen, reflux esophagitis stage II, small hiatal hernia 2 cm in size, moderate gastritis, mild anal stenosis, moderate to severe sigmoid diverticulosis, no polyps or any neoplasms identified. PROCEDURE: Excision of abdominal wall subcutaneous lipoma, 4 x 4 cm in size. PROCEDURE: EGD with biopsy, colonoscopy. SURGEON: Roz Huertas MD TOOL SHAPER SET UP OPERATOR: Gilmar Khoury APRN ANESTHESIA: General endotracheal. ESTIMATED BLOOD LOSS: Minimal. FINDINGS: Same as postoperative diagnoses. DISPOSITION: The patient tolerated the procedure well. INDICATIONS: The patient is a 74-year-old female known to us. She has had multiple gastrointestinal issues for years including reflux, diarrhea as well as rectal bleeding. We had done a formal hemorrhoidectomy in 2012 due to stage III symptomatic external and internal hemorrhoids. She also has a known history of a hiatal hernia as well as a reflux esophagitis. She was diagnosed with right lung cancer in 2014 and underwent a right thoracotomy and right lower lobe lobectomy in 02/2015. She reports that she has had pain along the right lateral abdomen for some amount of time; however, the past few months this has worsened. She states that if there is mild pressure or trauma to the area. This makes her more. She had a CT scan performed, which did not show any lesions. She did have a PET scan done, which did show a small amount of hypermetabolic activity along the right upper abdomen. She was seen in the office and examined and she was found to have pain along the mid right lateral abdomen as well as a small lesion, which we could not ascertain as a neoplastic lesion versus a lipoma versus a hernia. Due to the positive PET scan, recommendation was to proceed with exploration as well as an EGD and colonoscopy. DESCRIPTION OF PROCEDURE: The patient was brought to the operating room, laid supine on the table. After adequate IV pain and sedative medications and general endotracheal intubation, the abdomen was prepped and draped in standard surgical fashion. A 0.5% Marcaine with epinephrine was used to anesthetize overlying skin in the mid right lateral abdomen and a transverse skin incision made using a 15 blade. We then proceeded with opening of the subcutaneous tissue and finger dissection and palpation with no hernias identified. There was a circumscribed lesion in the subcutaneous fat approximately 4 x 4 cm in size, which appeared to be a benign lipoma. This was excised using electrocautery with visualization of good hemostasis. Good hemostasis was observed and the subcutaneous tissue was reapproximated using 3-0 Vicryl interrupted sutures. Skin was closed using 4-0 Monocryl running subcuticular suture. Wound was then cleaned and covered with Dermabond, followed by a pressure dressing. We then proceeded with the EGD with the mouthpiece was applied and the endoscope was placed in the mouth, visualizing the pharynx and hypopharyngeal region. Vocal cords, epiglottis and vallecula identified and appeared to be normal. The endoscope was then intubated into esophageal opening and esophagus insufflated. The endoscope was then advanced to the first, second and third portion of esophagus at the level of the GE junction, reflux esophagitis stage II identified. There were no ulcers or strictures identified in this region. A biopsy was taken with forceps with visualization of good hemostasis. The endoscope was then advanced into the stomach and endoscope retroflexed, visualizing a small hiatal hernia approximately 2 to 3 cm in size. There was a moderate severity gastritis. No formal ulcerations, polyps, or any neoplasms. A biopsy was taken of the antrum to rule out H. pylori with visualization of good hemostasis. The endoscope was then advanced through the pylorus and the first and second portion of the duodenum, which appeared normal with no neoplastic lesions identified. The endoscope was then slowly withdrawn while taking a second look and suctioning of residual air with no additional findings. The patient was then placed in frog leg position and a digital rectal examination was performed, which revealed a mild anal stricture. Normal sphincter tone was felt and there were no palpable masses. The endoscope was then placed intubated into the anus and rectum gently insufflated. The endoscope was then advanced through the valves of [place] of the rectum with no polyps or any neoplasms identified. Through the sigmoid colon, there was a moderate to severe sigmoid diverticulosis. There were no inflammatory changes to indicate any active diverticulitis. The endoscope was then advanced through the remainder of the descending, transverse and ascending colon to the cecum. These segments were normal. There were no mucosal inflammatory changes as well as no neoplastic lesions identified. The endoscope was then slowly withdrawn while taking a second look and suctioning residual air with no additional findings. The patient tolerated the procedure well. We will recommend the necessary lifestyle and diet accommodation for reflux esophagitis as well as a hiatal hernia including small and more frequent meals, avoidance of eating at night as well as head elevation while lying supine. 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 We also recommend a high fiber diet with at least 30 grams of fiber daily or more as well as significant amounts of water to promote soft stools on a daily basis. We will have her follow up in approximately 2 weeks to reevaluate the wound as well as discuss the pathology results. Job ID: [id number] DocumentID: [id number] Dictated Date: 07/09/2020 11:39:15 Financial Officer Date: 07/09/2020 17:16:39 Dictated By: ROZ HUERTAS MD
== END 2020-07-09 13:20 | disposition home or self-care (01) ==
LOC: SDC 08:22
PROVIDERS: ATTEND Surgery
DX: K29.50 Unspecified chronic gastritis without bleeding (principal); K21.00 Gastro-esophageal reflux disease with esophagitis, without bleeding; K44.9 Diaphragmatic hernia without obstruction or gangrene; K62.4 Stenosis of anus and rectum; K57.30 Diverticulosis of large intestine without perforation or abscess without bleeding; D17.1 Benign lipomatous neoplasm of skin and subcutaneous tissue of trunk; F41.9 Anxiety disorder, unspecified; F32.9 Major depressive disorder, single episode, unspecified; E03.9 Hypothyroidism, unspecified; M19.90 Unspecified osteoarthritis, unspecified site; E66.9 Obesity, unspecified; Z68.34 Body mass index [BMI] 34.0-34.9, adult; Z79.899 Other long term (current) drug therapy; Z85.118 Personal history of other malignant neoplasm of bronchus and lung; Z83.3 Family history of diabetes mellitus
CPT/HCPCS: 36415; 85025; 87081; 88304; 88305

== ENCOUNTER 2020-08-17 10:17 | Outpatient (RCR) | payer MEDICARE, OTHER ==
[~2020-08-17 10:17] MED LIST changes: +HYDR-3817 PO
[2020-08-17 10:58] LABS: BASOPHILS % (AUTO) 0 % (0-10); EOSINOPHILS # (AUTO) 0.4 10^3/uL (0.0-0.3); EOSINOPHILS % (AUTO) 6 % (0-10); HEMATOCRIT 40 % (35-52); HEMOGLOBIN 12.9 g/dL (11.5-16.0); LYMPHOCYTES # (AUTO) 1.4 10^3/uL (1.0-4.0); LYMPHOCYTES % (AUTO) 24 % (12-44); MEAN CORPUSCULAR HEMOGLOBIN 28 pg (25-34); MEAN CORPUSCULAR HGB CONC 32 g/dL (32-36); MEAN CORPUSCULAR VOLUME 89 fL (80-99); MEAN PLATELET VOLUME 9.5 fL (9.0-12.2); MONOCYTES # (AUTO) 0.8 10^3/uL (0.0-1.0); MONOCYTES % (AUTO) 14 % (0-12); NEUTROPHILS # (AUTO) 3.2 10^3/uL (1.8-7.8); NEUTROPHILS % (AUTO) 56 % (42-75); PLATELET COUNT 264 10^3/uL (130-400); WHITE BLOOD COUNT 5.7 10^3/uL (4.3-11.0)
[2020-08-17 11:23] LABS: ALANINE AMINOTRANSFERASE 20 U/L (0-55); ALBUMIN 4.2 GM/DL (3.2-4.5); ALKALINE PHOSPHATASE 130 U/L (40-136); BILIRUBIN,TOTAL 0.5 MG/DL (0.1-1.0); BUN/CREATININE RATIO 19; CALCIUM 8.9 MG/DL (8.5-10.1); CARBON DIOXIDE 23 MMOL/L (21-32); CHLORIDE 106 MMOL/L (98-107); CREATININE SERUM 0.75 MG/DL (0.60-1.30); GFR ESTIMATED > 60; GLUCOSE 84 MG/DL (70-105); POTASSIUM 4.3 MMOL/L (3.6-5.0); SODIUM 139 MMOL/L (135-145); TOTAL PROTEIN 7.1 GM/DL (6.4-8.2)
--- NOTE | 2020-08-17 11:33 | Diagnostic Imaging Report ---
INDICATION: Right lung cancer PA and lateral chest Heart size and pulmonary vascularity are normal. Lungs are clear. There are no effusions or pneumothoraces. IMPRESSION: Negative chest. No change compared to 04/22/2020. Dictated by: Dictated on workstation # [id number]
== END 2020-09-20 | disposition home or self-care (01) ==
LOC: ONC 10:17
PROVIDERS: ATTEND Internal Medicine Hematology & Oncology
DX: C34.31 Malignant neoplasm of lower lobe, right bronchus or lung (principal); M84.48XA Pathological fracture, other site, initial encounter for fracture; K21.9 Gastro-esophageal reflux disease without esophagitis; R51.9 Headache, unspecified; Z79.899 Other long term (current) drug therapy; Z90.2 Acquired absence of lung [part of]
CPT/HCPCS: 71046; 80053; 85025; 99213

== ENCOUNTER → 2020-11-20 | Outpatient (CLI) | payer MEDICARE, OTHER ==
[~2020-11-20] MED LIST changes: -ACYC400T PO; +ACYC400T21 PO; +CATHETER FLUSH 10 ML SYR IV PRN; -DOCU-238 PO; +DOCU-241 PO; +HOLD METFORMIN - RECEIVED CONTRAST 20 ML VIAL IV SCH; +IOHEXOL 350 MG/ML 100 ML (OMNIPAQUE 350) VIAL IV ONE; +NS 100 ML (IVPB) BAG IV ONE
--- NOTE | 2020-11-20 13:19 | Diagnostic Imaging Report ---
PROCEDURE: CT chest with contrast, CT abdomen with and without contrast. TECHNIQUE: Precontrast acquisitions were acquired through the abdomen. Multiple contiguous axial images were obtained through the chest and abdomen after administration of intravenous contrast. Auto Exposure Controls were utilized during the CT exam to meet ALARA standards for radiation dose reduction. INDICATION: Malignant neoplasm of lower lobe. The previous CT chest, abdomen and pelvis exam of 06/15/2020 failed to show any evidence for an acute abnormality or for metastatic disease. On this exam the images through the thorax show that the lungs remain generally clear. The small area of increased density in the right infrahilar region seen previously is again evident and not significantly changed (image 52 of 171). There is no parenchymal lung mass to suggest malignancy and there is no sign of an acute pneumonia or pleural effusion. The heart is stable in size. The aorta is not abnormally dilated and there is no sign of a dissection. There is no defect within the pulmonary arteries to indicate a pulmonary embolus. There is no mediastinal or hilar adenopathy. The thyroid gland where visualized is unremarkable. There is no obvious breast mass. The images through the abdomen show that the liver is homogeneous and mildly enlarged. The liver does seem similar to the prior study. There is no focal defect within the liver to suggest metastatic disease. The spleen, pancreas, adrenals, kidneys, aorta and inferior vena cava and portal vein show no sign of an acute abnormality. The gallbladder is surgically absent. There is some gas and fluid in both the large and small bowel in a nonspecific fashion. There is no evidence for a bowel obstruction. The bone windows show no evidence for a fracture or for a destructive lesion. Post-kyphoplasty changes involving T11 and T12 are again noted. IMPRESSION: The appearance of the chest and abdomen is stable when compared to the prior exam. There is still no evidence for an acute abnormality or for metastatic disease. Dictated by: Dictated on workstation # [id number]
--- NOTE | 2020-11-20 18:29 | Diagnostic Imaging Report ---
EXAMINATION: Whole body bone scan. INDICATION: Lung cancer. TECHNIQUE: This study was performed following administration of 25.4 mCi of 99m technetium MDP. Anterior and posterior whole body images were obtained. FINDINGS: The previous whole body bone scan performed on 06/15/2020 noted very mild uptake involving the lower anterior right rib. That finding is no longer evident on this study. There is a small area of increased activity in the lower cervical spine on the left. This is unchanged when compared to the prior study and is most likely secondary to degenerative disease. There is no other focal area of increased or decreased activity to suggest neoplastic disease. Bilateral total knee prostheses are again evident. There is excretion of the radiotracer by both kidneys. IMPRESSION: \. The area of increased activity involving the right 12th rib seen previously has resolved. I suspect that finding was related to trauma as opposed to metastatic disease. There is no abnormal uptake to suggest metastatic disease at this time. Dictated by: Dictated on workstation # [id number]
== END ==
LOC: RAD 11:21
PROVIDERS: ATTEND Internal Medicine Hematology & Oncology
DX: C34.90 Malignant neoplasm of unspecified part of unspecified bronchus or lung (principal)
CPT/HCPCS: 71260; 74170; 78306; A9503

== ENCOUNTER → 2020-11-20 | Outpatient (CLI) | payer MEDICARE, OTHER ==
[~2020-11-20] MED LIST changes: -CATHETER FLUSH 10 ML SYR IV PRN; -HOLD METFORMIN - RECEIVED CONTRAST 20 ML VIAL IV SCH; -IOHEXOL 350 MG/ML 100 ML (OMNIPAQUE 350) VIAL IV ONE; -NS 100 ML (IVPB) BAG IV ONE
--- NOTE | 2020-11-20 12:56 | Diagnostic Imaging Report ---
PROCEDURE: US Thyroid. TECHNIQUE: Multiple real-time grayscale images were obtained of the thyroid in various projections. INDICATION: Thyroid nodule. FINDINGS: The previous thyroid ultrasound exam performed on 08/30/2019 noted stable bilateral nodules when compared to the prior exam of 04/13/2018. On this study, those nodules are again identified. The nodule in the right lobe now measures 6 x 4 x 6 mm as opposed to 5 x 6 x 5 mm previously. The nodule in the left lobe is estimated to be 7 x 3 x 5 mm. On the prior exam this nodule measures 7 x 4 x 6 mm. There is no other focal mass involving either lobe of the thyroid. The thyroid gland itself is not enlarged with the right lobe measuring 3.8 x 1.2 x 1.8 cm and the left lobe estimated to be 3.8 x 1.3 x 1.5 cm (normal gland size 4 - 5 x 2 x 2 cm or less). IMPRESSION: When compared to the prior exam, there does not appear to have been any adverse change. The small benign-appearing nodules in each lobe noted on the prior study appears stable. Dictated by: Dictated on workstation # [id number]
== END ==
LOC: RAD 11:16
PROVIDERS: ATTEND Internal Medicine
DX: E04.2 Nontoxic multinodular goiter (principal)
CPT/HCPCS: 76536

== ENCOUNTER 2021-01-27 10:19 | Outpatient (RCR) | payer MEDICARE, OTHER ==
[2020-11-20 11:53] LABS: BASOPHILS % (AUTO) 1 % (0-10); EOSINOPHILS # (AUTO) 0.2 10^3/uL (0.0-0.3); EOSINOPHILS % (AUTO) 3 % (0-10); HEMATOCRIT 44 % (35-52); HEMOGLOBIN 14.5 g/dL (11.5-16.0); LYMPHOCYTES # (AUTO) 1.4 10^3/uL (1.0-4.0); LYMPHOCYTES % (AUTO) 20 % (12-44); MEAN CORPUSCULAR HEMOGLOBIN 29 pg (25-34); MEAN CORPUSCULAR HGB CONC 33 g/dL (32-36); MEAN CORPUSCULAR VOLUME 88 fL (80-99); MEAN PLATELET VOLUME 9.2 fL (9.0-12.2); MONOCYTES # (AUTO) 0.7 10^3/uL (0.0-1.0); MONOCYTES % (AUTO) 10 % (0-12); NEUTROPHILS # (AUTO) 4.5 10^3/uL (1.8-7.8); NEUTROPHILS % (AUTO) 66 % (42-75); PLATELET COUNT 289 10^3/uL (130-400); WHITE BLOOD COUNT 6.9 10^3/uL (4.3-11.0)
[2020-11-20 12:13] LABS: ALANINE AMINOTRANSFERASE 19 U/L (0-55); ALBUMIN 4.4 GM/DL (3.2-4.5); ALKALINE PHOSPHATASE 136 U/L (40-136); BILIRUBIN,TOTAL 0.9 MG/DL (0.1-1.0); BUN/CREATININE RATIO 23; CALCIUM 9.2 MG/DL (8.5-10.1); CARBON DIOXIDE 23 MMOL/L (21-32); CHLORIDE 106 MMOL/L (98-107); CREATININE SERUM 0.77 MG/DL (0.60-1.30); GFR ESTIMATED > 60; GLUCOSE 92 MG/DL (70-105); POTASSIUM 4.1 MMOL/L (3.6-5.0); SODIUM 140 MMOL/L (135-145); TOTAL PROTEIN 7.4 GM/DL (6.4-8.2)
[~2021-01-27 10:19] MED LIST changes: +CATHETER FLUSH 10 ML SYR IV PRN; -DOCU-241 PO; +DOCU-26 PO
[2021-01-27 11:04] LABS: BASOPHILS % (AUTO) 1 % (0-10); EOSINOPHILS # (AUTO) 0.2 10^3/uL (0.0-0.3); EOSINOPHILS % (AUTO) 3 % (0-10); HEMATOCRIT 43 % (35-52); HEMOGLOBIN 13.6 g/dL (11.5-16.0); LYMPHOCYTES # (AUTO) 1.2 10^3/uL (1.0-4.0); LYMPHOCYTES % (AUTO) 23 % (12-44); MEAN CORPUSCULAR HEMOGLOBIN 29 pg (25-34); MEAN CORPUSCULAR HGB CONC 32 g/dL (32-36); MEAN CORPUSCULAR VOLUME 90 fL (80-99); MEAN PLATELET VOLUME 9.7 fL (9.0-12.2); MONOCYTES # (AUTO) 0.6 10^3/uL (0.0-1.0); MONOCYTES % (AUTO) 11 % (0-12); NEUTROPHILS # (AUTO) 3.4 10^3/uL (1.8-7.8); NEUTROPHILS % (AUTO) 62 % (42-75); PLATELET COUNT 259 10^3/uL (130-400); WHITE BLOOD COUNT 5.5 10^3/uL (4.3-11.0)
[2021-01-27 11:21] LABS: ALBUMIN 4.1 GM/DL (3.2-4.5); BILIRUBIN,TOTAL 0.7 MG/DL (0.1-1.0); CALCIUM 9.1 MG/DL (8.5-10.1); CREATININE SERUM 0.75 MG/DL (0.60-1.30); POTASSIUM 4.1 MMOL/L (3.6-5.0); TOTAL PROTEIN 7.5 GM/DL (6.4-8.2)
== END 2021-02-18 | disposition home or self-care (01) ==
LOC: ONC 10:19
PROVIDERS: ATTEND Internal Medicine Hematology & Oncology
DX: C34.31 Malignant neoplasm of lower lobe, right bronchus or lung (principal)
CPT/HCPCS: 80053; 85025; 99213

== ENCOUNTER → 2021-04-19 | Outpatient (CLI) | payer MEDICARE, OTHER ==
[~2021-04-19] MED LIST changes: +HOLD METFORMIN - RECEIVED CONTRAST 20 ML VIAL IV SCH; +IOHEXOL 350 MG/ML 100 ML (OMNIPAQUE 350) VIAL IV ONE; +NS 100 ML (IVPB) BAG IV ONE
--- NOTE | 2021-04-19 14:22 | Diagnostic Imaging Report ---
PROCEDURE: CT chest with contrast, CT abdomen with and without contrast. TECHNIQUE: Precontrast acquisitions were acquired through the abdomen. Multiple contiguous axial images were obtained through the chest and abdomen after administration of intravenous contrast. Auto Exposure Controls were utilized during the CT exam to meet ALARA standards for radiation dose reduction. INDICATION: Lung cancer. On chemotherapy. Chest pain. COMPARISON: 11/20/2020. CT chest: The heart size is within normal limits. No pericardial effusion is present. There is no mediastinal, hilar, or axillary lymphadenopathy. Postsurgical changes of partial lobectomy are seen in the right lower lung. There is stable volume loss in the right hemithorax. No pulmonary nodules or masses. There are no focal areas of consolidation. No pneumothoraces are present. No central endobronchial obstructing lesions are identified. There are no pleural effusions. Prior kyphoplasty changes are seen at T11 and T12. CT abdomen: The liver, spleen, pancreas, adrenal glands, and kidneys have a normal appearance. The gallbladder is surgically absent. There is no pathologically enlarged mesenteric or retroperitoneal adenopathy. A small hiatal hernia is present. The included bowel loops are nondilated. There is no free fluid or free air. The osseous structures are age-appropriate. IMPRESSION: 1. Stable appearance of the chest and abdomen without evidence of metastatic disease or acute abnormalities. 2. Small hiatal hernia. 3. Stable postsurgical changes in the right lung. Dictated by: Dictated on workstation # [id number]
--- NOTE | 2021-04-19 16:39 | Diagnostic Imaging Report ---
INDICATION: History of lung cancer COMPARISON: 11/20/2020 Tc-99m MDP: 26.5 mCi IV FINDINGS: The skeleton was imaged in anterior and posterior views with the moving gamma camera. There is normal distribution of tracer throughout the skeleton. No abnormal focal area of increased or decreased tracer accumulation is identified. Small focus of uptake is again identified within the lower cervical spine on the left and is felt to be degenerative in nature. Bilateral knee prostheses are also again noted. IMPRESSION: No abnormal uptake to suggest osseous metastatic disease. Dictated by: Dictated on workstation # [id number]
== END ==
LOC: CARD 11:00
PROVIDERS: ATTEND Nurse Practitioner Adult Health
DX: K44.9 Diaphragmatic hernia without obstruction or gangrene (principal); Z98.890 Other specified postprocedural states; Z85.118 Personal history of other malignant neoplasm of bronchus and lung
CPT/HCPCS: 71260; 74170; 78306; A9503

== ENCOUNTER 2021-05-20 10:39 | Outpatient (RCR) | payer MEDICARE, OTHER ==
[2021-03-24 12:45] LABS: BASOPHILS # (AUTO) 0.1 10^3/uL (0.0-0.1); BASOPHILS % (AUTO) 1 % (0-10); EOSINOPHILS # (AUTO) 0.2 10^3/uL (0.0-0.3); EOSINOPHILS % (AUTO) 3 % (0-10); HEMATOCRIT 44 % (35-52); HEMOGLOBIN 14.1 g/dL (11.5-16.0); LYMPHOCYTES # (AUTO) 1.5 10^3/uL (1.0-4.0); LYMPHOCYTES % (AUTO) 21 % (12-44); MEAN CORPUSCULAR HEMOGLOBIN 29 pg (25-34); MEAN CORPUSCULAR HGB CONC 32 g/dL (32-36); MEAN CORPUSCULAR VOLUME 91 fL (80-99); MEAN PLATELET VOLUME 9.2 fL (9.0-12.2); MONOCYTES # (AUTO) 0.6 10^3/uL (0.0-1.0); MONOCYTES % (AUTO) 9 % (0-12); NEUTROPHILS # (AUTO) 4.5 10^3/uL (1.8-7.8); NEUTROPHILS % (AUTO) 65 % (42-75); PLATELET COUNT 287 10^3/uL (130-400); WHITE BLOOD COUNT 6.8 10^3/uL (4.3-11.0)
[2021-03-24 13:16] LABS: ALBUMIN 4.4 GM/DL (3.2-4.5); BILIRUBIN,TOTAL 0.7 MG/DL (0.1-1.0); CALCIUM 9.3 MG/DL (8.5-10.1); CREATININE SERUM 0.75 MG/DL (0.60-1.30); TOTAL PROTEIN 7.5 GM/DL (6.4-8.2)
[~2021-05-20 10:39] MED LIST changes: -CATHETER FLUSH 10 ML SYR IV PRN; -HOLD METFORMIN - RECEIVED CONTRAST 20 ML VIAL IV SCH; -IOHEXOL 350 MG/ML 100 ML (OMNIPAQUE 350) VIAL IV ONE; -NS 100 ML (IVPB) BAG IV ONE
[2021-05-20 10:54] LABS: BASOPHILS # (AUTO) 0.1 10^3/uL (0.0-0.1); BASOPHILS % (AUTO) 1 % (0-10); EOSINOPHILS # (AUTO) 0.2 10^3/uL (0.0-0.3); EOSINOPHILS % (AUTO) 3 % (0-10); HEMATOCRIT 43 % (35-52); HEMOGLOBIN 13.9 g/dL (11.5-16.0); LYMPHOCYTES % (AUTO) 18 % (12-44); MEAN CORPUSCULAR HEMOGLOBIN 28 pg (25-34); MEAN CORPUSCULAR HGB CONC 32 g/dL (32-36); MEAN CORPUSCULAR VOLUME 88 fL (80-99); MEAN PLATELET VOLUME 9.5 fL (9.0-12.2); MONOCYTES # (AUTO) 0.6 10^3/uL (0.0-1.0); MONOCYTES % (AUTO) 11 % (0-12); NEUTROPHILS # (AUTO) 3.5 10^3/uL (1.8-7.8); NEUTROPHILS % (AUTO) 67 % (42-75); PLATELET COUNT 281 10^3/uL (130-400); WHITE BLOOD COUNT 5.3 10^3/uL (4.3-11.0)
[2021-05-20 11:18] LABS: ALBUMIN 4.3 GM/DL (3.2-4.5); BILIRUBIN,TOTAL 0.9 MG/DL (0.1-1.0); CREATININE SERUM 0.81 MG/DL (0.60-1.30); POTASSIUM 3.9 MMOL/L (3.6-5.0); TOTAL PROTEIN 7.3 GM/DL (6.4-8.2)
== END 2021-06-18 | disposition home or self-care (01) ==
LOC: ONC 10:39
PROVIDERS: ATTEND Internal Medicine Hematology & Oncology
DX: C34.31 Malignant neoplasm of lower lobe, right bronchus or lung (principal); K21.9 Gastro-esophageal reflux disease without esophagitis; M47.819 Spondylosis without myelopathy or radiculopathy, site unspecified; M84.48XA Pathological fracture, other site, initial encounter for fracture; F41.8 Other specified anxiety disorders; Z79.899 Other long term (current) drug therapy; Z90.2 Acquired absence of lung [part of]
CPT/HCPCS: 80053; 85025; G0463; 99213

== ENCOUNTER → 2021-08-09 | Outpatient (CLI) | payer MEDICARE, OTHER ==
--- NOTE | 2021-08-09 12:22 | Diagnostic Imaging Report ---
PROCEDURE: US Thyroid. TECHNIQUE: Multiple Real-time grayscale images were obtained of the thyroid in various projections. INDICATION: Thyroid nodule. COMPARISON: 11/20/2020, 08/30/2019, 04/13/2018, 08/31/2015, and 08/20/2014. FINDINGS: The right lobe of the thyroid gland measures 3.5 x 1.4 x 1.3 cm. An ovoid hypoechoic nodule with circumscribed margins measuring 0.8 x 0.7 x 0.4 cm is noted within the inferior pole of the right thyroid lobe. This has not significantly changed since 2014. No new right thyroid nodules. The left lobe of the thyroid gland measures 3.4 x 1.3 x 1.5 cm. A solid 0.6 x 0.5 cm hypoechoic nodule is seen within the anterior aspect of the left mid thyroid lobe. This has not significantly changed since the prior examinations dating back to 2014. No new left thyroid nodules. The isthmus is unremarkable. IMPRESSION: Bilateral subcentimeter thyroid nodules, not significantly changed since 2014, consistent with a benign etiology. No new thyroid nodules. Dictated by: Dictated on workstation # [id number]
== END ==
LOC: RAD 10:30
PROVIDERS: ATTEND Nurse Practitioner Family
DX: E04.2 Nontoxic multinodular goiter (principal)
CPT/HCPCS: 76536

== ENCOUNTER → 2021-10-29 | Outpatient (CLI) | payer MEDICARE, OTHER ==
--- NOTE | 2021-10-29 13:53 | Diagnostic Imaging Report ---
Indication: Bilateral 3-D digital screening with CAD CAD is utilized. The current study was also evaluated with a Computer Aided Detection (CAD) system. COMPARISON: 08/30/2019 FINDINGS: Density 2. No breast mass, spiculated lesion, architectural distortion, suspicious calcifications or evidence for malignancy or interval changes have occurred. IMPRESSION: BI-RADS Category 1 ACR BI-RADS Category 1: Negative. Result letter will be mailed to the patient. Note: At least 10% of breast cancer is not imaged by mammography. Dictated by: Dictated on workstation # [id number]
== END ==
LOC: RAD 11:15
PROVIDERS: ATTEND Nurse Practitioner Family
DX: Z12.31 Encounter for screening mammogram for malignant neoplasm of breast (principal)
CPT/HCPCS: 77063; 77067

== ENCOUNTER 2022-02-17 09:16 | Outpatient (CLI) | payer MEDICARE, OTHER ==
[~2022-02-17] VITALS: Ht 155 cm; Wt 81.7 kg
[2022-02-17 09:25] VITALS: BP 123/76
[2022-02-17] MEDS ORDERED: diphenhydrAMINE 50 MG/ML INJ (BENADRYL) IV PRN (09:30)
[2022-02-17] MEDS ORDERED: ACETAMINOPHEN 500 MG TAB (TYLENOL) PO PRN (09:30)
[2022-02-17] MEDS ORDERED: BEBTELOVIMAB 175 MG/2 ML VIAL IV ONE (09:30)
[2022-02-17] MEDS ORDERED: ONDANSETRON 4 MG/2 ML (SDV) Z0FRAN IV PRN (09:30)
[2022-02-17] MEDS ORDERED: EPINEPHrine INJECTION 1 MG/ML AMP IM PRN (09:30)
[2022-02-17 10:14] VITALS: BP 120/67
== END 2022-02-17 10:15 | disposition home or self-care (01) ==
LOC: INFUSION 09:16
PROVIDERS: ATTEND Nurse Practitioner Family
DX: U07.1 COVID-19 (principal)

== ENCOUNTER → 2022-11-23 | Outpatient (CLI) | payer MEDICARE, OTHER ==
--- NOTE | 2022-11-23 12:24 | Diagnostic Imaging Report ---
INDICATION: Routine screening. Comparison is made with prior mammogram from 10/29/2021 and 08/30/2019. 2-D and 3-D bilateral screening mammography was performed with CAD. Scattered fibroglandular densities are identified bilaterally. The parenchymal pattern is stable. No mass or malignant-appearing microcalcifications are seen. Axillae are unremarkable. IMPRESSION: No mammographic features suspicious for malignancy are identified. ACR BI-RADS Category 1: Negative. Result letter will be mailed to the patient. Note: At least 10% of breast cancer is not imaged by mammography. BI-RADS Category 1 Dictated by: Dictated on workstation # [id number]
--- NOTE | 2022-11-23 16:16 | Diagnostic Imaging Report ---
INDICATION: Thyroid nodules, follow-up. TECHNIQUE: Grayscale sonographic images of the thyroid gland. CORRELATION STUDIES: 03/10/2014-08/09/2021. FINDINGS: RIGHT LOBE: 4.0 x 1.2 x 1.6 cm. Slightly hypoechoic, solid nodule at the junction of the isthmus and right thyroid lobe, currently 0.8 x 0.5 x 0.6 cm (previous 0.8 x 0.7 x 0.4 cm) cc. Appears unchanged. LEFT LOBE: 3.5 x 1.3 x 1.3 cm. Isodense slightly hypoechoic nodule with internal vascular blood flow currently measures 0.8 x 0.4 x 0.6 cm (previously 0.6 x 0.5 x 0.4 cm). Stable to perhaps minimally larger. Isthmus appears unremarkable. IMPRESSION: Small subcentimeter bilateral nodules. Overall without significant adverse interval change from prior, favoring a benign or indolent process. (Normal gland size: 4-5 x 2 x 2 cm) Dictated by: Dictated on workstation # [id number]
== END ==
LOC: RAD 08:55
PROVIDERS: ATTEND Nurse Practitioner Family
DX: Z12.31 Encounter for screening mammogram for malignant neoplasm of breast (principal); E04.2 Nontoxic multinodular goiter
CPT/HCPCS: 76536; 77063; 77067

== ENCOUNTER → 2022-12-27 | Outpatient (CLI) | payer MEDICARE, OTHER ==
[~2022-12-27] MED LIST changes: +CATHETER FLUSH 10 ML SYR IV PRN; +HOLD METFORMIN - RECEIVED CONTRAST 20 ML VIAL IV SCH; +IOHEXOL 350 MG/ML 100 ML (OMNIPAQUE 350) VIAL IV ONE; +NS 100 ML (IVPB) BAG IV ONE
--- NOTE | 2022-12-27 18:19 | Diagnostic Imaging Report ---
PROCEDURE: CT abdomen and pelvis with contrast. TECHNIQUE: Multiple contiguous axial images were obtained through the abdomen and pelvis after administration of intravenous contrast. Auto Exposure Controls were utilized during the CT exam to meet ALARA standards for radiation dose reduction. All CT scans use one or more of the following dose optimizing techniques: Automated exposure control, MA and/or KvP adjustment based on patient size and exam type or iterative reconstruction. INDICATION: Abdominal pain. COMPARISON: Correlation is made with prior CT from 04/19/2021. FINDINGS: The lung bases are clear. The liver is enlarged at approximately 21 cm. There appears to be generalized low attenuation consistent with hepatic steatosis. No liver mass is identified. Gallbladder is surgically absent. There is no biliary ductal dilatation. Pancreas and spleen are unremarkable. No adrenal mass is identified. Kidneys are unremarkable. Aorta is nonaneurysmal. Bowel loops are normal in caliber. There is diverticulosis of the sigmoid, but no evidence of acute diverticulitis. There is no ascites. There is moderate stool in the colon. No inflammatory changes are seen. The bladder is unremarkable. Uterus appears to be surgically absent. Bony structures are nonacute. IMPRESSION: 1. Hepatomegaly and hepatic steatosis. 2. Moderate stool load, correlate for constipation. There is uncomplicated diverticulosis. Dictated by: Dictated on workstation # [id number]
== END ==
LOC: RAD 17:32
PROVIDERS: ATTEND Nurse Practitioner Family
DX: K76.0 Fatty (change of) liver, not elsewhere classified (principal); K57.30 Diverticulosis of large intestine without perforation or abscess without bleeding
CPT/HCPCS: 74177